=== PATIENT | female | born 1965 | race Caucasian/White ===

== ENCOUNTER → 2019-10-21 12:14 | Outpatient (BNVA) | payer OTHER, SELFPAY | PROVIDERS: Family Provider Family Medicine; PCP Nurse Practitioner Family; Visit Provider Nurse Practitioner Family | DX: Z11.59 Encounter for screening for other viral diseases (principal) | CPT/HCPCS: 87400; 87635 ==

== ENCOUNTER 2020-07-12 09:10 | Outpatient (CLI) | payer SELFPAY ==
--- NOTE | 2020-07-12 09:15 | CT_ITS ---
WS: [id number] CT ABDOMEN PELVIS TECHNIQUE: Noncontrast CT of the abdomen and pelvis with coronal and sagittal reformatted images. CLINICAL INFORMATION: LEFT LOWER QUADRANT ABDOMINAL SWELLING, MASS AND LUMP COMPARISON: CT abdomen pelvis , prior ultrasound June 25, 2020 DLP: 825.[address] scans at [facility] use at least one of these dose optimization techniques: automat ed exposure control; mA and/or kV adjustment per patient size (includes targeted exams where dose is matched to clinical indication); or iterative reconstruction. FINDINGS: Normal noncontrast liver. Noncontrast gallbladder is normal. Normal noncontrast spleen. Lung bases ar e well aerated. Normal GE junction. Adrenal glands are normal. No hydronephrosis in either kidney. No obstructing renal or ureteral calculi. Tiny fat-containing umbilical hernia. No abdominal or pelvic lymphadenopathy. No free fluid in the pelvis. Prior appendectomy. No pelvic or inguinal lymphadenopathy. No visualized left lower quadrant hernia. No herniated bowel. Fatty atrophy of the rectus abdominous. Rectus abdominis diastases. CT/CT abdomen pelvis wo con 19122 IMPRESSION: 1. Small fat-containing umbilical hernia. Rectus abdominis diastases. 2. Fatty atrophy of the left rectus abdominis. No ventral abdominal wall herni a or herniated bowel. 3. No inguinal lymphadenopathy. 4. No other significant changes from previous.
== END 2020-07-12 09:11 | disposition home or self-care (01) ==
PROVIDERS: Family Provider Family Medicine; PCP Nurse Practitioner Family; Visit Provider Family Medicine
DX: R19.04 Left lower quadrant abdominal swelling, mass and lump (principal); Q79.59 Other congenital malformations of abdominal wall
CPT/HCPCS: 74176

== ENCOUNTER 2021-08-14 08:09 | Day surgery (SDC) | payer OTHER, SELFPAY ==
[2021-08-12 14:17] VITALS: BMI 24.2
--- NOTE | 2021-08-13 17:44 | SUR.PREOP ---
patients called 08/13 to ask about patients insulin. he states patient tested blood sugar at home and it read high . I asked pt what was the highest number their meter would read and he stated 600 then it reads high . patient took 50units long acting lantus already as stated per . pt and pt want to know if she can take short acting insulin and states she always has to eat with this because her sugar will drop fast after it is given. They also state the patient has been in the icu several times recently in [facility] due to high blood sugar levels. I called Dr. Zhou and reported patients BS level to him and asked if she could take her short acting insulin. He stated yes they could and to take orange juice if it dropped too low after this. He stated he would still do scheduled procedure tomorrow. I called patients back to tell him this. patients asks if Dr. Zhou would consider admitting her to the hospital overnight to watch her BS level before planned procedure tomorrow and that he doesnt feel like she is safe without it being watched more closely. I advised him to have her seen in the ER if he felt that her BS level was unsafe with her history of recent admissions due to blood sugar. I transferred him to the lead data entry operator and told him to be connected to Dr. Zhou for his further questions of possible admission.
--- NOTE | 2021-08-14 08:41 | W.PM.OPSUD ---
Surgery/Procedure H&P Update DATE OF PROCEDURE: August 14, 2021 DATE H&P PERFORMED: 07/17/21 CHANGES TO PREVIOUS DOCUMENTATION: none PREOP DIAGNOSIS: Constipation and nausea PLANNED PROCEDURE: Operation Date: 08/14/21 09:45 Proposed Procedures p 22070 EGD 32632 COLON K59.00,R11.0(Not Applicable) - DO wilbur Yusuf Colonoscopy(Not Applicable) - Raf Zhou DO
[2021-08-14 08:43] VITALS: BP 133/76; PULSE 54; RESP 18; TEMP 36.2; O2SAT 100
[2021-08-14] MEDS: sodium chloride 0.9% 1,000 ML 30 ML IV (08:43)
--- NOTE | 2021-08-14 08:53 | ANES.PREANE2 ---
Pre-Anesthetic Assessment Height/Weight: Height 1.63 m Weight 63.957 kg Temp Pulse Resp BP Pulse Ox 97.2 F L 54 L 18 133/76 100 08/14/21 08:43 08/14/21 08:43 08/14/21 08:43 08/14/21 08:43 08/14/21 08:43 Preop Diagnosis: Constipation and nausea Operation Date: 08/14/21 09:45 Proposed Procedures p 05860 EGD 20933 COLON K59.00,R11.0(Not Applicable) - DO wilbur Yusuf Colonoscopy(Not Applicable) - Raf Zhou DO Familial anesthetic complications: None Was Beta Beth taken within 24 hours: N/A Was Clonidine taken within 24 hours: N/A Last intake: Intake Last Liquid Date 08/14/21 Last Liquid Time 03:30 Last Solid Date 08/12/21 Last Solid Time 09:00 Social Tobacco and No alcohol Exam alert, oriented x 3, clear to auscultation bilaterally and regular rate & rhythm Airway Mallampati: Class I Dentition: chipped and loose Pulmonary Asthma GI gastroparesis Metabolic Diabetes Mellitus (very poorly controlled - multiple episodes DKA) and Hyperlipidemia Anesthetic Plan ASA status: 4 Anesthesia: MAC Risk of > 500 ml blood loss (7ml/kg in children): No Medications/Allergies Home Medications Medication Instructions Recorded Confirmed Last Taken Type insulin aspart U-100 100 unit/mL 20 unit SUBCUT TID 10/21/19 08/14/21 08/12/21 History (3 mL) subcutaneous pen (Novolog Flexpen U-100 Insulin aspart) aspirin 81 mg tablet,delayed 81 mg PO DAILY 07/17/21 08/14/21 08/12/21 History release (Adult Aspirin Regimen) atorvastatin 20 mg tablet 20 mg PO DAILY 07/17/21 08/14/21 08/13/21 History lisinopril 2.5 mg tablet 2.5 mg PO DAILY 07/17/21 08/14/21 08/12/21 History ondansetron 4 mg disintegrating 4 mg PO Q6H 07/17/21 08/14/21 08/12/21 History tablet insulin glargine 100 unit/mL 50 unit SUBCUT DAILY 08/12/21 08/14/21 08/13/21 History subcutaneous solution (Lantus U-100 Insulin) Allergies Allergy/AdvReac Type Severity Reaction Status Date / Time adhesive tape Allergy blisters Verified 08/14/21 08:39 codeine Allergy hives Verified 08/14/21 08:39 Current Medications Generic Name Dose Route Start Last Admin Trade Name Giovany PRN Reason Stop Dose Admin Sodium Chloride 1,000 mls @ 30 mls/hr 08/14/21 08:30 08/14/21 08:43 Sodium Chloride 0.9% IV 08/15/21 08:29 30 mls/hr .Q24H BRUCE Administration PFSH Anesthesia Medical History Constipation Diabetes DKA (diabetic ketoacidosis) Gastroparesis [place] spotted fever 2015 Surgical History History of 3 sections History of laparoscopic appendectomy History of tonsillectomy Family History Other Cancer Diabetes Hypertension Social History Smoking and tobacco status: current every day smoker Data Anesthesia Cardiac Studies: No Data to Display
[2021-08-14] MEDS: dextrose 50% syringe 50 mL 25 ML IVP (08:58)
[2021-08-14 10:16] VITALS: BP 132/76; PULSE 55; RESP 16; TEMP 36.2; O2SAT 100
[2021-08-14 10:36] VITALS: BP 143/82; PULSE 59; RESP 18; O2SAT 100
--- NOTE | 2021-08-14 13:48 | ANE.PACU2 ---
Inpatient post-anesthesia follow up: Airway intact: Yes Vital signs: Temperature 97.1 F Pulse Rate 59 Respiratory Rate 18 Blood Pressure 143/82 Pulse Oximetry 100 Oxygen Delivery Me thod Room Air Oxygen Flow Rate Fraction of Inspir ed Oxygen Hydration adequate: Yes Nausea and vomiting: No Pain level: 1 Mental status: Baseline
== END 2021-08-14 10:55 | disposition home or self-care (01) ==
PROVIDERS: PCP Nurse Practitioner Family; Visit Provider Surgery
PROC: 0DJ08ZZ Inspection of Upper Intestinal Tract, Via Natural or Artificial Opening Endoscopic (ICD-10-PCS; CPT 43235; principal; 2021-08-14 09:45)
PROC: 0DJD8ZZ Inspection of Lower Intestinal Tract, Via Natural or Artificial Opening Endoscopic (ICD-10-PCS; CPT 45378; 2021-08-14 09:45)
DX: K59.00 Constipation, unspecified (principal); R11.0 Nausea; K64.8 Other hemorrhoids; K29.70 Gastritis, unspecified, without bleeding; K29.80 Duodenitis without bleeding; E11.9 Type 2 diabetes mellitus without complications; E78.5 Hyperlipidemia, unspecified; Z79.4 Long term (current) use of insulin; Z79.82 Long term (current) use of aspirin; F17.210 Nicotine dependence, cigarettes, uncomplicated
CPT/HCPCS: 43239; 45378; 88305; 96374; J2704; J3490; J7030

== ENCOUNTER → 2021-08-29 15:40 | Outpatient (BNVA) | payer OTHER, SELFPAY | PROVIDERS: PCP Nurse Practitioner Family; Referring Provider Nurse Practitioner Family; Visit Provider Internal Medicine | DX: E13.9 Other specified diabetes mellitus without complications (principal); E78.2 Mixed hyperlipidemia; K31.84 Gastroparesis | CPT/HCPCS: 36415; 82947; 84681; 86337; 86341 ==

== ENCOUNTER → 2021-09-25 12:25 | Outpatient (BNVA) | payer MEDICAID, SELFPAY | PROVIDERS: PCP Nurse Practitioner Family; Visit Provider Internal Medicine | DX: E10.649 Type 1 diabetes mellitus with hypoglycemia without coma (principal); E87.6 Hypokalemia; E83.52 Hypercalcemia; E78.2 Mixed hyperlipidemia; K31.84 Gastroparesis; K90.0 Celiac disease; F17.200 Nicotine dependence, unspecified, uncomplicated; Z79.4 Long term (current) use of insulin | CPT/HCPCS: 36415; 80048; 81001; 82310; 83735; 83970; 99214 ==

== ENCOUNTER 2021-11-19 10:13 | Day surgery (SDC) | payer MEDICAID, SELFPAY ==
[2021-11-18 10:48] VITALS: BMI 24.9
[2021-11-19] VITALS (9 sets, daily range): BP systolic 113–137; BP diastolic 62–78; PULSE 52–66; RESP 16–20; TEMP 36.1–36.4; O2SAT 97–100
[2021-11-19] MEDS: sodium chloride 0.9% 1,000 ML 30 ML IV (10:47)
[2021-11-19 10:49] LABS: Glucose Point of Care 144 mg/dL (70-110)
[2021-11-19 10:51] LABS: OR HCG Qualitative Urine Negative (Negative)
--- NOTE | 2021-11-19 11:13 | P.ANESASSM_ITS ---
Pre-Anesthetic Assessment Height/Weight: Height 1.63 m Weight 65.771 kg Temp Pulse Resp BP Pulse Ox O2 Del Method 97.6 F 52 L 16 130/69 100 11/19/21 10:37 11/19/21 10:37 11/19/21 10:37 11/19/21 10:37 11/19/21 10:37 11/19/21 10:37 Preop Diagnosis: Excision of scalp masses Operation Date: 11/19/21 11:40 Proposed Procedures p excision of scalp mass 26659,R22.0(Not Applicable) - Filiberto Medina MD Was Beta Beth taken within 24 hours: N/A Was Clonidine taken within 24 hours: N/A Last intake: Intake Last Liquid Date 11/18/21 Last Liquid Time 22:30 Last Solid Date 11/18/21 Last Solid Time 22:30 Social Tobacco and No alcohol 1/2 ppd pack(s) per day Exam alert, oriented x 3, clear to auscultation bilaterally and regular rate & rhythm Airway Submandibular: within normal limits Cervical ROM: within normal limits Mallampati: Class II Dentition: full History/ROS No significant history except as noted and No significant complaints Pulmonary None reported CV/HEM None reported None reported Hepatic None reported GI None reported Metabolic Diabetes Mellitus Type 1. Insulin pump Musc/skel None reported Neuropsych None reported Anesthetic Plan ASA status: 2 Anesthesia: Anesthesia Evaluation and MAC Risk of > 500 ml blood loss (7ml/kg in children): No Medications/Allergies Home Medications Medication Instructions Recorded Confirmed Last Taken Type aspirin 81 mg tablet,delayed 81 mg PO DAILY 07/17/21 11/19/21 11/17/21 History release (Adult Aspirin Regimen) ondansetron 4 mg disintegrating 4 mg PO Q6H 07/17/21 11/19/21 11/18/21 History tablet glucagon HCl 1 mg solution for 1 mg SUBCUT Q20M PRN hypoglycemia 08/29/21 11/19/21 Unknown Rx injection (Glucagon (HCl) #1 ea Emergency Kit) fexofenadine 60 mg-pseudoephedrine 1 tab PO Q12H PRN sinus symptoms 09/29/21 11/19/21 11/18/21 Rx ER 120 mg tablet,ext.release,12 hr 14 days #30 tabs (Katharine-D 12 Hour) fluticasone propionate 50 1 spray intranasal BID PRN nasal 09/29/21 11/19/21 11/18/21 Rx mcg/actuation nasal congestion #9.9 mL spray,suspension (Flonase Allergy Relief) meclizine 50 mg tablet (Antivert) 50 mg PO BID PRN dizziness #20 tabs 09/30/21 11/19/21 11/18/21 Rx pseudoephedrine HCl 120 mg 120 mg PO BID PRN nasal congestion 09/30/21 11/19/21 11/18/21 Rx tablet,extended release (Sudafed #30 tabs 12 Hour) insulin aspart U-100 100 unit/mL 20 unit (0.2 mL) SUBCUT TID #20 mL 10/09/21 11/19/21 11/18/21 Rx (3 mL) subcutaneous pen (Novolog Flexpen U-100 Insulin aspart) albuterol sulfate 90 mcg/actuation 2 puff inhalation QID PRN 10/14/21 11/18/21 Unknown Rx aerosol inhaler (ProAir HFA) shortness of breath or wheezing 30 days #18 grams atorvastatin 20 mg tablet 20 mg PO DAILY 90 days #90 tabs 10/14/21 11/19/21 11/12/21 Rx blood-glucose meter,continuous #1 ea 10/14/21 11/11/21 Unknown Rx (Dexcom G6 [address] Clerk misc) blood-glucose sensor (Dexcom G6 #9 ea 10/14/21 11/11/21 Unknown Rx Sensor device) blood-glucose transmitter (Dexcom #3 ea 10/14/21 11/11/21 Unknown Rx G6 Transmitter device) hydroxyzine HCl 10 mg tablet 10 mg PO TID PRN anxiety #90 tabs 10/14/21 11/19/21 11/18/21 Rx insulin pump cart,automated,BT #30 ea 10/14/21 11/11/21 Unknown Rx (Omnipod 5 G6 Pods (Gen 5) subcutaneous cartridge) insulin pump cartridge,automated #1 ea 10/14/21 11/11/21 Unknown Rx dose,BT with controller subcutaneous (Omnipod 5 G6 Intro Kit (Gen 5) subcutaneous cartridge with controller) lisinopril 2.5 mg tablet 2.5 mg PO DAILY 90 days #90 tabs 10/14/21 11/19/21 11/18/21 Rx Allergies Allergy/AdvReac Type Severity Reaction Status Date / Time adhesive tape Allergy blisters Verified 11/18/21 10:45 codeine Allergy hives Verified 11/18/21 10:45 Current Medications Generic Name Dose Route Start Last Admin Trade Name Giovany PRN Reason Stop Dose Admin Sodium Chloride 1,000 mls @ 30 mls/hr 11/19/21 10:30 11/19/21 10:47 Sodium Chloride 0.9% IV 11/20/21 10:29 30 mls/hr .Q24H BRUCE Administration PFSH Anesthesia Medical History Celiac disease Constipation Diabetes DKA (diabetic ketoacidosis) Gastroparesis [place] spotted fever 2015 Surgical History History of 3 sections History of laparoscopic appendectomy History of tonsillectomy Family History Sister Clotting disorder Other Cancer Diabetes Hypertension Denies family history of Bleeding disorder Thyroid disease Stroke Social History Smoking and tobacco status: current every day smoker (a pack ) Data Anesthesia Cardiac Studies: No Data to Display
--- NOTE | 2021-11-19 11:44 | W.PM.OPSUD ---
Surgery/Procedure H&P Update DATE OF PROCEDURE: November 19, 2021 DATE H&P PERFORMED: 10/28/21 H&P UPDATE INFORMATION: I have reviewed H&P completed within last 30 days, I have examined patient prior to procedure and No changes to prior documentation PREOP DIAGNOSIS: Excision of scalp masses PRIMARY INDICATION FOR PROCEDURE: The same PLANNED PROCEDURE: Operation Date: 11/19/21 11:40 Proposed Procedures p excision of scalp mass 80857,R22.0(Not Applicable) - Filiberto Medina MD
[2021-11-19] MEDS: ceFAZolin 2,000 MG in sodium chloride 0.9% (plus) 50 ML 100 MG IV (11:56)
[2021-11-19] MEDS: neomycin-poly-bacitracin oint 28 gm 1 APPLIC TOPICAL (12:34)
--- NOTE | 2021-11-19 12:38 | P.OP_ITS ---
Operative Report Date of procedure: November 19, 2021 Pre-op diagnosis: Preop Diagnosis Excision of scalp masses Post-op diagnosis: Sebaceous cysts of the scalp Procedure done: Excision of scalp masses Specimens removed/disposition: Anterior scalp mass 1.5 x 1.5 cm with a skin ellipse Posterior scalp mass 1.5 x 1.5 cm Surgeon: Filiberto Medina MD Truck Terminal Manager: certified composites technician Cely Circulating nurse Martha Anesthesia: General (LMA ARIANA De La Torre) Estimated blood loss (mL): 10 Procedure: After identifying the patient holding area, the scalp mass was marked before the procedure by myself, patient was then taken to the operative suite, was placed in supine position LMA was placed by anesthesia, IV propofol was infused by the anesthesia, prophylactic IV antibiotics were given per protocol, patient was then positioned in the left lateral position were all pressure points were padded and left ax roll was placed. Prep and drape of the scalp lesions waere done under the usual sterile technique after appropriate removal of the hair around the scalp masses Time-out was done verifying the patient's name/date of /planned procedure and destination after the procedure, all were in agreement. After palpation of the anterior scalp mass, I did an elliptical incision on top of the mass including the punctum, dissection was carried after the skin incision all the way to the periosteum, after appropriate dissection, the specimen was then passed to the circulating nurse for permanent pathology. Thorough irrigation of the cavity was done and hemostasis, followed by single layer 2-0 nylon horizontal mattress sutures Lidocaine 1% was injected at the site of the incision that prior to the injection aspiration was done to make sure no injection is going into any vessel, followed by double antibiotic ointment and dry dresing. Same technique was used towards the posterior scalp mass and dissection was done. The specimen was then passed to the circulating nurse for permanent pathology, followed by irrigation and hemostasis, then Single layer 2 nylon horizontal mattress sutures were applied followed by triple antibiotic and dry dressing. Patient tolerated the procedure well, count of instruments, needles and sponges were completed at the end of the procedure. And then patient was taken to the recovery area in stable condition. I Was present for the whole entire procedure
[2021-11-19] MEDS: HYDROcodone-acetaminophen 5-325 mg Tablet 1 TAB PO (13:36)
--- NOTE | 2021-11-19 15:20 | ANE.PACU2 ---
Inpatient post-anesthesia follow up: Airway intact: Yes Vital signs: Temperature 97.4 F Pulse Rate 57 Respiratory Rate 16 Blood Pressure 126/78 Pulse Oximetry 100 Oxygen Delivery Me thod Room Air Oxygen Flow Rate Fraction of Inspir ed Oxygen Hydration adequate: Yes Nausea and vomiting: No Pain level: 2 Mental status: Baseline
== END 2021-11-19 13:55 | disposition home or self-care (01) ==
PROVIDERS: Anesthesiology; PCP Family Medicine; Visit Provider Surgery
PROC: (CPT 11422; principal; 2021-11-19 11:30)
DX: R22.0 Localized swelling, mass and lump, head (principal); E11.9 Type 2 diabetes mellitus without complications; F17.210 Nicotine dependence, cigarettes, uncomplicated
CPT/HCPCS: 11422 ×2; 36416; 81025; 82962; 84703; 88304; J1100; J2405; J2704; J3010; J3490; J7030

== ENCOUNTER → 2021-11-21 10:25 | Outpatient (BNVA) | payer MEDICAID, SELFPAY | PROVIDERS: PCP Family Medicine; Referring Provider Family Medicine; Visit Provider Podiatrist Foot & Ankle Surgery | DX: Q82.8 Other specified congenital malformations of skin (principal); M20.12 Hallux valgus (acquired), left foot; M20.11 Hallux valgus (acquired), right foot; M21.611 Bunion of right foot; M21.612 Bunion of left foot | CPT/HCPCS: 73630 ==

== ENCOUNTER → 2021-12-10 11:16 | Outpatient (BNVA) | payer MEDICAID, SELFPAY | PROVIDERS: PCP Family Medicine; Visit Provider Nurse Practitioner Family | DX: J11.1 Influenza due to unidentified influenza virus with other respiratory manifestations (principal); B34.9 Viral infection, unspecified; H65.191 Other acute nonsuppurative otitis media, right ear | CPT/HCPCS: 87400 ==

== ENCOUNTER → 2021-12-19 14:00 | Outpatient (BNVA) | payer MEDICAID, SELFPAY | PROVIDERS: PCP Family Medicine; Visit Provider Family Medicine | DX: H93.11 Tinnitus, right ear (principal); H91.91 Unspecified hearing loss, right ear; H26.9 Unspecified cataract; E13.9 Other specified diabetes mellitus without complications; E11.9 Type 2 diabetes mellitus without complications; E78.2 Mixed hyperlipidemia; H25.89 Other age-related cataract; E87.6 Hypokalemia | CPT/HCPCS: 36415; 80053; 80061; 83036 ==

== ENCOUNTER → 2022-01-22 15:05 | Outpatient (BNVA) | payer MEDICAID, SELFPAY | PROVIDERS: PCP Family Medicine; Visit Provider Nurse Practitioner Family | DX: R68.89 Other general symptoms and signs (principal); U07.1 COVID-19 | CPT/HCPCS: 87400; 87426 ==

== ENCOUNTER 2022-02-20 11:52 | Outpatient (CLI) | payer MEDICAID, SELFPAY ==
[2022-02-20 13:13] LABS: Creatinine Urine, Random 92 mg/dL (28-217); Microalbum Creatinine Ratio Ur 11 mg/dL (0-20); Microalbumin Random Urine 1 ug/dL (0-20)
[2022-02-20 13:16] LABS: Estmated Average Glucose 186; Hemoglobin A1C 8.1 % (4.0-6.0)
== END 2022-02-20 11:53 | disposition home or self-care (01) ==
LOC: LAB 11:55
PROVIDERS: PCP Family Medicine; Visit Provider Internal Medicine
DX: E78.2 Mixed hyperlipidemia (principal)
CPT/HCPCS: 36415; 82044; 83036

== ENCOUNTER 2022-03-25 14:41 | Emergency (ER) | payer MEDICAID, SELFPAY ==
[2022-03-25] VITALS (7 sets, daily range): BP systolic 115–141; BP diastolic 66–85; PULSE 64–74; RESP 16–18; TEMP 36.4; O2SAT 97–100; BMI 26.4
[2022-03-25 15:39] LABS: Glucose Point of Care > 600 mg/dL (70-110)
[2022-03-25 16:12] LABS: Basophils # 0.1 10^3/uL (0.0-0.1); Basophils % 1.3 %; Eosinophils # 0.5 10^3/uL (0.0-0.8); Eosinophils % 5.6 %; Hematocrit 44.9 % (37.0-47.0); Hemoglobin 14.9 g/dL (11.5-15.3); Lymphocytes # 1.8 10^3/uL (0.8-4.8); Mean Corpuscular HGB Conc 33.2 g/dL (30.0-36.0); Mean Corpuscular Hemoglobin 30.1 pg (28.0-34.0); Mean Corpuscular Volume 90.7 fl (81-99); Mean Platelet Volume 10.4 fL (7.4-10.4); Monocytes # 0.6 10^3/uL (0.2-0.9); Monocytes % 6.8 %; Neutrophils # 5.35 10^3/uL (1.8-7.7); Neutrophils % 63.9 %; Nucleated Red Blood Cells % 0 %; Platelet Count 202 10^3/cmm (130-400); Red Blood Count 4.95 10^6/uL (4.1-5.3); Red Cell Distribution Width 11.5 % (12.1-15.1); White Blood Count 8.4 10^3/uL (4.0-10.0)
--- NOTE | 2022-03-25 16:17 | ED_ITS ---
Documented by User: Antonio Foley DO 04/02/22 16:18 HPI - General Adult General: Chief complaint: General Medical Stated complaint: high bloodsugar Time Seen by Provider: 03/25/22 15:53 Source: patient Mode of arrival: ambulatory History of Present Illness: 56-year-old female presents to the emergency room with elevated blood sugars. She usually uses a Dexcom and insulin pump there was some kind of problem with her Dexcom on now her Dexcom is working but her insulin pump will not receive any input from her Dexcom so her pump has not been working properly and she has had to go back to using Lantus and sliding scale insulin. She been taking Lantus at night and using sliding scale throughout the day her blood sugars however are significantly elevated she denies any dysuria urgency or frequency. She denies any abdominal pain chest pain cough shortness of breath. Onset (ago): day(s) Relieving factors: none Exacerbating factors: none Associated symptoms: Reports malaise; Deny chest pain, confusion, cough, diaphoresis, decreased appetite, dyspnea, fevers/chills, headache(s), nausea, rash, palpitations, seizures, short of breath, syncope, vomiting or weakness Treatments prior to arrival: none Review of Systems Const: Reports: fatigue and malaise; Denies: fever(s), chills or diaphoresis ENMT: Denies: throat pain, ear or mastoid pain, nasal discharge or nasal congestion Card: Denies: chest pain, palpitations or syncope Resp: Denies: dyspnea, productive cough or non-productive cough GI: Denies: nausea or vomiting : Denies: flank pain, difficulty voiding, dysuria, urinary frequency or urinary urgency Skin/Breast: Denies: rash Neuro: Denies: headache(s) or confusion PFSH ED PFSH: Medical History Celiac disease Constipation Diabetes DKA (diabetic ketoacidosis) Gastroparesis [place] spotted fever 2016 Scalp mass Surgical History History of 3 sections History of laparoscopic appendectomy History of tonsillectomy Hx of colonoscopy Family History Sister Clotting disorder Other Cancer Diabetes Hypertension Denies family history of Bleeding disorder Thyroid disease Stroke Social History Smoking and tobacco status: current every day smoker (a pack ) Physical Exam Const: GENERAL APPEARANCE: cooperative and comfortable ORIENTATION/CONSCIOUSNESS: Yes awake, Yes oriented to person, Yes oriented to place and Yes oriented to time HENMT: COMMON NORMALS: normocephalic, atraumatic and hearing grossly normal bilaterally HEAD & SCALP: normocephalic and atraumatic Resp: COMMON NORMALS: normal respiratory effort, No retractions, No use of accessory muscles and clear to auscultation bilaterally AUSCULTATION: clear to auscultation bilaterally Cardio: COMMON NORMALS: regular rate, regular rhythm and No murmurs present (Cardio) RATE: regular rate RHYTHM: regular rhythm GI: COMMON NORMALS: Soft to palpation and No hepatosplenomegaly present AUSCULTATION: Yes normoactive bowel sounds PALPATION: Yes Soft to palpation, No Tenderness to palpation present (GI), No Guarding due to palpation present (GI) and Yes No hepatosplenomegaly present Extremity: COMMON NORMALS: normal to inspection, capillary refill normal, no clubbing, cyanosis or edema, no calf tenderness and no pedal edema Neuro: SENSORIUM/ORIENTATION: Yes oriented to person, Yes oriented to place and Yes oriented to time Skin: COMMON NORMALS: no rashes or lesions noted GENERAL SKIN EXAM: no rashes or lesions noted Course Vital Signs: Vital signs: Vital Signs Temperature 97.5 F L 03/25/22 15:29 Pulse Rate 72 03/25/22 20:30 Respiratory Rate 18 03/25/22 20:30 Blood Pressure 132/78 03/25/22 20:30 Pulse Oximetry 97 03/25/22 20:30 Oxygen Delivery Me thod 03/25/22 18:40 MDM - General Adult Medical Decision Making Care signed out to Dr. Morrison at change of shift. See final notes for diagnosis and disposition. Patient presents here with hyperglycemia as her insulin pump is 1 out she is not DKA her blood sugar here is improved had a long conversation with patient patient also spoke to Dr. Bermudez with me in the room and adjusted her insulin at this time until she is able to get her insulin pump working she is to follow-up with Dr. Bermudez tomorrow as well patient is to return if worsening she understands agrees to plan. Medical Records I reviewed the patient's medical records. Lab Data I reviewed the patient's lab results. 03/25/22 16:03 03/25/22 16:03 Laboratory Results WBC 8.4 10^3/uL (4.0-10.0) 03/25/22 16:03 RBC 4.95 10^6/uL (4.1-5.3) 03/25/22 16:03 Hgb 14.9 g/dL (11.5-15.3) 03/25/22 16:03 Hct 44.9 % (37.0-47.0) 03/25/22 16:03 MCV 90.7 fl (81-99) 03/25/22 16:03 MCH 30.1 pg (28.0-34.0) 03/25/22 16:03 MCHC 33.2 g/dL (30.0-36.0) 03/25/22 16:03 RDW 11.5 % (12.1-15.1) L 03/25/22 16:03 Plt Count 202 10^3/cmm (130-400) 03/25/22 16:03 MPV 10.4 fL (7.4-10.4) 03/25/22 16:03 Neut % (Auto) 63.9 % 03/25/22 16:03 Lymph % (Auto) 22.0 % 03/25/22 16:03 [place] % (Auto) 6.8 % 03/25/22 16:03 Eos % (Auto) 5.6 % 03/25/22 16:03 Baso % (Auto) 1.3 % 03/25/22 16:03 Neut # (Auto) 5.35 10^3/uL (1.8-7.7) 03/25/22 16:03 Lymph # (Auto) 1.8 10^3/uL (0.8-4.8) 03/25/22 16:03 [place] # (Auto) 0.6 10^3/uL (0.2-0.9) 03/25/22 16:03 Eos # (Auto) 0.5 10^3/uL (0.0-0.8) 03/25/22 16:03 Baso # (Auto) 0.1 10^3/uL (0.0-0.1) 03/25/22 16:03 Nucleated RBC % (auto) 0 % 03/25/22 16:03 Nucleated RBCs # 0.0 /100WBC 03/25/22 16:03 Specimen Type Arterial 03/25/22 16:33 Sample Site Radial, right 03/25/22 16:33 ABG pH 7.43 (7.35-7.45) 03/25/22 16:33 ABG pCO2 37.5 mmHg (35-45) 03/25/22 16:33 ABG pO2 103.0 mmHg (80.0-100.0) H 03/25/22 16:33 ABG HCO3 24.9 mmol/L (22-26) 03/25/22 16:33 ABG O2 Saturation 99.3 03/25/22 16:33 ABG Base Excess 0.8 mmol/L (-2.0-2.0) 03/25/22 16:33 Nate Test Pos 03/25/22 16:33 A-a O2 Gradient 0.1 mmHg (5-10) L 03/25/22 16:33 Hematocrit 43.7 % (37-47) 03/25/22 16:33 Hgb O2 Saturation 93.1 % (95-100) L 03/25/22 16:33 Carboxyhemoglobin 6.0 %THgb (0.4-20.1) 03/25/22 16:33 Methemoglobin 0.3 % (0.4-1.5) L 03/25/22 16:33 Total Hemoglobin 14.3 g/dL (12-16) 03/25/22 16:33 Sodium 129.0 mmol/L (131-143) L 03/25/22 16:33 Potassium 4.9 mmol/L (3.5-5.0) 03/25/22 16:33 Glucose 592.0 mg/dL (70-115) H 03/25/22 16:33 Ionized Calcium 1.2 mmol/L (1.1-1.4) 03/25/22 16:33 O2 Delivery Device Room air 03/25/22 16:33 FiO2 21.0 % 03/25/22 16:33 Dispensing Operator ID glc 03/25/22 16:33 Sodium 129 mmol/L (136-145) L 03/25/22 16:03 Potassium 5.1 mmol/L (3.5-5.1) 03/25/22 16:03 Chloride 92 mmol/L (98-107) L 03/25/22 16:03 Carbon Dioxide 24 mmol/L (22-29) 03/25/22 16:03 Anion Gap 18.1 (5-19) 03/25/22 16:03 BUN 18 mg/dL (6-20) 03/25/22 16:03 Creatinine 0.6 mg/dL (0.5-0.9) 03/25/22 16:03 GFR Calculation 104.2 mL/min (90-130) 03/25/22 16:03 Glucose 690 mg/dL (65-115) H* 03/25/22 16:03 POC Glucose 405 mg/dL (70-110) H 03/25/22 20:10 Calculated Osmolality 303 mOsm/kg (285-295) H 03/25/22 16:03 Calcium 9.0 mg/dL (8.5-10.5) 03/25/22 16:03 Total Bilirubin 0.7 mg/dL (0.15-1.2) 03/25/22 16:03 AST 31 U/L (0-32) 03/25/22 16:03 ALT 49 U/L (0-33) H 03/25/22 16:03 Alkaline Phosphatase 158 U/L (35-105) H 03/25/22 16:03 Total Protein 7.0 g/dL (6.6-8.7) 03/25/22 16:03 Albumin 3.9 g/dL (3.5-5.2) 03/25/22 16:03 Globulin 3.1 g/dL (1.3-4.6) 03/25/22 16:03 Urine Color Yellow (Yellow) 03/25/22 16:32 Urine Appearance Clear (CLEAR) 03/25/22 16:32 Urine pH 5 (5-7) 03/25/22 16:32 Ur Specific [place] 1.010 (1.005-1.030) 03/25/22 16:32 Urine Protein Neg (Negative) 03/25/22 16:32 Urine Glucose (UA) 4+ (Normal) H 03/25/22 16:32 Urine Ketones 1+ (Negative) H 03/25/22 16:32 Urine Blood Neg (Negative) 03/25/22 16:32 Urine Nitrate Negative (Negative) 03/25/22 16:32 Urine Bilirubin Neg (Negative) 03/25/22 16:32 Urine Urobilinogen Neg mg/dL (Negative) 03/25/22 16:32 Ur Leukocyte Esterase Negative (Negative) 03/25/22 16:32 Serum Ketones Negative (Negative) 03/25/22 16:03 Discharge Plan Discharge Patient Disposition: Home Clinical Impression: Hyperglycemia Condition: Stable Prescriptions: No Action atorvastatin 20 mg tablet 20 mg PO DAILY 90 Days Qty: 90 3RF lisinopril 2.5 mg tablet 2.5 mg PO DAILY 90 Days Qty: 90 1RF hydroxyzine HCl 10 mg tablet 10 mg PO TID PRN (Reason: anxiety) Qty: 90 1RF albuterol sulfate [ProAir HFA] 90 mcg/actuation HFA aerosol inhaler 2 puff inhalation QID PRN (Reason: shortness of breath or wheezing) 30 Days Qty: 18 5RF aspirin [Adult Aspirin Regimen] 81 mg tablet,delayed release (DR/EC) 81 mg PO DAILY Hold Instructions: Resume on 11/23/21. ondansetron 4 mg tablet,disintegrating 4 mg PO Q6H Glucagon (HCl) Emergency Kit 1 mg recon soln 1 mg SUBCUT Q20M PRN (Reason: hypoglycemia) Qty: 1 3RF Rx Instructions: until target blood sugar attained Antivert 50 mg tablet 50 mg PO BID PRN (Reason: dizziness) Qty: 20 0RF insulin aspart U-100 [Novolog FlexPen U-100 Insulin] 100 unit/mL (3 mL) insulin pen 20 unit SUBCUT TID Qty: 20 3RF Rx Instructions: via pump (DME) Dexcom G6 Transmitter Device See Rx Instructions .Route Qty: 3 3RF Rx Instructions: Change every 90 days. (DME) Dexcom G6 Photography Sales Associate Misc See Rx Instructions .Route Qty: 1 0RF Rx Instructions: Check BS 4 - 6 times a day. (DME) Dexcom G6 Sensor Device See Rx Instructions .Route Qty: 9 3RF Rx Instructions: Change every 10 days. (DME) Omnipod 5 G6 Intro Kit (Gen 5) Cartridge See Rx Instructions .Route Qty: 1 0RF Rx Instructions: As directed (DME) Omnipod 5 G6 Pods (Gen 5) Cartridge See Rx Instructions .Route Qty: 30 3RF Rx Instructions: Change every 3 days. Discharge Orders: Discharge ED (Routine); Ordered 03/25/22 Ordered By: Yakov Morrison Referrals: Brenna Bermudez MD [Physician] - 1-3 days Carla Blevins MD [Primary Care Provider] - Discharge Diet: Advance as tolerated Discharge Activity: Resume usual activity Patient Instructions: Diabetic Hyperglycemia (ED) Stand Alone Forms: Work/School Release Coding Level of Care Code ED Granulizing Machine Operator for Chg Fwd Documented by User: Yakov Morrison MD 03/25/22 20:18 HPI - General Adult General: Chief complaint: General Medical Stated complaint: high bloodsugar Time Seen by Provider: 03/25/22 15:53 PFSH ED PFSH: Medical History Celiac disease Constipation Diabetes DKA (diabetic ketoacidosis) Gastroparesis [place] spotted fever 2016 Scalp mass Surgical History History of 3 sections History of laparoscopic appendectomy History of tonsillectomy Hx of colonoscopy Family History Sister Clotting disorder Other Cancer Diabetes Hypertension Denies family history of Bleeding disorder Thyroid disease Stroke Social History Smoking and tobacco status: current every day smoker (a pack ) Course Vital Signs: Vital signs: Vital Signs Temperature 97.5 F L 03/25/22 15:29 Pulse Rate 72 03/25/22 20:30 Respiratory Rate 18 03/25/22 20:30 Blood Pressure 132/78 03/25/22 20:30 Pulse Oximetry 97 03/25/22 20:30 Oxygen Delivery Me thod 03/25/22 18:40 MDM - General Adult Medical Decision Making Patient presents here with hyperglycemia as her insulin pump is 1 out she is not DKA her blood sugar here is improved had a long conversation with patient patient also spoke to Dr. Bermudez with me in the room and adjusted her insulin at t his time until she is able to get her insulin pump working she is to follow-up with Dr. Bermudez tomorrow as well patient is to return if worsening she understands agrees to plan. Lab Data 03/25/22 16:03 03/25/22 16:03 Laboratory Results WBC 8.4 10^3/uL (4.0-10.0) 03/25/22 16:03 RBC 4.95 10^6/uL (4.1-5.3) 03/25/22 16:03 Hgb 14.9 g/dL (11.5-15.3) 03/25/22 16:03 Hct 44.9 % (37.0-47.0) 03/25/22 16:03 MCV 90.7 fl (81-99) 03/25/22 16:03 MCH 30.1 pg (28.0-34.0) 03/25/22 16:03 MCHC 33.2 g/dL (30.0-36.0) 03/25/22 16:03 RDW 11.5 % (12.1-15.1) L 03/25/22 16:03 Plt Count 202 10^3/cmm (130-400) 03/25/22 16:03 MPV 10.4 fL (7.4-10.4) 03/25/22 16:03 Neut % (Auto) 63.9 % 03/25/22 16:03 Lymph % (Auto) 22.0 % 03/25/22 16:03 [place] % (Auto) 6.8 % 03/25/22 16:03 Eos % (Auto) 5.6 % 03/25/22 16:03 Baso % (Auto) 1.3 % 03/25/22 16:03 Neut # (Auto) 5.35 10^3/uL (1.8-7.7) 03/25/22 16:03 Lymph # (Auto) 1.8 10^3/uL (0.8-4.8) 03/25/22 16:03 [place] # (Auto) 0.6 10^3/uL (0.2-0.9) 03/25/22 16:03 Eos # (Auto) 0.5 10^3/uL (0.0-0.8) 03/25/22 16:03 Baso # (Auto) 0.1 10^3/uL (0.0-0.1) 03/25/22 16:03 Nucleated RBC % (auto) 0 % 03/25/22 16:03 Nucleated RBCs # 0.0 /100WBC 03/25/22 16:03 Specimen Type Arterial 03/25/22 16:33 Sample Site Radial, right 03/25/22 16:33 ABG pH 7.43 (7.35-7.45) 03/25/22 16:33 ABG pCO2 37.5 mmHg (35-45) 03/25/22 16:33 ABG pO2 103.0 mmHg (80.0-100.0) H 03/25/22 16:33 ABG HCO3 24.9 mmol/L (22-26) 03/25/22 16:33 ABG O2 Saturation 99.3 03/25/22 16:33 ABG Base Excess 0.8 mmol/L (-2.0-2.0) 03/25/22 16:33 Nate Test Pos 03/25/22 16:33 A-a O2 Gradient 0.1 mmHg (5-10) L 03/25/22 16:33 Hematocrit 43.7 % (37-47) 03/25/22 16:33 Hgb O2 Saturation 93.1 % (95-100) L 03/25/22 16:33 Carboxyhemoglobin 6.0 %THgb (0.4-20.1) 03/25/22 16:33 Methemoglobin 0.3 % (0.4-1.5) L 03/25/22 16:33 Total Hemoglobin 14.3 g/dL (12-16) 03/25/22 16:33 Sodium 129.0 mmol/L (131-143) L 03/25/22 16:33 Potassium 4.9 mmol/L (3.5-5.0) 03/25/22 16:33 Glucose 592.0 mg/dL (70-115) H 03/25/22 16:33 Ionized Calcium 1.2 mmol/L (1.1-1.4) 03/25/22 16:33 O2 Delivery Device Room air 03/25/22 16:33 FiO2 21.0 % 03/25/22 16:33 Dispensing Operator ID glc 03/25/22 16:33 Sodium 129 mmol/L (136-145) L 03/25/22 16:03 Potassium 5.1 mmol/L (3.5-5.1) 03/25/22 16:03 Chloride 92 mmol/L (98-107) L 03/25/22 16:03 Carbon Dioxide 24 mmol/L (22-29) 03/25/22 16:03 Anion Gap 18.1 (5-19) 03/25/22 16:03 BUN 18 mg/dL (6-20) 03/25/22 16:03 Creatinine 0.6 mg/dL (0.5-0.9) 03/25/22 16:03 GFR Calculation 104.2 mL/min (90-130) 03/25/22 16:03 Glucose 690 mg/dL (65-115) H* 03/25/22 16:03 POC Glucose 405 mg/dL (70-110) H 03/25/22 20:10 Calculated Osmolality 303 mOsm/kg (285-295) H 03/25/22 16:03 Calcium 9.0 mg/dL (8.5-10.5) 03/25/22 16:03 Total Bilirubin 0.7 mg/dL (0.15-1.2) 03/25/22 16:03 AST 31 U/L (0-32) 03/25/22 16:03 ALT 49 U/L (0-33) H 03/25/22 16:03 Alkaline Phosphatase 158 U/L (35-105) H 03/25/22 16:03 Total Protein 7.0 g/dL (6.6-8.7) 03/25/22 16:03 Albumin 3.9 g/dL (3.5-5.2) 03/25/22 16:03 Globulin 3.1 g/dL (1.3-4.6) 03/25/22 16:03 Urine Color Yellow (Yellow) 03/25/22 16:32 Urine Appearance Clear (CLEAR) 03/25/22 16:32 Urine pH 5 (5-7) 03/25/22 16:32 Ur Specific [place] 1.010 (1.005-1.030) 03/25/22 16:32 Urine Protein Neg (Negative) 03/25/22 16:32 Urine Glucose (UA) 4+ (Normal) H 03/25/22 16:32 Urine Ketones 1+ (Negative) H 03/25/22 16:32 Urine Blood Neg (Negative) 03/25/22 16:32 Urine Nitrate Negative (Negative) 03/25/22 16:32 Urine Bilirubin Neg (Negative) 03/25/22 16:32 Urine Urobilinogen Neg mg/dL (Negative) 03/25/22 16:32 Ur Leukocyte Esterase Negative (Negative) 03/25/22 16:32 Serum Ketones Negative (Negative) 03/25/22 16:03 Discharge Plan Discharge Patient Disposition: Home Clinical Impression: Hyperglycemia Condition: Stable Prescriptions: No Action atorvastatin 20 mg tablet 20 mg PO DAILY 90 Days Qty: 90 3RF lisinopril 2.5 mg tablet 2.5 mg PO DAILY 90 Days Qty: 90 1RF hydroxyzine HCl 10 mg tablet 10 mg PO TID PRN (Reason: anxiety) Qty: 90 1RF albuterol sulfate [ProAir HFA] 90 mcg/actuation HFA aerosol inhaler 2 puff inhalation QID PRN (Reason: shortness of breath or wheezing) 30 Days Qty: 18 5RF aspirin [Adult Aspirin Regimen] 81 mg tablet,delayed release (DR/EC) 81 mg PO DAILY Hold Instructions: Resume on 11/23/21. ondansetron 4 mg tablet,disintegrating 4 mg PO Q6H Glucagon (HCl) Emergency Kit 1 mg recon soln 1 mg SUBCUT Q20M PRN (Reason: hypoglycemia) Qty: 1 3RF Rx Instructions: until target blood sugar attained Antivert 50 mg tablet 50 mg PO BID PRN (Reason: dizziness) Qty: 20 0RF insulin aspart U-100 [Novolog FlexPen U-100 Insulin] 100 unit/mL (3 mL) insulin pen 20 unit SUBCUT TID Qty: 20 3RF Rx Instructions: via pump (DME) Dexcom G6 Transmitter Device See Rx Instructions .Route Qty: 3 3RF Rx Instructions: Change every 90 days. (DME) Dexcom G6 Photography Sales Associate Misc See Rx Instructions .Route Qty: 1 0RF Rx Instructions: Check BS 4 - 6 times a day. (DME) Dexcom G6 Sensor Device See Rx Instructions .Route Qty: 9 3RF Rx Instructions: Change every 10 days. (DME) Omnipod 5 G6 Intro Kit (Gen 5) Cartridge See Rx Instructions .Route Qty: 1 0RF Rx Instructions: As directed (DME) Omnipod 5 G6 Pods (Gen 5) Cartridge See Rx Instructions .Route Qty: 30 3RF Rx Instructions: Change every 3 days. Discharge Orders: Discharge ED (Routine); Ordered 03/25/22 Ordered By: Yakov Morrison Referrals: Brenna Bermudez MD [Physician] - 1-3 days Carla Blevins MD [Primary Care Provider] - Discharge Diet: Advance as tolerated Discharge Activity: Resume usual activity Patient Instructions: Diabetic Hyperglycemia (ED) Stand Alone Forms: Work/School Release Coding Level of Care Code ED Granulizing Machine Operator for Mari Sandoval
--- NOTE | 2022-03-25 16:18 | ECG_ITS ---
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 Measurements Intervals [place] Rate: 60 P: 70 AL: 159 QRS: 22 QRSD: 98 T: 61 QT: 419 QTc: 420 Interpretive Statements SINUS RHYTHM LOW QRS VOLTAGE IN PRECORDIAL LEADS [QRS DEFLECTION < 1.0 mV IN CHEST LEADS] No previous ECG available for comparison Electronically Signed On 03-25-2022 18:08:40 PSYCHOLOGY ASSOCIATE by David Rosa M.D. [id number]
[2022-03-25 16:27] LABS: Ketone (Acetest) Serum Negative (Negative)
[2022-03-25] MEDS: sodium chloride 0.9% 1,000 ML 999 ML IV ×3 (16:33→19:46)
[2022-03-25 16:36] LABS: Alanine Aminotransferase 49 U/L (0-33); Albumin Level 3.9 g/dL (3.5-5.2); Alkaline Phosphatase 158 U/L (35-105); Anion Gap 18.1 (5-19); Aspartate Amino Transferase 31 U/L (0-32); Blood Urea Nitrogen 18 mg/dL (6-20); Carbon Dioxide 24 mmol/L (22-29); Chloride 92 mmol/L (98-107); Globulin 3.1 g/dL (1.3-4.6); Glomerular Filtration Rate 104.2 mL/min (90-130); Osmolality Calculated 303 mOsm/kg (285-295); Potassium 5.1 mmol/L (3.5-5.1); Sodium 129 mmol/L (136-145); Total Bilirubin 0.7 mg/dL (0.15-1.2)
[2022-03-25 16:42] LABS: Glucose 690 mg/dL (65-115)
[2022-03-25 16:45] LABS: ABG PCO2 37.5 mmHg (35-45); ABG PH Result 7.43 (7.35-7.45); Alveolar-Arterial Oxygen Gradi 0.1 mmHg (5-10); Arterial Blood Gas Hematocrit 43.7 % (37-47); Base Excess ABG 0.8 mmol/L (-2.0-2.0); Blood Gas Allen Test Pos; Blood Gas Operator Identificat glc; Blood Gas Sample Site Radial, right; Blood Gas Sample Type Arterial; HCO3 ABG 24.9 mmol/L (22-26); HGB O2 Sat 93.1 % (95-100); Ionized Calcium Level - ABG 1.2 mmol/L (1.1-1.4); Methemoglobin 0.3 % (0.4-1.5); Oxygen Device ROOM AIR; Oxygen Saturation ABG 99.3; Potassium Level - ABG 4.9 mmol/L (3.5-5.0); Total Hemoglobin 14.3 g/dL (12-16)
[2022-03-25] MEDS: insulin regular-human 100 units/1 mL 10 UNIT IVP ×2 (16:59→18:05)
[2022-03-25 17:10] LABS: Add Urine Microscopic? NO; Charge for UA Resulting for Rev
[2022-03-25 17:32] LABS: Bilirubin Urine Neg (Negative); Blood Urine Neg (Negative); Glucose Urine UA 4+ (Normal); Ketones Urine 1+ (Negative); Leukocyte Esterase Urine Negative (Negative); Nitrate Urine Negative (Negative); Protein Urine Neg (Negative); Urine Appearance Clear (CLEAR); Urine Color Yellow (Yellow); Urobilinogen Urine Neg (Negative); pH Urine 5 (5-7)
[2022-03-25 17:51] LABS: Glucose Point of Care 557 mg/dL (70-110)
[2022-03-25 18:48] LABS: Glucose Point of Care 434 mg/dL (70-110)
[2022-03-25 19:41] LABS: Glucose Point of Care 427 mg/dL (70-110)
[2022-03-25] MEDS: insulin regular-human 100 units/1 mL 5 UNIT IVP (19:46)
--- NOTE | 2022-03-25 20:11 | PC.NURSE ---
Gloria Khalil MD notified.
[2022-03-25 20:13] LABS: Glucose Point of Care 405 mg/dL (70-110)
== END 2022-03-25 20:31 | disposition home or self-care (01) ==
PROVIDERS: Family Medicine; Emergency Provider Emergency Medicine; PCP Family Medicine
DX: E11.65 Type 2 diabetes mellitus with hyperglycemia (principal); Z79.4 Long term (current) use of insulin; Z79.82 Long term (current) use of aspirin; F17.210 Nicotine dependence, cigarettes, uncomplicated
CPT/HCPCS: 36416; 36600; 80051; 80053; 81003; 82009; 82330; 82805; 82962; 85025; 93005; 96361; 96374; 96376; 99285; J1815; J7030

== ENCOUNTER 2022-03-27 08:28 | Outpatient (CLI) | payer MEDICAID, SELFPAY ==
--- NOTE | 2022-03-27 08:45 | MR_ITS ---
WS: [id number] MRI BRAIN WITH HIGH-RESOLUTION IMAGING THROUGH THE INTERNAL AUDITORY CANALS WITHOUT AND WITH CONTRAST HISTORY: dizziness and unilateral hearing loss COMPARISON: None available. TECHNIQUE: Multiplanar, multisequence imaging is performed through the brain. Additional 3 mm imaging performed in multiple planes through the internal auditory canal. Postcontrast imaging with 14 ml's of MultiHance. No acute intracranial hemorrhage, midline shift, edema or mass effect. Mild T2 and FLAIR signal hyperintensities within the white matter. Typical for patient's age. No prio r infarct or significant volume loss. Ventricles and extra-axial spaces are normal. No inferior displacement of cerebellar tonsils. Clivus and pituitary gland are normal. Internal and external auditory canals: Unremarkable. Cranial nerves VII and VIII complexes: There is some very mild fullness along the RIGHT 7th and 8th c ranial nerve complex but there is no enhancement. No discrete solid mass is identified. No signal abn ormality along the trigeminal nerve or Meckel's cave. Cerebellopontine angles: Normal. Paranasal sinuses: Normal. Mastoid air cells: Normal. Calvarium and scalp: Normal. Visualized [place] and dural venous sinuses demonstrate no abnormality. MR/MR iac's wo/w con* [id number] IMPRESSION: 1. No mass or abnormal enhancement along the internal or external auditory can als. 2. Negative trigeminal nerve. 3. Mild small vessel ischemic disease. 4. No intracranial mass.
[2022-03-27] MEDS: gadobenate dimeglumine 20 mL vial IV (09:40)
== END 2022-03-27 08:29 | disposition home or self-care (01) ==
LOC: RAD 08:28
PROVIDERS: PCP Family Medicine; Visit Provider Otolaryngology
DX: H91.90 Unspecified hearing loss, unspecified ear (principal); R42 Dizziness and giddiness
CPT/HCPCS: 70553; A9577

== ENCOUNTER 2022-04-25 12:12 | Outpatient (CLI) | payer MEDICAID, SELFPAY | END 2022-04-25 12:13 | disposition home or self-care (01) | LOC: LAB 12:18 | PROVIDERS: PCP Family Medicine; Visit Provider Family Medicine | DX: A09 Infectious gastroenteritis and colitis, unspecified (principal); R39.9 Unspecified symptoms and signs involving the genitourinary system; R53.83 Other fatigue; R69 Illness, unspecified | CPT/HCPCS: 36415; 80053; 81000; 83690; 85025; 87086; 87400; 87426 ==

== ENCOUNTER 2022-04-28 10:40 | Outpatient (CLI) | payer MEDICAID, SELFPAY ==
[2022-04-28 11:07] LABS: Basophils # 0.1 10^3/uL (0.0-0.1); Basophils % 1.5 %; Eosinophils # 0.5 10^3/uL (0.0-0.8); Eosinophils % 6.6 %; Hematocrit 42.8 % (37.0-47.0); Hemoglobin 14.4 g/dL (11.5-15.3); Lymphocytes # 1.6 10^3/uL (0.8-4.8); Lymphocytes % 20.2 %; Mean Corpuscular HGB Conc 33.6 g/dL (30.0-36.0); Mean Corpuscular Hemoglobin 30.4 pg (28.0-34.0); Mean Corpuscular Volume 90.3 fl (81-99); Monocytes # 0.7 10^3/uL (0.2-0.9); Monocytes % 8.5 %; Neutrophils # 4.99 10^3/uL (1.8-7.7); Neutrophils % 62.9 %; Nucleated Red Blood Cells % 0 %; Platelet Count 197 10^3/cmm (130-400); Red Blood Count 4.74 10^6/uL (4.1-5.3); Red Cell Distribution Width 11.5 % (12.1-15.1); White Blood Count 7.9 10^3/uL (4.0-10.0)
== END 2022-04-28 10:41 | disposition home or self-care (01) ==
PROVIDERS: PCP Family Medicine; Visit Provider Family Medicine
DX: A09 Infectious gastroenteritis and colitis, unspecified (principal)
CPT/HCPCS: 36415; 85025

== ENCOUNTER 2022-05-26 12:10 | Outpatient (CLI) | payer MEDICAID, SELFPAY ==
[2022-05-26 13:17] LABS: Creatinine Urine, Random 89 mg/dL (28-217); Microalbum Creatinine Ratio Ur 11 mg/dL (0-20); Microalbumin Random Urine 1 ug/dL (0-20)
[2022-05-26 13:18] LABS: Alanine Aminotransferase 19 U/L (0-33); Albumin Level 4.2 g/dL (3.5-5.2); Alkaline Phosphatase 121 U/L (35-105); Anion Gap 11.1 (5-19); Aspartate Amino Transferase 18 U/L (0-32); Blood Urea Nitrogen 15 mg/dL (6-20); Calcium 9.5 mg/dL (8.5-10.5); Carbon Dioxide 29 mmol/L (22-29); Chloride 95 mmol/L (98-107); Chol HDL Ratio 3.06 mg/dL (0.0-4.40); Cholesterol 165 mg/dL (0-200); Globulin 3.2 g/dL (1.3-4.6); Glomerular Filtration Rate 103.8 mL/min (90-130); Glucose 277 mg/dL (65-115); HDL Cholesterol 54 mg/dL (60-100); LDL Cholesterol Calculated 91 mg/dL (50-129); LDL HDL Ratio 1.69 RATIO (0.00-3.22); Osmolality Calculated 283 mOsm/kg (285-295); Potassium 4.1 mmol/L (3.5-5.1); Sodium 131 mmol/L (136-145); Total Bilirubin 0.6 mg/dL (0.15-1.2); Total Protein 7.4 g/dL (6.6-8.7); Triglycerides 100 mg/dL (0-150)
[2022-05-26 13:31] LABS: Estmated Average Glucose 186; Hemoglobin A1C 8.1 % (4.0-6.0)
== END 2022-05-26 12:11 | disposition home or self-care (01) ==
LOC: LAB 12:14
PROVIDERS: PCP Family Medicine; Visit Provider Internal Medicine
DX: E78.2 Mixed hyperlipidemia (principal)
CPT/HCPCS: 36415; 80053; 80061; 82044; 83036

== ENCOUNTER 2022-09-01 15:12 | Outpatient (CLI) | payer MEDICAID, SELFPAY ==
[2022-09-01 17:29] LABS: Estmated Average Glucose 186; Hemoglobin A1C 8.1 % (4.0-6.0)
[2022-09-01 17:57] LABS: Alanine Aminotransferase 20 U/L (0-33); Albumin Level 3.7 g/dL (3.5-5.2); Alkaline Phosphatase 104 U/L (35-105); Anion Gap 11.2 (5-19); Aspartate Amino Transferase 14 U/L (0-32); Blood Urea Nitrogen 13 mg/dL (6-20); Calcium 9.1 mg/dL (8.5-10.5); Carbon Dioxide 30 mmol/L (22-29); Chloride 101 mmol/L (98-107); Chol HDL Ratio 3.04 mg/dL (0.0-4.40); Cholesterol 152 mg/dL (0-200); Globulin 2.9 g/dL (1.3-4.6); Glomerular Filtration Rate 103.8 mL/min (90-130); Glucose 364 mg/dL (65-115); HDL Cholesterol 50 mg/dL (60-100); LDL Cholesterol Calculated 74 mg/dL (50-129); LDL HDL Ratio 1.48 RATIO (0.00-3.22); Osmolality Calculated 301 mOsm/kg (285-295); Potassium 4.2 mmol/L (3.5-5.1); Sodium 138 mmol/L (136-145); Total Bilirubin 0.3 mg/dL (0.15-1.2); Total Protein 6.6 g/dL (6.6-8.7); Triglycerides 138 mg/dL (0-150)
[2022-09-01 18:00] LABS: Creatinine Urine, Random 70 mg/dL (28-217); Microalbum Creatinine Ratio Ur 14 mg/dL (0-20); Microalbumin Random Urine 1 ug/dL (0-20)
== END 2022-09-01 15:13 | disposition home or self-care (01) ==
LOC: LAB 15:14
PROVIDERS: PCP Family Medicine; Visit Provider Internal Medicine
DX: E78.2 Mixed hyperlipidemia (principal); E83.52 Hypercalcemia; E87.6 Hypokalemia; K31.84 Gastroparesis; K90.0 Celiac disease
CPT/HCPCS: 36415; 80053; 80061; 82044; 83036

== ENCOUNTER 2022-11-05 09:57 | Outpatient (CLI) | payer MEDICAID, SELFPAY ==
--- NOTE | 2022-11-05 10:01 | MM_ITS ---
WS: [id number] BILATERAL SCREENING DIGITAL TOMOSYNTHESIS MAMMOGRAM WITH CAD HISTORY: Z00.00 - Encounter for general adult medical examination ... COMPARISON: 10/11/2021 and 09/10/2017 Bilateral CC and MLO views with tomosynthesis and synthetic mammography submitted. Computer aided det ection analyzed. Breast composition: There are scattered areas of fibroglandular density. No suspicious masses, microc alcifications or architectural distortion. Numerous small calcifications within each breast. Addition al stable calcifications in the RIGHT axillary tail. IMPRESSION: MM/[place] [id number] BI-RADS: 2-Benign FOLLOW UP: 1 Year Follow-up
== END 2022-11-05 09:58 | disposition home or self-care (01) ==
LOC: MOBLMAM 09:59
PROVIDERS: PCP Family Medicine; Visit Provider Family Medicine
DX: Z12.31 Encounter for screening mammogram for malignant neoplasm of breast (principal); Z00.00 Encounter for general adult medical examination without abnormal findings
CPT/HCPCS: 77063; 77067

== ENCOUNTER → 2022-11-07 09:18 | Outpatient (BNVA) | payer MEDICAID, SELFPAY | PROVIDERS: PCP Family Medicine; Referring Provider Nurse Practitioner Family; Visit Provider Nurse Practitioner Family | DX: M19.012 Primary osteoarthritis, left shoulder (principal) | CPT/HCPCS: 73030 ==

== ENCOUNTER 2022-11-25 09:35 | Outpatient (CLI) | payer MEDICAID, SELFPAY ==
[2022-11-25 11:01] LABS: Creatinine Urine, Random 145 mg/dL (28-217); Microalbum Creatinine Ratio Ur 14 mg/dL (0-20); Microalbumin Random Urine 2 ug/dL (0-20)
[2022-11-25 11:03] LABS: Alanine Aminotransferase 30 U/L (0-33); Albumin Level 3.8 g/dL (3.5-5.2); Alkaline Phosphatase 125 U/L (35-105); Anion Gap 12.6 (5-19); Aspartate Amino Transferase 28 U/L (0-32); Blood Urea Nitrogen 15 mg/dL (6-20); Calcium 9.1 mg/dL (8.5-10.5); Carbon Dioxide 26 mmol/L (22-29); Chloride 103 mmol/L (98-107); Chol HDL Ratio 2.51 mg/dL (0.0-4.40); Cholesterol 123 mg/dL (0-200); Globulin 3.3 g/dL (1.3-4.6); Glomerular Filtration Rate 103.8 mL/min (90-130); Glucose 167 mg/dL (65-115); HDL Cholesterol 49 mg/dL (60-100); LDL Cholesterol Calculated 61 mg/dL (50-129); LDL HDL Ratio 1.24 RATIO (0.00-3.22); Osmolality Calculated 289 mOsm/kg (285-295); Potassium 4.6 mmol/L (3.5-5.1); Sodium 137 mmol/L (136-145); Total Bilirubin 0.6 mg/dL (0.15-1.2); Total Protein 7.1 g/dL (6.6-8.7); Triglycerides 63 mg/dL (0-150)
[2022-11-25 11:13] LABS: Estmated Average Glucose 163; Hemoglobin A1C 7.3 % (4.0-6.0)
== END 2022-11-25 09:36 | disposition home or self-care (01) ==
PROVIDERS: PCP Family Medicine; Visit Provider Internal Medicine
DX: E78.2 Mixed hyperlipidemia (principal); E10.69 Type 1 diabetes mellitus with other specified complication
CPT/HCPCS: 36415; 80053; 80061; 82044; 83036

== ENCOUNTER → 2023-01-05 09:48 | Outpatient (BNVA) | payer MEDICAID, SELFPAY | PROVIDERS: PCP Family Medicine; Visit Provider Specialist | DX: M75.01 Adhesive capsulitis of right shoulder; M19.011 Primary osteoarthritis, right shoulder; M19.012 Primary osteoarthritis, left shoulder | CPT/HCPCS: 73030 ==

== ENCOUNTER → 2023-02-17 16:15 | Outpatient (BNVA) | payer MEDICAID, SELFPAY | PROVIDERS: PCP Family Medicine; Visit Provider Nurse Practitioner Family | DX: Z20.2 Contact with and (suspected) exposure to infections with a predominantly sexual mode of transmission (principal); R21 Rash and other nonspecific skin eruption; R30.0 Dysuria | CPT/HCPCS: 87491; 87591; 87661 ==

== ENCOUNTER → 2023-02-25 09:33 | Outpatient (BNVA) | payer MEDICAID, SELFPAY | PROVIDERS: PCP Family Medicine; Visit Provider Specialist | DX: M25.511 Pain in right shoulder (principal); M12.811 Other specific arthropathies, not elsewhere classified, right shoulder | CPT/HCPCS: 73030 ==

== ENCOUNTER 2023-02-25 10:36 | Outpatient (CLI) | payer MEDICAID, SELFPAY | END 2023-02-25 10:37 | disposition home or self-care (01) | LOC: LAB 10:39 | PROVIDERS: PCP Family Medicine; Visit Provider Internal Medicine | DX: E78.2 Mixed hyperlipidemia (principal) | CPT/HCPCS: 36415; 80053; 80061; 82044; 83036 ==

== ENCOUNTER → 2023-03-23 14:56 | Outpatient (BNVA) | payer MEDICAID, SELFPAY | PROVIDERS: PCP Family Medicine; Visit Provider Nurse Practitioner Family | DX: R53.83 Other fatigue (principal) | CPT/HCPCS: 85025 ==

== ENCOUNTER 2023-03-26 10:21 | Outpatient (CLI) | payer MEDICAID, SELFPAY ==
[2023-03-26 10:46] LABS: Basophils # 0.1 10^3/uL (0.0-0.1); Basophils % 1.2 %; Eosinophils # 0.6 10^3/uL (0.0-0.8); Eosinophils % 7.6 %; Hematocrit 43.1 % (36-47); Lymphocytes # 2.3 10^3/uL (0.8-4.8); Mean Corpuscular HGB Conc 34.1 g/dL (30-55); Mean Corpuscular Hemoglobin 30.4 pg (27-33); Mean Corpuscular Volume 89.2 fl (85-98); Mean Platelet Volume 9.9 fL (7.4-10.4); Monocytes # 0.6 10^3/uL (0.2-0.9); Monocytes % 7.6 %; Neutrophils # 3.72 10^3/uL (1.8-7.7); Neutrophils % 51.5 %; Nucleated Red Blood Cells % 0 %; Platelet Count 225 10^3/cmm (157-399); Red Blood Count 4.83 10^6/uL (3.85-5.65); Red Cell Distribution Width 11.8 % (12.1-15.1); White Blood Count 7.23 10^3/uL (3.29-11.43)
[2023-03-26 11:12] LABS: Alanine Aminotransferase 26 U/L (0-33); Alkaline Phosphatase 116 U/L (35-105); Anion Gap 14.7 (5-19); Aspartate Amino Transferase 29 U/L (0-32); Blood Urea Nitrogen 8 mg/dL (6-20); Calcium 9.3 mg/dL (8.5-10.5); Carbon Dioxide 29 mmol/L (22-29); Chloride 102 mmol/L (98-107); Globulin 3.4 g/dL (1.3-4.6); Glomerular Filtration Rate 103.8 mL/min (90-130); Glucose 153 mg/dL (65-115); Osmolality Calculated 293 mOsm/kg (285-295); Potassium 4.7 mmol/L (3.5-5.1); Sodium 141 mmol/L (136-145); Thyroid Stimulating Hormone 4.49 uIU/mL (0.27-4.20); Total Bilirubin 0.4 mg/dL (0.15-1.2); Total Protein 7.4 g/dL (6.6-8.7)
== END 2023-03-26 10:22 | disposition home or self-care (01) ==
LOC: LAB 10:24
PROVIDERS: PCP Family Medicine; Visit Provider Nurse Practitioner Family
DX: R53.83 Other fatigue (principal); E07.9 Disorder of thyroid, unspecified
CPT/HCPCS: 36415; 80053; 84443; 85025

== ENCOUNTER 2023-04-12 14:31 | Emergency (ER) | payer MEDICAID, SELFPAY ==
[2023-04-12 14:35] VITALS: BP 111/65; PULSE 71; RESP 16; TEMP 36.3; O2SAT 96
--- NOTE | 2023-04-12 14:40 | W.ED.DIZZY ---
HPI - Dizziness General: Chief Complaint: Dizziness Stated Complaint: low bp Time Seen by Provider: 04/12/23 14:39 History of Present Illness: HPI Narrative: 58-year-old female comes in today for complaints of dizziness. Patient reports her symptoms for about 1 week. Patient also reports feeling tired and cold all the time. Patient woke up this morning and had checked her blood pressure and noted it was 84/50. Patient denies any falls or injuries, no headache, no change in appetite, no blood in stool, no urinary difficulty, no chest pain, no shortness of breath. Patient has chronic history of diabetes mellitus, high cholesterol, GERD. Patient's blood glucose at this time was 150, and this morning was 193. Associated symptoms: Denies headache(s) Review of Systems General: Reports: 10 or more systems reviewed and unremarkable except in HPI and below Neuro: Reports: dizziness; Denies: headache(s) REPLACED BY [facility] PFS: Medical History (Updated 04/12/23 @ 16:07 by FIDEL Garces) Diabetic gastroparalysis Scalp mass Celiac disease Diabetes Gastroparesis Constipation [place] spotted fever 2016 DKA (diabetic ketoacidosis) Surgical History Hx of colonoscopy History of laparoscopic appendectomy History of tonsillectomy History of 3 sections Family History Sister Clotting disorder Other Cancer Diabetes Hypertension Denies family history of Bleeding disorder Thyroid disease Stroke Social History Smoking and tobacco/nicotine status: current every day tobacco/nicotine user Physical Exam Const: COMMON NORMALS: alert HENMT: COMMON NORMALS: normocephalic HEAD & SCALP: normocephalic Neck/C-Spine: COMMON NORMALS: full ROM Resp: COMMON NORMALS: normal respiratory effort and clear to auscultation bilaterally AUSCULTATION: clear to auscultation bilaterally Cardio: COMMON NORMALS: regular rate and regular rhythm RATE: regular rate RHYTHM: regular rhythm GI: COMMON NORMALS: Soft to palpation and non-tender PALPATION: Yes Soft to palpation : COMMON NORMALS: Yes no CVA tenderness BLADDER/KIDNEY EXAM: Yes no CVA tenderness Back/Pelvis: COMMON NORMALS: no CVA tenderness and thoracic and lumbar spine normal to inspection Extremity: COMMON NORMALS: normal to inspection and no pedal edema Neuro: SENSORIUM/ORIENTATION: Yes alert Skin: COMMON NORMALS: turgor normal GENERAL SKIN EXAM: turgor normal Course Vital Signs: Vital signs: Vital Signs Temperature 97.3 F L 04/12/23 14:35 Pulse Rate 60 04/12/23 15:08 Respiratory Rate 16 04/12/23 14:35 Blood Pressure 97/57 04/12/23 15:08 Pulse Oximetry 96 04/12/23 14:35 Oxygen Delivery Me thod Room Air 04/12/23 14:35 MDM - Dizziness Medical Decision Making Patient comes in today for complaints of dizziness. Patient reports increased dizziness when she looks up which caused her to have to leave work today. Patient appears nontoxic. Patient has diabetes mellitus and her blood glucose was 190 at the time of this dizzy spell and a recorded blood pressure of 84/50. Blood pressures recovered at this time is now 111/65. Respirations are even lungs are clear to auscultation. Heart rates regular in the 70s. Abdomen soft nontender. Skin is warm and dry. Normal skin turgor. Differential diagnosis includes not limited to electrolyte imbalance, dehydration, ACS, adverse drug effect, stroke syndrome. CT of the head was normal. EKG showed a sinus bradycardia with rate 58 bpm. CBC was normal. CMP did have some mild hyponatremia at 132, blood glucose was 140, creatinine was 0.9. Orthostatic pressures were normal. Believe patient probably has some adverse drug effect probably secondary to her lisinopril use. Will go ahead and have her hold it for the next 1 to 2 weeks and follow-up with primary care for recheck. Patient will monitor blood pressure daily and restart blood pressure medicine if it starts going above 130s routinely. Patient stated understanding and agreed to plan. Lab Data 04/12/23 15:21 04/12/23 15:[address] 04/12/23 14:47 IMPRESSION: No intracranial bleed or large territorial infarct. Laboratory Results WBC 9.78 10^3/uL (3.29-11.43) 04/12/23 15:21 RBC 5.02 10^6/uL (3.85-5.65) 04/12/23 15:21 Hgb 15.40 g/dL (11.27-16.99) 04/12/23 15:21 Hct 45.0 % (36-47) 04/12/23 15:21 MCV 89.6 fl (85-98) 04/12/23 15:21 MCH 30.7 pg (27-33) 04/12/23 15:21 MCHC 34.2 g/dL (30-55) 04/12/23 15:21 RDW 11.9 % (12.1-15.1) L 04/12/23 15:21 Plt Count 239 10^3/cmm (157-399) 04/12/23 15:21 MPV 9.5 fL (7.4-10.4) 04/12/23 15:21 Neut % (Auto) 57.8 % 04/12/23 15:21 Lymph % (Auto) 29.7 % 04/12/23 15:21 Beadle % (Auto) 6.0 % 04/12/23 15:21 Eos % (Auto) 5.2 % 04/12/23 15:21 Baso % (Auto) 1.0 % 04/12/23 15:21 Neut # (Auto) 5.65 10^3/uL (1.8-7.7) 04/12/23 15:21 Lymph # (Auto) 2.9 10^3/uL (0.8-4.8) 04/12/23 15:21 Beadle # (Auto) 0.6 10^3/uL (0.2-0.9) 04/12/23 15:21 Eos # (Auto) 0.5 10^3/uL (0.0-0.8) 04/12/23 15:21 Baso # (Auto) 0.1 10^3/uL (0.0-0.1) 04/12/23 15:21 Nucleated RBC % (auto) 0 % 04/12/23 15:21 Nucleated RBCs # 0.0 /100WBC 04/12/23 15:21 Sodium 132 mmol/L (136-145) L 04/12/23 15:21 Potassium 4.1 mmol/L (3.5-5.1) 04/12/23 15:21 Chloride 95 mmol/L (98-107) L 04/12/23 15:21 Carbon Dioxide 24 mmol/L (22-29) 04/12/23 15:21 Anion Gap 17.1 (5-19) 04/12/23 15:21 BUN 15 mg/dL (6-20) 04/12/23 15:21 Creatinine 0.9 mg/dL (0.5-0.9) 04/12/23 15:21 GFR Calculation 64.8 mL/min (90-130) L 04/12/23 15:21 Glucose 140 mg/dL (65-115) H 04/12/23 15:21 Calculated Osmolality 277 mOsm/kg (285-295) L 04/12/23 15:21 Calcium 9.9 mg/dL (8.5-10.5) 04/12/23 15:21 Total Bilirubin 0.6 mg/dL (0.15-1.2) 04/12/23 15:21 AST 24 U/L (0-32) 04/12/23 15:21 ALT 29 U/L (0-33) 04/12/23 15:21 Alkaline Phosphatase 134 U/L (35-105) H 04/12/23 15:21 Total Protein 8.8 g/dL (6.6-8.7) H 04/12/23 15:21 Albumin 4.4 g/dL (3.5-5.2) 04/12/23 15:21 Globulin 4.4 g/dL (1.3-4.6) 04/12/23 15:21 Urine Color Yellow (Yellow) 04/12/23 15:30 Urine Appearance Hazy (CLEAR) A 04/12/23 15:30 Urine pH 7 (5-7) 04/12/23 15:30 Ur Specific [place] 1.010 (1.005-1.030) 04/12/23 15:30 Urine Protein Neg (Negative) 04/12/23 15:30 Urine Glucose (UA) 2+ (Normal) H 04/12/23 15:30 Urine Ketones Negative (Negative) 04/12/23 15:30 Urine Blood Neg (Negative) 04/12/23 15:30 Urine Nitrate Negative (Negative) 04/12/23 15:30 Urine Bilirubin Neg (Negative) 04/12/23 15:30 Urine Urobilinogen Norm mg/dL (Negative) 04/12/23 15:30 Ur Leukocyte Esterase 1+ (Negative) H 04/12/23 15:30 Urine RBC None /hpf (0-2) 04/12/23 15:30 Urine WBC 10-15 /hpf (0-5) H 04/12/23 15:30 Ur Squamous Epith Cells 15-25 /hpf (0-5) H 04/12/23 15:30 Amorphous Sediment Not Reportable 04/12/23 15:30 Urine Bacteria 2+ /hpf (NONE) H 04/12/23 15:30 All radiology interpretation(s) finalized by discharge Discharge Plan Discharge Patient Disposition: Home Clinical Impression: Diabetes mellitus type 1.5 Hypotension Qualifiers: Hypotension type: unspecified hypotension type Qualified Code(s): I95.9 - Hypotension, unspecified Condition: Stable Prescriptions: Held lisinopril 2.5 mg tablet 2.5 mg PO DAILY 90 Days Qty: 90 3RF Hold Instructions: Resume on 04/20/23. Follow-up with primary care in one to two weeks for recheck of blood pressure No Action atorvastatin 20 mg tablet 20 mg PO DAILY 90 Days Qty: 90 3RF albuterol sulfate [ProAir HFA] 90 mcg/actuation HFA aerosol inhaler 2 puff inhalation QID PRN (Reason: shortness of breath or wheezing) 30 Days Qty: 18 5RF pantoprazole 40 mg tablet,delayed release (DR/EC) 40 mg PO DAILY 30 Days Qty: 30 5RF ondansetron 4 mg tablet,disintegrating 4 mg PO TID 30 Days Qty: 90 5RF promethazine 25 mg tablet 25 mg PO BID PRN (Reason: nausea and vomiting) Qty: 30 1RF (DME) Dexcom G6 Sensor Device See Rx Instructions .ROUTE .COMPLEX Qty: 9 1RF Dose Instruction: CHANGE EVERY 10 DAYS Rx Instructions: CHANGE EVERY 10 DAYS (DME) Omnipod 5 G6 Pods (Gen 5) Cartridge See Rx Instructions .ROUTE .COMPLEX Qty: 36 0RF Dose Instruction: USE DIRECTED CHANGE EVERY 3 DAYS Rx Instructions: USE DIRECTED CHANGE EVERY 3 DAYS insulin aspart U-100 [Novolog FlexPen U-100 Insulin] 100 unit/mL (3 mL) insulin pen See Rx Instructions .ROUTE .COMPLEX Qty: 30 1RF Dose Instruction: INJECT 20 UNITS SUBCUTANEOUSLY AFTER BREAKFAST, 20 UNITS AFTER LUNCH, AND 40 UNITS AFTER SUPPER Rx Instructions: INJECT 20 UNITS SUBCUTANEOUSLY AFTER BREAKFAST, 20 UNITS AFTER LUNCH, AND 40 UNITS AFTER SUPPER aspirin [Adult Aspirin Regimen] 81 mg tablet,delayed release (DR/EC) 81 mg PO DAILY Hold Instructions: Resume on 11/23/21. Glucagon (HCl) Emergency Kit 1 mg recon soln 1 mg SUBCUT Q20M PRN (Reason: hypoglycemia) Qty: 1 3RF Rx Instructions: until target blood sugar attained triamcinolone acetonide 0.1 % cream 1 applic topical BID Qty: 30 0RF Rx Instructions: apply to arm (DME) Dexcom G6 Farm Equipment Engineer Misc See Rx Instructions .Route Qty: 1 0RF Rx Instructions: Check BS 4 - 6 times a day. (DME) Omnipod 5 G6 Intro Kit (Gen 5) Cartridge See Rx Instructions .Route Qty: 1 0RF Rx Instructions: As directed (DME) diabetic shoes with 3 inserts See Rx Instructions .Route .MEDSUPPLY Qty: 1 0RF Rx Instructions: As directed to [facility] (DME) Dexcom G6 Transmitter Device See Rx Instructions .Route Qty: 3 3RF Rx Instructions: Change every 90 days. magnesium 250 mg Tablet 250 mg PO QPM Discharge Orders: Discharge ED (Routine); Ordered 04/12/23 Ordered By: Osito Reyes Referrals: Carla Blevins MD [Primary Care Provider] - Discharge Diet: Usual diet Discharge Activity: Increase activity as tolerated Patient Instructions: Hypotension (ED) Activity Restrictions/Additional Instructions: Drink fluids to satiate thirst. Hold lisinopril for the next 1 to 2 weeks. Follow-up with primary care at that time for recheck of blood pressure. Return to ER for worsening symptoms such as severe headache, nausea vomiting, blood in vomit or stool, fever greater than 100.4, or severe shortness of breath or chest pain. Stand Alone Forms: Work/School Release Coding Level of Care Code ED Farm Equipment Engineer for Mari Sandoval
--- NOTE | 2023-04-12 14:47 | CTR_ITS ---
PROCEDURE INFORMATION: Exam: CT Head Without Contrast Exam date and time: 04/12/2023 3:12 PM Age: 58 years old Clinical indication: Dizziness TECHNIQUE: Imaging protocol: Computed tomography of the head without contrast. Radiation optimization: All CT scans at this facility use at least one of these dose optimization techniques: automated exposure control; mA and/or kV adjustment per patient size (includes targeted exams where dose is matched to clinical indication); or iterative reconstruction. COMPARISON: MR olu's wo/w con* [id number] 03/27/2022 8:57 AM RADIATION DOSE METRICS: Total DLP (mGy-cm): 985.88 FINDINGS: Brain: Normal. No hemorrhage. Unremarkable white matter. No mass effect. Cerebral ventricles: No ventriculomegaly. Paranasal sinuses: There are frothy secretions in the left sphenoid sinus. Mastoid air cells: Visualized mastoid air cells are well aerated. Orbital cavities: Post bilateral cataract surgery. Bones/joints: Unremarkable. No acute fracture. Soft tissues: Unremarkable. CT/CT head wo con* [id number] IMPRESSION: No intracranial bleed or large territorial infarct.
--- NOTE | 2023-04-12 14:47 | ECG_ITS ---
[facility] Test Date: 2023-04-12 Pat Name: Katy Hagen Department: Room: Gender: Female Tow Operator: : 1965 Requested By: Osito Mendoza Order Number: [id number] Keri MD: Pat Gee M.D. Measurements Intervals [place] Rate: 58 P: 54 AR: 133 QRS: 21 QRSD: 83 T: 61 QT: 418 QTc: 413 Interpretive Statements SINUS BRADYCARDIA LOW QRS VOLTAGE IN PRECORDIAL LEADS [QRS DEFLECTION < 1.0 mV IN CHEST LEADS] Compared to ECG 03/25/2022 16:18:18 Sinus rhythm no longer present Electronically Signed On 04-12-2023 21:00:04 YOUTH CAREER SPECIALIST by Pat Gee M.D. [email or web address], [id number]
[2023-04-12 15:08] VITALS: BP 101/54; BP 93/60; BP 97/57; PULSE 60; PULSE 67; PULSE 69
[2023-04-12 15:27] LABS: Basophils # 0.1 10^3/uL (0.0-0.1); Eosinophils # 0.5 10^3/uL (0.0-0.8); Eosinophils % 5.2 %; Lymphocytes # 2.9 10^3/uL (0.8-4.8); Lymphocytes % 29.7 %; Mean Corpuscular HGB Conc 34.2 g/dL (30-55); Mean Corpuscular Hemoglobin 30.7 pg (27-33); Mean Corpuscular Volume 89.6 fl (85-98); Mean Platelet Volume 9.5 fL (7.4-10.4); Monocytes # 0.6 10^3/uL (0.2-0.9); Neutrophils # 5.65 10^3/uL (1.8-7.7); Neutrophils % 57.8 %; Nucleated Red Blood Cells % 0 %; Platelet Count 239 10^3/cmm (157-399); Red Blood Count 5.02 10^6/uL (3.85-5.65); Red Cell Distribution Width 11.9 % (12.1-15.1); White Blood Count 9.78 10^3/uL (3.29-11.43)
[2023-04-12 15:49] LABS: Alanine Aminotransferase 29 U/L (0-33); Albumin Level 4.4 g/dL (3.5-5.2); Alkaline Phosphatase 134 U/L (35-105); Anion Gap 17.1 (5-19); Aspartate Amino Transferase 24 U/L (0-32); Blood Urea Nitrogen 15 mg/dL (6-20); Calcium 9.9 mg/dL (8.5-10.5); Carbon Dioxide 24 mmol/L (22-29); Chloride 95 mmol/L (98-107); Globulin 4.4 g/dL (1.3-4.6); Glomerular Filtration Rate 64.8 mL/min (90-130); Glucose 140 mg/dL (65-115); Osmolality Calculated 277 mOsm/kg (285-295); Potassium 4.1 mmol/L (3.5-5.1); Sodium 132 mmol/L (136-145); Total Bilirubin 0.6 mg/dL (0.15-1.2); Total Protein 8.8 g/dL (6.6-8.7)
[2023-04-12 15:51] LABS: Add Urine Microscopic? YES; Bilirubin Urine Neg (Negative); Blood Urine Neg (Negative); Glucose Urine UA 2+ (Normal); Ketones Urine Negative (Negative); Leukocyte Esterase Urine 1+ (Negative); Nitrate Urine Negative (Negative); Protein Urine Neg (Negative); Urine Appearance Hazy (CLEAR); Urine Color Yellow (Yellow); Urobilinogen Urine Norm (Negative); pH Urine 7 (5-7)
[2023-04-12 15:54] LABS: Add Urine Culture? No; Bacteria Urine 2+ /hpf; Squamous Epithelial Cell Urine 15-25 /hpf (0-5)
== END 2023-04-12 16:19 | disposition home or self-care (01) ==
PROVIDERS: Emergency Provider Nurse Practitioner Family; PCP Family Medicine
DX: I95.9 Hypotension, unspecified (principal); E13.9 Other specified diabetes mellitus without complications; Z79.82 Long term (current) use of aspirin; Z79.4 Long term (current) use of insulin; Z72.0 Tobacco use
CPT/HCPCS: 70450; 80053; 81001; 85025; 93005; 99284

== ENCOUNTER 2023-04-13 15:12 | Emergency (ER) | payer MEDICAID, SELFPAY ==
[2023-04-13 15:17] VITALS: BP 107/62; PULSE 68; RESP 19; TEMP 36.7; O2SAT 97; BMI 25.7
--- NOTE | 2023-04-13 15:26 | CTR_ITS ---
PROCEDURE INFORMATION: Exam: CT Head Without Contrast Exam date and time: 04/13/2023 3:40 PM Age: 58 years old Clinical indication: Dizziness and syncope and collapse TECHNIQUE: Imaging protocol: Computed tomography of the head without contrast. Radiation optimization: All CT scans at this facility use at least one of these dose optimization techniques: automated exposure control; mA and/or kV adjustment per patient size (includes targeted exams where dose is matched to clinical indication); or iterative reconstruction. COMPARISON: CT head wo con* [id number] 04/12/2023 3:12 PM RADIATION DOSE METRICS: Total DLP (mGy-cm): 1055 FINDINGS: Brain: No midline shift. Ventricles, cisterns, and sulci are normal. No mass, acute infarct, hemorrhage, or extraaxial fluid collection. Cerebral ventricles: No ventriculomegaly. Paranasal sinuses: Visualized sinuses are unremarkable. No fluid levels. Mastoid air cells: Visualized mastoid air cells are well aerated. Bones/joints: Unremarkable. No acute fracture. Soft tissues: Unremarkable. CT/CT head wo con* [id number] IMPRESSION: No acute intracranial abnormality.
--- NOTE | 2023-04-13 15:26 | XR_ITS ---
WS: [id number] Exam: XR chest 1V portable [id number] Date/Time of Exam: 04/13/2023 4:04 PM Reason For Exam: syncope Comparison 09/19/2015. Findings: The lungs are clear and fully expanded. Costophrenic angles are sharp. No infiltrates. Bronchovascula r relief appears normal. Cardiac silhouette is unremarkable. Bony elements are intact. IMPRESSION: Unremarkable chest radiograph.
--- NOTE | 2023-04-13 15:27 | ECG_ITS ---
[facility] Test Date: 2023-04-13 Pat Name: Katy Hagen Department: Room: Gender: Female Quitline Counselor: : 1965 Requested By: Yakov Morrison Order Number: [id number] Keri MD: Pat Gee M.D. Measurements Intervals [place] Rate: 63 P: 65 OR: 175 QRS: 51 QRSD: 99 T: 76 QT: 406 QTc: 418 Interpretive Statements SINUS RHYTHM LOW QRS VOLTAGE IN PRECORDIAL LEADS [QRS DEFLECTION < 1.0 mV IN CHEST LEADS] Compared to ECG 04/12/2023 16:01:31 Sinus bradycardia no longer present Electronically Signed On 04-14-2023 0:38:52 EXTRACTOR TENDER RAW STOCK by Pat Gee M.D. [id number]
--- NOTE | 2023-04-13 15:36 | ED_ITS ---
HPI - Syncope 2 General: Chief Complaint: Syncope Stated Complaint: dizzy Time Seen by Provider: 04/13/23 15:23 Source: patient Mode of arrival: ambulatory Limitations: no limitations History of Present Illness: 58-year-old female states that she was a t work when outside felt lightheaded and had a syncopal event. She states that she believes she hit her head she has some pain to posterior scalp she denies any headache or chest pain before the event she denies any chest pain currently she states she has had felt some lightheadedness over the last few days she was seen here for same 2 days ago. Associated symptoms: Reports lightheadedness; Deny abdominal pain, chest pain, fever(s), headache(s) or nausea Review of Systems 2 Const: Denies: fever(s) or chills ENMT: Denies: throat pain or dental pain Card: Reports: lightheadedness and syncope; Denies: chest pain Resp: Denies: dyspnea GI: Denies: abdominal pain, nausea, vomiting or diarrhea Musc: Denies: neck pain or back pain Skin/Breast: Denies: rash Neuro: Denies: headache(s) PFSH ED 2 PFSH: Medical History Diabetic gastroparalysis Scalp mass Celiac disease Diabetes Gastroparesis Constipation [place] spotted fever 2016 DKA (diabetic ketoacidosis) Surgical History Hx of colonoscopy History of laparoscopic appendectomy History of tonsillectomy History of 3 sections Family History Sister Clotting disorder Other Cancer Diabetes Hypertension Denies family history of Bleeding disorder Thyroid disease Stroke Social History Smoking and tobacco/nicotine status: current every day tobacco/nicotine user Physical Exam 2 Const: COMMON NORMALS: patient oriented x3 HENMT: COMMON NORMALS: normocephalic and atraumatic HEAD & SCALP: n ormocephalic and atraumatic Eye: COMMON NORMALS: Equal, round and reactive pupils present and EOMs intact bilaterally PUPIL: Yes Equal, round and reactive pupils present Neck/C-Spine: COMMON NORMALS: full ROM and supple Chest: COMMONS NORMALS: normal inspection of the chest Resp: COMMON NORMALS: normal respiratory effort Cardio: COMMON NORMALS: regular rate, regular rhythm and No murmurs present (Cardio) RATE: regular rate RHYTHM: regular rhythm GI: COMMON NORMALS: Soft to palpation, non-tender and no masses PALPATION: Yes Soft to palpation Extremity: COMMON NORMALS: normal to inspection and full ROM Neuro: COMMON NORMALS: patient oriented x3, moves all extremities and no focal motor deficits Psych: COMMON NORMALS: mental status grossly normal, Normal thought process present and cooperative THOUGHT PROCESS: Normal thought process present Skin: COMMON NORMALS: no rashes or lesions noted and no wounds GENERAL SKIN EXAM: no rashes or lesions noted Course 2 Vital Signs: Vital signs: Vital Signs Temperature 98.1 F 04/13/23 15:17 Pulse Rate 58 L 04/13/23 16:09 Respiratory Rate 19 H 04/13/23 15:17 Blood Pressure 111/64 04/13/23 16:09 Pulse Oximetry 97 04/13/23 15:17 Oxygen Delivery Me thod Room Air 04/13/23 15:17 MDM - Syncope Medical Decision Making Patient presents here with syncopal event is likely orthostatic in nature did give her IV fluids here blood work head CT are all normal she can be having some postural hypotension she is follow-up with her PCP she is return if worsening she understands agrees to plan. Medical Records I reviewed the patient's medical records. Lab Data I reviewed the patient's lab results. 04/13/23 15:36 04/13/23 15:[address] 04/13/23 15:26 IMPRESSION: No acute intracranial abnormality. Laboratory Results WBC 7.49 10^3/uL (3.29-11.43) 04/13/23 15:36 RBC 4.33 10^6/uL (3.85-5.65) 04/13/23 15:36 Hgb 13.20 g/dL (11.27-16.99) 04/13/23 15:36 Hct 38.9 % (36-47) 04/13/23 15:36 MCV 89.8 fl (85-98) 04/13/23 15:36 MCH 30.5 pg (27-33) 04/13/23 15:36 MCHC 33.9 g/dL (30-55) 04/13/23 15:36 RDW 11.9 % (12.1-15.1) L 04/13/23 15:36 Plt Count 210 10^3/cmm (157-399) 04/13/23 15:36 MPV 9.7 fL (7.4-10.4) 04/13/23 15:36 Neut % (Auto) 62.5 % 04/13/23 15:36 Lymph % (Auto) 22.8 % 04/13/23 15:36 [place] % (Auto) 8.7 % 04/13/23 15:36 Eos % (Auto) 4.4 % 04/13/23 15:36 Baso % (Auto) 1.3 % 04/13/23 15:36 Neut # (Auto) 4.68 10^3/uL (1.8-7.7) 04/13/23 15:36 Lymph # (Auto) 1.7 10^3/uL (0.8-4.8) 04/13/23 15:36 [place] # (Auto) 0.7 10^3/uL (0.2-0.9) 04/13/23 15:36 Eos # (Auto) 0.3 10^3/uL (0.0-0.8) 04/13/23 15:36 Baso # (Auto) 0.1 10^3/uL (0.0-0.1) 04/13/23 15:36 Nucleated RBC % (auto) 0 % 04/13/23 15:36 Nucleated RBCs # 0.0 /100WBC 04/13/23 15:36 Sodium 134 mmol/L (136-145) L 04/13/23 15:36 Potassium 4.3 mmol/L (3.5-5.1) 04/13/23 15:36 Chloride 97 mmol/L (98-107) L 04/13/23 15:36 Carbon Dioxide 28 mmol/L (22-29) 04/13/23 15:36 Anion Gap 13.3 (5-19) 04/13/23 15:36 BUN 19 mg/dL (6-20) 04/13/23 15:36 Creatinine 1.0 mg/dL (0.5-0.9) H 04/13/23 15:36 GFR Calculation 57.4 mL/min (90-130) L 04/13/23 15:36 Glucose 127 mg/dL (65-115) H 04/13/23 15:36 Calculated Osmolality 282 mOsm/kg (285-295) L 04/13/23 15:36 Calcium 9.3 mg/dL (8.5-10.5) 04/13/23 15:36 Total Bilirubin 0.5 mg/dL (0.15-1.2) 04/13/23 15:36 AST 24 U/L (0-32) 04/13/23 15:36 ALT 26 U/L (0-33) 04/13/23 15:36 Alkaline Phosphatase 110 U/L (35-105) H 04/13/23 15:36 Total Protein 7.0 g/dL (6.6-8.7) 04/13/23 15:36 Albumin 3.7 g/dL (3.5-5.2) 04/13/23 15:36 Globulin 3.3 g/dL (1.3-4.6) 04/13/23 15:36 All radiology interpretation(s) finalized by discharge EKG Data EKG 1: I personally reviewed and interpreted this EKG as follows: EKG interpretation date: 04/13/23 EKG interpretation time: 15:36 Interpretation: nsr hr [address] or t wave abnormalities qrs 99 qtc 414 Discharge Plan Discharge Patient Disposition: Home Clinical Impression: Syncope, Orthostatic hypotension Condition: Stable Prescriptions: No Action atorvastatin 20 mg tablet 20 mg PO DAILY 90 Days Qty: 90 3RF albuterol sulfate [ProAir HFA] 90 mcg/actuation HFA aerosol inhaler 2 puff inhalation QID PRN (Reason: shortness of breath or wheezing) 30 Days Qty: 18 5RF pantoprazole 40 mg tablet,delayed release (DR/EC) 40 mg PO DAILY 30 Days Qty: 30 5RF lisinopril 2.5 mg tablet 2.5 mg PO DAILY 90 Days Qty: 90 3RF Hold Instructions: Resume on 04/20/23. Follow-up with primary care in one to two weeks for recheck of blood pressure ondansetron 4 mg tablet,disintegrating 4 mg PO TID 30 Days Qty: 90 5RF promethazine 25 mg tablet 25 mg PO BID PRN (Reason: nausea and vomiting) Qty: 30 1RF (DME) Dexcom G6 Sensor Device See Rx Instructions .ROUTE .COMPLEX Qty: 9 1RF Dose Instruction: CHANGE EVERY 10 DAYS Rx Instructions: CHANGE EVERY 10 DAYS (DME) Omnipod 5 G6 Pods (Gen 5) Cartridge See Rx Instructions .ROUTE .COMPLEX Qty: 36 0RF Dose Instruction: USE DIRECTED CHANGE EVERY 3 DAYS Rx Instructions: USE DIRECTED CHANGE EVERY 3 DAYS insulin aspart U-100 [Novolog FlexPen U-100 Insulin] 100 unit/mL (3 mL) insulin pen See Rx Instructions .ROUTE .COMPLEX Qty: 30 1RF Dose Instruction: INJECT 20 UNITS SUBCUTANEOUSLY AFTER BREAKFAST, 20 UNITS AFTER LUNCH, AND 40 UNITS AFTER SUPPER Rx Instructions: INJECT 20 UNITS SUBCUTANEOUSLY AFTER BREAKFAST, 20 UNITS AFTER LUNCH, AND 40 UNITS AFTER SUPPER aspirin [Adult Aspirin Regimen] 81 mg tablet,delayed release (DR/EC) 81 mg PO DAILY Hold Instructions: Resume on 11/23/21. Glucagon (HCl) Emergency Kit 1 mg recon soln 1 mg SUBCUT Q20M PRN (Reason: hypoglycemia) Qty: 1 3RF Rx Instructions: until target blood sugar attained triamcinolone acetonide 0.1 % cream 1 applic topical BID Qty: 30 0RF Rx Instructions: apply to arm (DME) Dexcom G6 Finance And Administration Manager Misc See Rx Instructions .Route Qty: 1 0RF Rx Instructions: Check BS 4 - 6 times a day. (DME) Omnipod 5 G6 Intro Kit (Gen 5) Cartridge See Rx Instructions .Route Qty: 1 0RF Rx Instructions: As directed ([facility]) diabetic shoes with 3 inserts See Rx Instructions .Route .MEDSUPPLY Qty: 1 0RF Rx Instructions: As directed to [facility] ([facility]) Dexcom G6 Transmitter Device See Rx Instructions .Route Qty: 3 3RF Rx Instructions: Change every 90 days. magnesium 250 mg Tablet 250 mg PO QPM Colace 100 mg Capsule 200 mg PO QAM Dulcolax (bisacodyl) 5 mg Tablet,Delayed Release (Dr/Ec) 5 mg PO QPM Discharge Orders: Discharge ED (Routine); Ordered 04/13/23 Ordered By: Yakov Morrison Referrals: Carla Blevins MD [Primary Care Provider] - 4-7 days Discharge Diet: Advance as tolerated Discharge Activity: Resume usual activity Patient Instructions: Syncope (ED) Coding Level of Care Code ED Slunk Skinner for Mari Sandoval
[2023-04-13 15:43] LABS: Basophils # 0.1 10^3/uL (0.0-0.1); Basophils % 1.3 %; Eosinophils # 0.3 10^3/uL (0.0-0.8); Eosinophils % 4.4 %; Hematocrit 38.9 % (36-47); Lymphocytes # 1.7 10^3/uL (0.8-4.8); Lymphocytes % 22.8 %; Mean Corpuscular HGB Conc 33.9 g/dL (30-55); Mean Corpuscular Hemoglobin 30.5 pg (27-33); Mean Corpuscular Volume 89.8 fl (85-98); Mean Platelet Volume 9.7 fL (7.4-10.4); Monocytes # 0.7 10^3/uL (0.2-0.9); Monocytes % 8.7 %; Neutrophils # 4.68 10^3/uL (1.8-7.7); Neutrophils % 62.5 %; Nucleated Red Blood Cells % 0 %; Platelet Count 210 10^3/cmm (157-399); Red Blood Count 4.33 10^6/uL (3.85-5.65); Red Cell Distribution Width 11.9 % (12.1-15.1); White Blood Count 7.49 10^3/uL (3.29-11.43)
[2023-04-13] MEDS: sodium chloride 0.9% 1,000 ML 999 ML IV (16:00)
[2023-04-13 16:06] LABS: Alanine Aminotransferase 26 U/L (0-33); Albumin Level 3.7 g/dL (3.5-5.2); Alkaline Phosphatase 110 U/L (35-105); Aspartate Amino Transferase 24 U/L (0-32); Blood Urea Nitrogen 19 mg/dL (6-20); Calcium 9.3 mg/dL (8.5-10.5); Carbon Dioxide 28 mmol/L (22-29); Chloride 97 mmol/L (98-107); Creatinine Clr Calc Pharmacy 59.5353; Globulin 3.3 g/dL (1.3-4.6); Glomerular Filtration Rate 57.4 mL/min (90-130); Glucose 127 mg/dL (65-115); Osmolality Calculated 282 mOsm/kg (285-295); Sodium 134 mmol/L (136-145); Total Bilirubin 0.5 mg/dL (0.15-1.2)
[2023-04-13 16:09] VITALS: BP 109/66; BP 111/64; BP 86/47; PULSE 58; PULSE 66; PULSE 67
[2023-04-13 16:17] LABS: Anion Gap 13.3 (5-19); Potassium 4.3 mmol/L (3.5-5.1)
== END 2023-04-13 17:32 | disposition home or self-care (01) ==
PROVIDERS: Emergency Provider Emergency Medicine; PCP Family Medicine
DX: I95.1 Orthostatic hypotension (principal); Z79.82 Long term (current) use of aspirin; Z79.4 Long term (current) use of insulin; Z72.0 Tobacco use; E11.9 Type 2 diabetes mellitus without complications
CPT/HCPCS: 36415; 70450; 71045; 80053; 85025; 93005; 96360; 96361; 99285; J7030

== ENCOUNTER 2023-06-11 11:49 | Outpatient (CLI) | payer MEDICAID, SELFPAY ==
[2023-06-11 13:13] LABS: Creatinine Urine, Random 57 mg/dL (28-217); Microalbum Creatinine Ratio Ur 18 mg/dL (0-20); Microalbumin Random Urine 1 ug/dL (0-20)
[2023-06-11 13:23] LABS: Estmated Average Glucose 177; Hemoglobin A1C 7.8 % (4.0-6.0)
[2023-06-11 13:32] LABS: Alanine Aminotransferase 45 U/L (0-33); Albumin Level 3.8 g/dL (3.5-5.2); Alkaline Phosphatase 145 U/L (35-105); Anion Gap 11.1 (5-19); Aspartate Amino Transferase 38 U/L (0-32); Blood Urea Nitrogen 13 mg/dL (6-20); Carbon Dioxide 31 mmol/L (22-29); Chloride 101 mmol/L (98-107); Chol HDL Ratio 2.83 mg/dL (0.0-4.40); Cholesterol 147 mg/dL (0-200); Globulin 3.2 g/dL (1.3-4.6); Glomerular Filtration Rate 64.8 mL/min (90-130); Glucose 226 mg/dL (65-115); HDL Cholesterol 52 mg/dL (60-100); LDL Cholesterol Calculated 78 mg/dL (50-129); Osmolality Calculated 295 mOsm/kg (285-295); Potassium 4.1 mmol/L (3.5-5.1); Sodium 139 mmol/L (136-145); Thyroid Stimulating Hormone 2.51 uIU/mL (0.27-4.20); Total Bilirubin 0.3 mg/dL (0.15-1.2); Triglycerides 84 mg/dL (0-150)
[2023-06-11 14:01] LABS: Free T4 Free Thyroxine 1.45 ng/dL (0.82-1.77)
== END 2023-06-11 11:50 | disposition home or self-care (01) ==
LOC: LAB 11:52
PROVIDERS: Visit Provider Internal Medicine
DX: E78.2 Mixed hyperlipidemia (principal); E03.9 Hypothyroidism, unspecified
CPT/HCPCS: 36415; 80053; 80061; 82044; 83036; 84439; 84443

== ENCOUNTER 2023-06-26 09:01 | Emergency (ER) | payer BC, MEDICAID, SELFPAY ==
[2023-06-26] VITALS (35 sets, daily range): BP systolic 109–115; BP diastolic 64–74; PULSE 70; RESP 17; TEMP 36.8; O2SAT 97–100; BMI 25.7
[2023-06-26 09:22] LABS: Basophils # 0.1 10^3/uL (0.0-0.1); Basophils % 0.9 %; Eosinophils # 0.3 10^3/uL (0.0-0.8); Eosinophils % 2.7 %; Hematocrit 42.3 % (36-47); Lymphocytes # 1.6 10^3/uL (0.8-4.8); Lymphocytes % 17.2 %; Mean Corpuscular HGB Conc 33.8 g/dL (30-55); Mean Corpuscular Hemoglobin 31.2 pg (27-33); Mean Corpuscular Volume 92.4 fl (85-98); Mean Platelet Volume 9.7 fL (7.4-10.4); Monocytes # 0.6 10^3/uL (0.2-0.9); Monocytes % 6.3 %; Neutrophils # 6.79 10^3/uL (1.8-7.7); Neutrophils % 72.6 %; Nucleated Red Blood Cells % 0 %; Platelet Count 247 10^3/cmm (157-399); Red Blood Count 4.58 10^6/uL (3.85-5.65); Red Cell Distribution Width 12.4 % (12.1-15.1); White Blood Count 9.35 10^3/uL (3.29-11.43)
[2023-06-26 09:24] LABS: Glucose Point of Care 539 mg/dL (70-110)
--- NOTE | 2023-06-26 09:24 | ED_ITS ---
HPI - General Adult 2 General: Chief complaint: General Medical Stated complaint: high blood sugar Time Seen by Provider: 06/26/23 09:06 Source: patient Mode of arrival: ambulatory Limitations: no limitations History of Present Illness: 58-year-old female has a history of diab etes she states her Dexcom has not been working she felt sick overnight had 1 episode of vomiting her blood sugar did read over 600 so she came manage she denies any pain denies any fever states she did give herself a dose of IM insulin before coming in today. Associated symptoms: Reports nausea and vomiting; Deny chest pain, dyspnea, headache(s) or rash Review of Systems 2 Const: Denies: fever(s), chills, body aches or change in appetite ENMT: Denies: throat pain or dental pain Card: Denies: chest pain Resp: Denies: dyspnea GI: Reports: nausea and vomiting; Denies: abdominal pain or diarrhea : Denies: dysuria Musc: Denies: neck pain or back pain Skin/Breast: Denies: rash Neuro: Denies: headache(s) PFSH ED 2 PFSH: Medical History Diabetic gastroparalysis Scalp mass Celiac disease Diabetes Gastroparesis Constipation [place] spotted fever 2016 DKA (diabetic ketoacidosis) Surgical History Hx of colonoscopy History of laparoscopic appendectomy History of tonsillectomy History of 3 sections Family History Sister Clotting disorder Other Cancer Diabetes Hypertension Denies family history of Bleeding disorder Thyroid disease Stroke Social History Smoking and tobacco/nicotine status: current every day tobacco/nicotine user (a pack ) Physical Exam 2 Const: COMMON NORMALS: no acute distress, patient oriented x3 and healthy appearing HENMT: COMMON NORMALS: normocephalic and atraumatic HEAD & SCALP: n ormocephalic and atraumatic Eye: COMMON NORMALS: Equal, round and reactive pupils present and EOMs intact bilaterally PUPIL: Yes Equal, round and reactive pupils present Neck/C-Spine: COMMON NORMALS: full ROM and supple Chest: COMMONS NORMALS: normal inspection of the chest and normal palpation of entire chest wall Resp: COMMON NORMALS: normal respiratory effort, No retractions, No use of accessory muscles and clear to auscultation bilaterally AUSCULTATION: clear to auscultation bilaterally Cardio: COMMON NORMALS: regular rate, regular rhythm and No murmurs present (Cardio) RATE: regular rate RHYTHM: regular rhythm GI: COMMON NORMALS: Normal to inspection, nondistended, normoactive bowel sounds present, Soft to palpation, non-tender and no masses PALPATION: Yes Soft to palpation Extremity: COMMON NORMALS: normal to inspection and full ROM Neuro: COMMON NORMALS: patient oriented x3, moves all extremities and no focal motor deficits Psych: COMMON NORMALS: mental status grossly normal, Normal thought process present and cooperative THOUGHT PROCESS: Normal thought process present Skin: COMMON NORMALS: no rashes or lesions noted and no wounds GENERAL SKIN EXAM: no rashes or lesions noted Course 2 Vital Signs: Vital signs: Vital Signs Temperature 98.3 F 06/26/23 09:17 Pulse Rate 70 06/26/23 09:17 Respiratory Rate 17 06/26/23 09:17 Blood Pressure 113/72 06/26/23 09:17 Pulse Oximetry 100 06/26/23 09:17 Oxygen Delivery Me thod Room Air 06/26/23 09:17 [facility] - General Adult Medical Decision Making Patient presents with hyperglycemia blood work is otherwise normal she is not DKA. Her glucose here is improving she is stable for discharge she is follow-up with PCP return if worsening she understands agrees to plan Medical Records I reviewed the patient's medical records. Lab Data I reviewed the patient's lab results. 06/26/23 09:18 06/26/23 09:18 Laboratory Results WBC 9.35 10^3/uL (3.29-11.43) 06/26/23 09:18 RBC 4.58 10^6/uL (3.85-5.65) 06/26/23 09:18 Hgb 14.30 g/dL (11.27-16.99) 06/26/23 09:18 Hct 42.3 % (36-47) 06/26/23 09:18 MCV 92.4 fl (85-98) 06/26/23 09:18 MCH 31.2 pg (27-33) 06/26/23 09:18 MCHC 33.8 g/dL (30-55) 06/26/23 09:18 RDW 12.4 % (12.1-15.1) 06/26/23 09:18 Plt Count 247 10^3/cmm (157-399) 06/26/23 09:18 MPV 9.7 fL (7.4-10.4) 06/26/23 09:18 Neut % (Auto) 72.6 % 06/26/23 09:18 Lymph % (Auto) 17.2 % 06/26/23 09:18 [place] % (Auto) 6.3 % 06/26/23 09:18 Eos % (Auto) 2.7 % 06/26/23 09:18 Baso % (Auto) 0.9 % 06/26/23 09:18 Neut # (Auto) 6.79 10^3/uL (1.8-7.7) 06/26/23 09:18 Lymph # (Auto) 1.6 10^3/uL (0.8-4.8) 06/26/23 09:18 [place] # (Auto) 0.6 10^3/uL (0.2-0.9) 06/26/23 09:18 Eos # (Auto) 0.3 10^3/uL (0.0-0.8) 06/26/23 09:18 Baso # (Auto) 0.1 10^3/uL (0.0-0.1) 06/26/23 09:18 Nucleated RBC % (auto) 0 % 06/26/23 09:18 Nucleated RBCs # 0.0 /100WBC 06/26/23 09:18 Specimen Type Arterial 06/26/23 09:30 Sample Site Brachial, left 06/26/23 09:30 ABG pH 7.40 (7.35-7.45) 06/26/23 09:30 ABG pCO2 45.7 mmHg (35-45) H 06/26/23 09:30 ABG pO2 63.8 mmHg (80.0-100.0) L 06/26/23 09:30 ABG PO2/FiO2 Ratio 0 06/26/23 09:30 ABG HCO3 28.0 mmol/L (22-26) H 06/26/23 09:30 ABG Base Excess 2.5 mmol/L (-2.0-2.0) H 06/26/23 09:30 Nate Test Pos 06/26/23 09:30 Hematocrit 37.6 % (37-47) 06/26/23 09:30 O2 Delivery Device Room air 06/26/23 09:30 FiO2 21.0 % 06/26/23 09:30 Saddle Stitcher ID Cak 06/26/23 09:30 Sodium 130 mmol/L (136-145) L 06/26/23 09:18 Potassium 4.2 mmol/L (3.5-5.1) 06/26/23 09:18 Chloride 90 mmol/L (98-107) L 06/26/23 09:18 Carbon Dioxide 26 mmol/L (22-29) 06/26/23 09:18 Anion Gap 18.2 (5-19) 06/26/23 09:18 BUN 22 mg/dL (6-20) H 06/26/23 09:18 Creatinine 1.1 mg/dL (0.5-0.9) H 06/26/23 09:18 GFR Calculation 51.4 mL/min (90-130) L 06/26/23 09:18 Glucose 551 mg/dL (65-115) H* 06/26/23 09:18 POC Glucose 397 mg/dL (70-110) H 06/26/23 12:05 Calculated Osmolality 298 mOsm/kg (285-295) H 06/26/23 09:18 Calcium 9.8 mg/dL (8.5-10.5) 06/26/23 09:18 Total Bilirubin 0.7 mg/dL (0.15-1.2) 06/26/23 09:18 AST 22 U/L (0-32) 06/26/23 09:18 ALT 39 U/L (0-33) H 06/26/23 09:18 Alkaline Phosphatase 178 U/L (35-105) H 06/26/23 09:18 Total Protein 8.1 g/dL (6.6-8.7) 06/26/23 09:18 Albumin 4.0 g/dL (3.5-5.2) 06/26/23 09:18 Globulin 4.1 g/dL (1.3-4.6) 06/26/23 09:18 No radiology studies performed this visit Discharge Plan Discharge Patient Disposition: Home Clinical Impression: Diabetes mellitus type 1.5, Hyperglycemia Condition: Stable Prescriptions: No Action atorvastatin 20 mg tablet 20 mg PO DAILY 90 Days Qty: 90 3RF albuterol sulfate [ProAir HFA] 90 mcg/actuation HFA aerosol inhaler 2 puff inhalation QID PRN (Reason: shortness of breath or wheezing) 30 Days Qty: 18 5RF pantoprazole 40 mg tablet,delayed release (DR/EC) 40 mg PO DAILY 30 Days Qty: 30 5RF promethazine 25 mg tablet 25 mg PO BID PRN (Reason: nausea and vomiting) Qty: 30 1RF aspirin [Adult Aspirin Regimen] 81 mg tablet,delayed release (DR/EC) 81 mg PO DAILY Hold Instructions: Resume on 11/23/21. Glucagon (HCl) Emergency Kit 1 mg recon soln 1 mg SUBCUT Q20M PRN (Reason: hypoglycemia) Qty: 1 3RF Rx Instructions: until target blood sugar attained (DME) Dexcom G6 Sensor Device See Rx Instructions .ROUTE .COMPLEX Qty: 9 1RF Dose Instruction: CHANGE EVERY 10 DAYS Rx Instructions: CHANGE EVERY 10 DAYS (DME) Dexcom G6 Transmitter Device See Rx Instructions .Route Qty: 1 1RF Rx Instructions: Change every 90 days. (DME) Omnipod 5 G6 Pods (Gen 5) Cartridge See Rx Instructions .ROUTE .COMPLEX Qty: 36 1RF Dose Instruction: USE DIRECTED CHANGE EVERY 3 DAYS Rx Instructions: USE DIRECTED CHANGE EVERY 3 DAYS triamterene-hydrochlorothiazid 37.5-25 mg capsule 1 cap PO DAILY (DME) Dexcom G6 Skiver Uppers Or Linings Misc See Rx Instructions .Route Qty: 1 0RF Rx Instructions: Check BS 4 - 6 times a day. (DME) Omnipod 5 G6 Intro Kit (Gen 5) Cartridge See Rx Instructions .Route Qty: 1 0RF Rx Instructions: As directed (DME) diabetic shoes with 3 inserts See Rx Instructions .Route .MEDSUPPLY Qty: 1 0RF Rx Instructions: As directed to UMESH[facility]O levothyroxine 25 mcg tablet 25 mcg PO DAILY Qty: 30 1RF insulin aspart U-100 [Novolog FlexPen U-100 Insulin] 100 unit/mL (3 mL) insulin pen 70 unit SUBCUT DAILY Qty: 63 1RF magnesium 250 mg Tablet 250 mg PO QPM docusate sodium [Colace] 100 mg Capsule 200 mg PO QAM bisacodyl [Dulcolax (bisacodyl)] 5 mg Tablet,Delayed Release (Dr/Ec) 5 mg PO QPM meloxicam 15 mg tablet 15 mg PO DAILY ondansetron 4 mg tablet,disintegrating 4 mg PO TID PRN (Reason: Nausea) meclizine 25 mg tablet 25 mg PO TID PRN (Reason: Dizziness) Discharge Orders: Discharge ED (Routine); Ordered 06/26/23 Ordered By: Yakov Morrison Referrals: Carla Blevins MD [Primary Care Provider] - 4-7 days Discharge Diet: Advance as tolerated Discharge Activity: Resume usual activity Patient Instructions: Diabetic Hyperglycemia (ED) Coding Level of Care Code ED Traffic Court Referee for Mari Sandoval
[2023-06-26 09:38] LABS: Alanine Aminotransferase 39 U/L (0-33); Alkaline Phosphatase 178 U/L (35-105); Anion Gap 18.2 (5-19); Aspartate Amino Transferase 22 U/L (0-32); Blood Urea Nitrogen 22 mg/dL (6-20); Calcium 9.8 mg/dL (8.5-10.5); Carbon Dioxide 26 mmol/L (22-29); Chloride 90 mmol/L (98-107); Globulin 4.1 g/dL (1.3-4.6); Glomerular Filtration Rate 51.4 mL/min (90-130); Osmolality Calculated 298 mOsm/kg (285-295); Potassium 4.2 mmol/L (3.5-5.1); Sodium 130 mmol/L (136-145); Total Bilirubin 0.7 mg/dL (0.15-1.2); Total Protein 8.1 g/dL (6.6-8.7)
[2023-06-26 09:41] LABS: ABG PCO2 45.7 mmHg (35-45); Arterial Blood Gas Hematocrit 37.6 % (37-47); Base Excess ABG 2.5 mmol/L (-2.0-2.0); Blood Gas Allen Test Pos; Blood Gas Operator Identificat CAK; Blood Gas Sample Site Brachial, left; Blood Gas Sample Type Arterial; Oxygen Device ROOM AIR; PO2 ABG 63.8 mmHg (80.0-100.0); PO2 FiO2 Ratio Arterial Blood 0
[2023-06-26 09:46] LABS: Glucose 551 mg/dL (65-115)
[2023-06-26 10:21] LABS: Glucose Point of Care 464 mg/dL (70-110)
[2023-06-26] MEDS: sodium chloride 0.9% 1,000 ML 999 ML IV ×2 (10:53→11:34)
[2023-06-26] MEDS: ondansetron 2 mg/ML SDV 2 mL 4 MG IVP (10:53)
[2023-06-26] MEDS: insulin regular-human 100 units/1 mL 6 UNIT IVP (10:53)
[2023-06-26 11:11] LABS: Glucose Point of Care 423 mg/dL (70-110)
[2023-06-26] MEDS: insulin regular-human 100 units/1 mL 5 UNIT IVP (11:35)
[2023-06-26 12:08] LABS: Glucose Point of Care 397 mg/dL (70-110)
[2023-06-26] MEDS: insulin nph human 100 units/1 mL 6 UNIT SUBCUT (12:28)
== END 2023-06-26 12:43 | disposition home or self-care (01) ==
PROVIDERS: Emergency Provider Emergency Medicine; PCP Family Medicine
DX: E13.65 Other specified diabetes mellitus with hyperglycemia (principal); Z79.82 Long term (current) use of aspirin; Z79.4 Long term (current) use of insulin; F17.210 Nicotine dependence, cigarettes, uncomplicated
CPT/HCPCS: 36416; 36600; 80053; 82803; 82962; 85025; 96361; 96372; 96374; 96375; 96376; 99284; J1815; J2405; J7030

== ENCOUNTER 2023-07-08 14:30 | Outpatient (CLI) | payer MEDICAID, SELFPAY | END 2023-07-08 14:31 | disposition home or self-care (01) | LOC: SLEEP 07-09 16:06 | PROVIDERS: PCP Family Medicine; Visit Provider Family Medicine | DX: G47.10 Hypersomnia, unspecified (principal) | CPT/HCPCS: G0399 ==

== ENCOUNTER → 2023-07-17 08:11 | Outpatient (BNVA) | payer MEDICAID, SELFPAY | PROVIDERS: PCP Family Medicine; Visit Provider Specialist | DX: M25.512 Pain in left shoulder (principal); M12.812 Other specific arthropathies, not elsewhere classified, left shoulder; Z71.89 Other specified counseling | CPT/HCPCS: 73030 ==

== ENCOUNTER 2023-08-03 16:47 | Observation (INO) | payer BC, MEDICAID, SELFPAY ==
--- NOTE | 2023-08-03 16:47 | ECG_ITS ---
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 Measurements Intervals [place] Rate: 56 P: 25 [place]: 127 QRS: 9 QRSD: 124 T: -3 QT: 437 QTc: 423 Interpretive Statements SINUS BRADYCARDIA RIGHT BUNDLE BRANCH BLOCK [120+ ms QRS DURATION, UPRIGHT V1, 40+ ms S IN I/aVL/V4/V5/V6] POSSIBLE ANTERIOR MYOCARDIAL INFARCTION , OF INDETERMINATE AGE [30 ms Q WAVE IN V3/V4, OR R < 0.2 mV IN V4] Compared to ECG 04/13/2023 15:36:57 Right bundle-branch block now present Myocardial infarct finding now present Sinus rhythm no longer present Electronically Signed On 08-07-2023 13:18:55 CDT by Herminio Ornelas M.D. [id number] f
--- NOTE | 2023-08-03 17:01 | XRR_ITS ---
PROCEDURE INFORMATION: Exam: XR Chest Exam date and time: 08/03/2023 5:10 PM Age: 58 years old Clinical indication: Pain; Chest pressure; Additional info: Cp TECHNIQUE: Imaging protocol: Radiologic exam of the chest. Views: 1 view. COMPARISON: CR XR chest 1V portable [id number] 04/13/2023 4:11 PM FINDINGS: Lungs: Unremarkable. No consolidation. Pleural spaces: Unremarkable. No pleural effusion. No pneumothorax. Heart/Mediastinum: Unremarkable. No cardiomegaly. Bones/joints: Unremarkable. XR/XR chest 1V portable [id number] IMPRESSION: No acute findings.
--- NOTE | 2023-08-03 17:02 | ECG_ITS ---
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 Measurements Intervals [place] Rate: 56 P: 25 [place]: 127 QRS: 9 QRSD: 124 T: -3 QT: 437 QTc: 423 Interpretive Statements SINUS BRADYCARDIA RIGHT BUNDLE BRANCH BLOCK [120+ ms QRS DURATION, UPRIGHT V1, 40+ ms S IN I/aVL/V4/V5/V6] POSSIBLE ANTERIOR MYOCARDIAL INFARCTION , OF INDETERMINATE AGE [30 ms Q WAVE IN V3/V4, OR R < 0.2 mV IN V4] Compared to ECG 04/13/2023 15:36:57 Right bundle-branch block now present Myocardial infarct finding now present Sinus rhythm no longer present Electronically Signed On 08-07-2023 13:18:50 CDT by Herminio Ornelas M.D. [email or web address]/[id number] f
[2023-08-03 17:06] VITALS: BP 156/78; PULSE 58; RESP 16; TEMP 36.6; O2SAT 97
--- NOTE | 2023-08-03 19:33 | W.ED.CHESTPA ---
HPI - Chest Pain General: Chief Complaint: Chest Pain Stated Complaint: CP PCP sent due to EKG Time Seen by Provider: 08/03/23 18:53 History of Present Illness: Patient presents to the ER with complaints of bilateral lower extremity swelling for about the last 2 weeks, patient is on triamterene hydrochlorothiazide for many years and has been taking it. Swelling is actually better today than it has been. Patient also complains of chest heaviness over the last 3 days. Also notes some increasing shortness of breath. This is worse when she is lying down. The patient has been to her family practice doctor and has sees Dr. Burns cardiology and have an echo pending. Patient is also a insulin requiring diabetic. Patient's chest pressure does not radiate it stays in her chest. Has been going off and on for about the last 3 days. Patient has had this before as well as had her swelling in her bilateral lower extremities before. Review of Systems General: Reports: 10 or more systems reviewed and unremarkable except in HPI and below PFSH ED PFSH: Medical History Diabetic gastroparalysis Scalp mass Celiac disease Diabetes Gastroparesis Constipation [employer] spotted fever 2016 DKA (diabetic ketoacidosis) Surgical History Hx of colonoscopy History of laparoscopic appendectomy History of tonsillectomy History of 3 sections Family History Sister Clotting disorder Other Cancer Diabetes Hypertension Denies family history of Bleeding disorder Thyroid disease Stroke Social History Smoking and tobacco/nicotine status: never used tobacco/nicotine Physical Exam Const: COMMON NORMALS: no acute distress, average body habitus, patient oriented x3, no limitations, healthy appearing, alert and well nourished HENMT: COMMON NORMALS: normocephalic, atraumatic, hearing grossly normal bilaterally, external ears normal, Normal external nose present and moist oral mucous membranes HEAD & SCALP: normocephalic and atraumatic NOSE: Normal external nose present EXTERNAL EAR: Yes external ears normal Neck/C-Spine: COMMON NORMALS: no JVD Chest: COMMONS NORMALS: normal inspection of the chest and normal palpation of entire chest wall Resp: COMMON NORMALS: normal respiratory effort, No retractions, No use of accessory muscles and clear to auscultation bilaterally AUSCULTATION: clear to auscultation bilaterally Cardio: COMMON NORMALS: no JVD, regular rate, regular rhythm, S1 normal heart sound present, S2 normal heart sound present, No gallops present (Cardio), No clicks present (Cardio) and No murmurs present (Cardio) RATE: regular rate RHYTHM: regular rhythm HEART SOUNDS: S1 normal heart sound present and S2 normal heart sound present GI: COMMON NORMALS: Normal to inspection, nondistended, normoactive bowel sounds present, Soft to palpation, non-tender, No hepatosplenomegaly present and no masses PALPATION: Yes Soft to palpation and Yes No hepatosplenomegaly present Extremity: NARRATIVE EXTREMITY EXAM: 2+ pitting bilateral lower extremity edema up to the knees, Neuro: COMMON NORMALS: patient oriented x3 SENSORIUM/ORIENTATION: Yes alert Course Vital Signs: Vital signs: Vital Signs Temperature 97.8 F 08/03/23 17:06 Pulse Rate 60 08/03/23 22:56 Respiratory Rate 16 08/03/23 22:56 Blood Pressure 151/77 08/03/23 22:56 Pulse Oximetry 92 08/03/23 22:56 MDM - Chest Pain Medical Decision Making Patient was worked up in a standard chest pain fashion, serial lab work serial EKGs, EKGs have all been stable the day but when looking at them in the past we did notice some inverted T waves present today in V1 V2 and V3, patient has is a diabetic and requires insulin. I discussed these results with the patient and and suggest that she allow us to put her in the hospital for observation for further EKGs troponins and possible cardiology consult in the morning. She is agreeable. Dr. Fregoso was consulted who agreed to place patient observation for chest pain workup. Differential Diagnosis Unlikely acute massive pulmonary embolism, acute respiratory failure, acute myocardial infarction, cardiac arrest or sudden cardiac Medical Records I reviewed the patient's medical records. Lab Data I reviewed the patient's lab results. 08/03/23 19:45 08/03/23 19:45 Radiology Impressions Chest X-Ray 08/03/23 17:01 IMPRESSION: No acute findings. Laboratory Results WBC 8.63 10^3/uL (3.29-11.43) 08/03/23 19:45 RBC 3.66 10^6/uL (3.85-5.65) L 08/03/23 19:45 Hgb 11.50 g/dL (11.27-16.99) 08/03/23 19:45 Hct 36.3 % (36-47) 08/03/23 19:45 MCV 99.2 fl (85-98) H 08/03/23 19:45 MCH 31.4 pg (27-33) 08/03/23 19:45 MCHC 31.7 g/dL (30-55) 08/03/23 19:45 RDW 12.4 % (12.1-15.1) 08/03/23 19:45 Plt Count 191 10^3/cmm (157-399) 08/03/23 19:45 MPV 10.2 fL (7.4-10.4) 08/03/23 19:45 Neut % (Auto) 60.9 % 08/03/23 19:45 Lymph % (Auto) 27.9 % 08/03/23 19:45 [place] % (Auto) 6.3 % 08/03/23 19:45 Eos % (Auto) 3.9 % 08/03/23 19:45 Baso % (Auto) 0.8 % 08/03/23 19:45 Neut # (Auto) 5.25 10^3/uL (1.8-7.7) 08/03/23 19:45 Lymph # (Auto) 2.4 10^3/uL (0.8-4.8) 08/03/23 19:45 [place] # (Auto) 0.5 10^3/uL (0.2-0.9) 08/03/23 19:45 Eos # (Auto) 0.3 10^3/uL (0.0-0.8) 08/03/23 19:45 Baso # (Auto) 0.1 10^3/uL (0.0-0.1) 08/03/23 19:45 Nucleated RBC % (auto) 0 % 08/03/23 19:45 Nucleated RBCs # 0.0 /100WBC 08/03/23 19:45 Sodium 139 mmol/L (136-145) 08/03/23 19:45 Potassium 4.4 mmol/L (3.5-5.1) 08/03/23 19:45 Chloride 105 mmol/L (98-107) 08/03/23 19:45 Carbon Dioxide 27 mmol/L (22-29) 08/03/23 19:45 Anion Gap 11.4 (5-19) 08/03/23 19:45 BUN 15 mg/dL (6-20) 08/03/23 19:45 Creatinine 0.7 mg/dL (0.5-0.9) 08/03/23 19:45 GFR Calculation 86.6 mL/min (90-130) L 08/03/23 19:45 Glucose 144 mg/dL (65-115) H 08/03/23 19:45 Calculated Osmolality 291 mOsm/kg (285-295) 08/03/23 19:45 Calcium 9.0 mg/dL (8.5-10.5) 08/03/23 19:45 Magnesium 1.7 mg/dL (1.7-2.3) 08/03/23 19:45 Total Bilirubin 0.2 mg/dL (0.15-1.2) 08/03/23 19:45 AST 39 U/L (0-32) H 08/03/23 19:45 ALT 116 U/L (0-33) H 08/03/23 19:45 Alkaline Phosphatase 161 U/L (35-105) H 08/03/23 19:45 Troponin T Baseline 14 ng/L (0-10) H 08/03/23 19:45 Troponin T 120 Minute 13.63 ng/L (0-10) H 08/03/23 21:45 Delta Troponin T -0.37 ABS# (0-10) L 08/03/23 21:45 NT-Pro-B Natriuret Pep 489 pg/mL (0-125) H 08/03/23 19:45 Total Protein 6.3 g/dL (6.6-8.7) L 08/03/23 19:45 Albumin 3.7 g/dL (3.5-5.2) 08/03/23 19:45 Globulin 2.6 g/dL (1.3-4.6) 08/03/23 19:45 Lipase 20 U/L (13-60) 08/03/23 19:45 Urine Color Yellow (Yellow) 08/03/23 20:32 Urine Appearance Clear (CLEAR) 08/03/23 20:32 Urine pH 8 (5-7) H 08/03/23 20:32 Ur Specific [place] 1.010 (1.005-1.030) 08/03/23 20:32 Urine Protein Neg (Negative) 08/03/23 20:32 Urine Glucose (UA) Norm (Normal) 08/03/23 20:32 Urine Ketones Negative (Negative) 08/03/23 20:32 Urine Blood Neg (Negative) 08/03/23 20:32 Urine Nitrate Negative (Negative) 08/03/23 20:32 Urine Bilirubin Neg (Negative) 08/03/23 20:32 Prot Sulfosalicylic Acd Negative (Negative) 08/03/23 20:32 Urine Urobilinogen Norm mg/dL (Negative) 08/03/23 20:32 Ur Leukocyte Esterase Negative (Negative) 08/03/23 20:32 All radiology interpretation(s) finalized by discharge Discharge Plan Discharge Patient Disposition: Placed in Observation Clinical Impression: Abnormal ECG Chest pain Qualifiers: Chest pain type: unspecified Qualified Code(s): R07.9 - Chest pain, unspecified Edema Qualifiers: Edema type: localized Qualified Code(s): R60.0 - Localized edema Diabetes Qualifiers: Diabetes mellitus type: type 2 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
[2023-08-03 19:53] VITALS: BP 159/84; PULSE 51; RESP 16; O2SAT 100
[2023-08-03 19:53] LABS: Basophils # 0.1 10^3/uL (0.0-0.1); Basophils % 0.8 %; Eosinophils # 0.3 10^3/uL (0.0-0.8); Eosinophils % 3.9 %; Hematocrit 36.3 % (36-47); Lymphocytes # 2.4 10^3/uL (0.8-4.8); Lymphocytes % 27.9 %; Mean Corpuscular HGB Conc 31.7 g/dL (30-55); Mean Corpuscular Hemoglobin 31.4 pg (27-33); Mean Corpuscular Volume 99.2 fl (85-98); Mean Platelet Volume 10.2 fL (7.4-10.4); Monocytes # 0.5 10^3/uL (0.2-0.9); Monocytes % 6.3 %; Neutrophils # 5.25 10^3/uL (1.8-7.7); Neutrophils % 60.9 %; Nucleated Red Blood Cells % 0 %; Platelet Count 191 10^3/cmm (157-399); Red Blood Count 3.66 10^6/uL (3.85-5.65); Red Cell Distribution Width 12.4 % (12.1-15.1); White Blood Count 8.63 10^3/uL (3.29-11.43)
--- NOTE | 2023-08-03 19:53 | ECG_ITS ---
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 Measurements Intervals [place] Rate: 49 P: 29 [place]: 165 QRS: 14 QRSD: 137 T: 11 QT: 466 QTc: 423 Interpretive Statements SINUS BRADYCARDIA RIGHT BUNDLE BRANCH BLOCK [120+ ms QRS DURATION, UPRIGHT V1, 40+ ms S IN I/aVL/V4/V5/V6] POSSIBLE ANTERIOR MYOCARDIAL INFARCTION , OF INDETERMINATE AGE [30 ms Q WAVE IN V3/V4, OR R < 0.2 mV IN V4] Compared to ECG 08/03/2023 16:47:26 No significant changes Electronically Signed On 08-07-2023 13:46:45 CDT by Herminio Ornelas M.D. [email or web address] st[facility].[employer]/store/OM/[id number]
[2023-08-03 20:10] LABS: Alanine Aminotransferase 116 U/L (0-33); Albumin Level 3.7 g/dL (3.5-5.2); Alkaline Phosphatase 161 U/L (35-105); Aspartate Amino Transferase 39 U/L (0-32); Blood Urea Nitrogen 15 mg/dL (6-20); Carbon Dioxide 27 mmol/L (22-29); Chloride 105 mmol/L (98-107); Creatinine Clr Calc Pharmacy 90.1912; Globulin 2.6 g/dL (1.3-4.6); Glomerular Filtration Rate 86.6 mL/min (90-130); Glucose 144 mg/dL (65-115); Lipase 20 U/L (13-60); Osmolality Calculated 291 mOsm/kg (285-295); Sodium 139 mmol/L (136-145); Total Bilirubin 0.2 mg/dL (0.15-1.2); Total Protein 6.3 g/dL (6.6-8.7)
[2023-08-03 20:11] LABS: Troponin(5th) Baseline 14 ng/L (0-10)
[2023-08-03 20:14] LABS: Anion Gap 11.4 (5-19); Potassium 4.4 mmol/L (3.5-5.1)
[2023-08-03 20:21] LABS: Magnesium 1.7 mg/dL (1.7-2.3); NT Pro B Type Natriuretic Pept 489 pg/mL (0-125)
[2023-08-03 20:40] LABS: Add Urine Microscopic? NO; Charge for UA Resulting for Rev
[2023-08-03 20:42] LABS: Bilirubin Urine Neg (Negative); Blood Urine Neg (Negative); Glucose Urine UA Norm (Normal); Ketones Urine Negative (Negative); Leukocyte Esterase Urine Negative (Negative); Nitrate Urine Negative (Negative); Protein Urine Neg (Negative); Sulfosalicylic Acid Urine Negative (Negative); Urine Appearance Clear (CLEAR); Urine Color Yellow (Yellow); Urobilinogen Urine Norm (Negative); pH Urine 8 (5-7)
[2023-08-03 22:07] LABS: Troponin 5 2HR 13.63 ng/L (0-10)
[2023-08-03 22:11] LABS: Troponin 5 2HR Delta -0.37 ABS# (0-10)
[2023-08-03 22:56] VITALS: BP 151/77; PULSE 60; RESP 16; O2SAT 92
--- NOTE | 2023-08-03 23:02 | ECG_ITS ---
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 Measurements Intervals [place] Rate: 59 P: 31 [place]: 172 QRS: 3 QRSD: 129 T: 6 QT: 451 QTc: 450 Interpretive Statements SINUS BRADYCARDIA RIGHT BUNDLE BRANCH BLOCK [120+ ms QRS DURATION, UPRIGHT V1, 40+ ms S IN I/aVL/V4/V5/V6] POSSIBLE ANTERIOR MYOCARDIAL INFARCTION , OF INDETERMINATE AGE [30 ms Q WAVE IN V3/V4, OR R < 0.2 mV IN V4] Compared to ECG 08/03/2023 19:53:38 No significant changes Electronically Signed On 08-07-2023 13:47:18 CDT by Herminio Ornelas M.D. [email or web address] clinic [facility].[employer]/store/OM/[id number]
[2023-08-03 23:08] VITALS: BP 124/68; PULSE 64; RESP 16; O2SAT 98
--- NOTE | 2023-08-03 23:39 | USCV_ITS ---
Katy Hagen Age: 58 Gender: F : 1965 Exam Date: 08/03/2023 23:52 Ordering Phys: Rey Mcgovern DO Technologist: LUPE Exam Location: [facility] [place] Indication: chest heaviness, lower extremity edema, IDDM x 15 years. BP: 124 / 64 HR: 52 Rhythm: Sinus Technical Quality: Adequate MEASUREMENTS (Male / Female) Normal Values 2D ECHO LV Diastolic Diameter PLAX 3.9 cm 4.2 - 5.9 / 3.9 - 5.3 cm IVS Diastolic Thickness 1.1 cm 0.6 - 1.0 / 0.6 - 0.9 cm IVS Systolic Thickness 1.7 cm LVPW Diastolic Thickness 1.4 cm 0.6 - 1.0 / 0.6 - 0.9 cm LVPW Systolic Thickness 1.7 cm LVOT Diameter 1.8 cm LV Ejection Fraction 2D Teich 68.4 % LV Ejection Fraction MOD 2C 58.9 % LV Ejection Fraction 2C AL 59.7 % LA Diameter 2.8 cm LA Sys Volume AL 47.4 cm cubed LA Sys Volume Index AL 25.1 cm cubed/m squared Aorta at Sinotubular Diameter 2.8 cm IVC Diameter 2.2 cm M-MODE LA Ao Ratio MM 1.5 AV Cusp Separation MM 1.8 cm DOPPLER AV Peak Velocity 133.0 cm/s LVOT Peak Velocity 96.0 cm/s AV Area Cont Eq vti 1.8 cm squared AV Area Cont Eq pk 1.8 cm squared MV Area PHT 4.1 cm squared Mitral E to A Ratio 1.3 TV Peak E Velocity 54.0 cm/s PV Peak Velocity 80.0 cm/s FINDINGS Left Ventricle Normal left ventricular size, systolic function and wall thickness, with no regional wall motion abnormalities.left ventricular ejection fraction is estimated at 60 %. Normal diastolic filling pattern. Right Ventricle The right ventricle is normal in size and function. Right Atrium The right atrium is normal in size. Left Atrium The left atrium is normal in size. Mitral Valve Structurally normal mitral valve without significant stenosis or prolapse. There is no mitral regurgitation. Aortic Valve Structurally normal aortic valve without significant sclerosis or stenosis. There is no aortic regurgitation. Tricuspid Valve Structurally normal tricuspid valve without significant stenosis, trace regurgitation. Pulmonary artery systolic pressure is normal. Pulmonic Valve Structurally normal pulmonic valve without significant stenosis. There is no pulmonic regurgitation. Pericardium Normal pericardium without effusion. Aorta Normal ascending aorta dimension. IVC The inferior vena cava appears normal. CONCLUSIONS 1-Normal left ventricular size, systolic function and wall thickness, with no regional wall motion abnormalities.left ventricular ejection fraction is estimated at 60 %. Normal diastolic filling pattern. 2-No significant valve abnormalities. 3-There is no pericardial effusion. 4-Right atrial pressure is around 5 mm of mercury. 5-There are no prior echocardiogram studies to compare. Fany Villeda MD (Electronically Signed) Final Date: 04 August 2023 20:48 S
--- NOTE | 2023-08-03 23:44 | P.HP_ITS ---
Providers/Chief Complaint 2 Admitting Physician: Rey Mcgovern DO Primary Care Provider: Carla Blevins MD Chief Complaint: CP PCP sent due to EKG History of Present Illness Katy Hagen is a 58 year old female with diabetes, celiac disease, hyperlipidemia, gastroparesis, bradycardia and dizziness found to be orthostatic and 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 Patient was started on pyridostigmine bromide by Dr. Gee and an echo was ordered but not done yet. Patient was experiencing chest heaviness for the last 2 days. She thought she had bronchitis and went to her primary care provider. She had an abnormal EKG and was sent to the emergency room. She also complains of severe lower extremity swelling and the only reason why it is less if she laid in bed all day today. The heaviness is still present she denies nausea or vomiting associated. She denies any radiation of this discomfort anywhere else. Review of Systems 2 Const: Denies: fever(s) or chills Eyes: Denies: change in vision ENMT: Denies: throat pain or nasal congestion Card: Reports: chest pain, swelling of feet/ankles, lightheadedness and dyspnea on exertion; Denies: palpitations Resp: Reports: dyspnea; Denies: productive cough GI: Denies: abdominal pain, nausea, vomiting or change in stool character : Denies: dysuria Musc: Denies: back pain or extremity pain Skin/Breast: Denies: rash or lesions Neuro: Reports: headache(s); Denies: dizziness Psych: Denies: anxiety or depression Stewart/Lymph: Denies: easy bruising or easy bleeding Medications/Allergies Home Medications Medication Instructions Recorded Confirmed Last Taken Type aspirin 81 mg tablet,delayed 81 mg PO DAILY 07/17/21 08/03/23 06/25/23 History release (Adult Aspirin Regimen) glucagon HCl 1 mg solution for 1 mg SUBCUT Q20M PRN hypoglycemia 08/29/21 08/03/23 Unknown Rx injection (Glucagon (HCl) #1 ea Emergency Kit) blood-glucose meter,continuous #1 ea 10/14/21 08/03/23 Unknown Rx (Dexcom G6 Housekeeping Lead) insulin pump cartridge,automated #1 ea 10/14/21 08/03/23 Unknown Rx dose,BT with controller subcutaneous (Omnipod 5 G6 Intro Kit (Gen 5) subcutaneous cartridge with controller) diabetic shoes with 3 inserts #1 ea 07/08/22 08/03/23 Unknown Rx albuterol sulfate 90 mcg/actuation 2 puff inhalation QID PRN 01/29/23 08/03/23 Unknown Rx aerosol inhaler (ProAir HFA) shortness of breath or wheezing 30 days #18 grams atorvastatin 20 mg tablet 20 mg PO DAILY 90 days #90 tabs 01/29/23 08/03/23 06/25/23 Rx pantoprazole 40 mg tablet,delayed 40 mg PO DAILY 30 days #30 tabs 01/29/23 08/03/23 06/25/23 Rx release promethazine 25 mg tablet 25 mg PO BID PRN nausea and 01/29/23 08/03/23 Unknown Rx vomiting #30 tabs magnesium 250 mg tablet 250 mg PO QPM 04/12/23 08/03/23 06/25/23 History bisacodyl 5 mg tablet,delayed 5 mg PO QPM 04/13/23 08/03/23 06/25/23 History release (Dulcolax (bisacodyl)) docusate sodium 100 mg capsule 200 mg PO QAM 04/13/23 08/03/23 06/25/23 History (Colace) triamterene 37.5 1 cap PO DAILY 06/15/23 08/03/23 06/25/23 History mg-hydrochlorothiazide 25 mg capsule blood-glucose sensor (Dexcom G6 #9 ea 06/17/23 08/03/23 Unknown Rx Sensor device) blood-glucose transmitter (Dexcom #1 ea 06/17/23 08/03/23 Unknown Rx G6 Transmitter device) insulin pump cart,automated,BT #36 ea 06/17/23 08/03/23 Unknown Rx (Omnipod 5 G6 Pods (Gen 5) subcutaneous cartridge) insulin aspart U-100 100 unit/mL 70 unit (0.7 mL) SUBCUT DAILY #63 06/22/23 08/03/23 Unknown Rx (3 mL) subcutaneous pen (Novolog mL FlexPen U-100 Insulin aspart) meclizine 25 mg tablet 25 mg PO TID PRN Dizziness 06/26/23 08/03/23 Unknown History meloxicam 15 mg tablet 15 mg PO DAILY PAIN 06/26/23 08/03/23 06/25/23 History insulin glargine 100 unit/mL (3 15 unit (0.15 mL) SUBCUT QAM #15 mL 06/29/23 08/03/23 Unknown Rx mL) subcutaneous pen (Lantus Solostar U-100 Insulin) pyridostigmine bromide 60 mg tablet 60 mg PO TID #90 tabs 07/07/23 08/03/23 Unknown Rx levothyroxine 25 mcg tablet See Rx Instructions .Route 07/08/23 08/03/23 Unknown Rx .COMPLEX #30 tabs ondansetron HCl 4 mg tablet 4 mg PO Q8H PRN nausea and 08/03/23 08/03/23 Unknown Rx vomiting #90 tabs oxybutynin chloride 10 mg 10 mg PO DAILY 90 days #90 tabs 08/03/23 08/03/23 Unknown Rx tablet,extended release 24 hr Allergies Allergy/AdvReac Type Severity Reaction Status Date / Time adhesive tape Allergy blisters Verified 08/03/23 17:09 codeine Allergy hives Verified 08/03/23 17:09 PFSH Acute 2 PFSH: Medical History Diabetic gastroparalysis Scalp mass Celiac disease Diabetes Gastroparesis Constipation [place] spotted fever 2016 DKA (diabetic ketoacidosis) Surgical History Hx of colonoscopy History of laparoscopic appendectomy History of tonsillectomy History of 3 sections Family History Sister Clotting disorder Other Cancer Diabetes Hypertension Denies family history of Bleeding disorder Thyroid disease Stroke Social History Smoking and tobacco/nicotine status: never used tobacco/nicotine Vitals/I&O/Wt Last Vital Signs Temp 97.8 F 08/03/23 17:06 Pulse 64 08/03/23 23:08 Resp 16 08/03/23 23:08 BP 124/68 08/03/23 23:08 Pulse Ox 98 08/03/23 23:08 Weight last 48 hrs Weight 77.111 kg Physical Exam 2 Narrative: Alert and oriented to person place time and situation no acute distress at time of exam patient appears older than her stated age of 58 HEENT: Head is normal phallic atraumatic pupils equal and reactive to light and accommodation extraocular muscles are intact there is no scleral icterus nasal mucous and pharyngeal mucosa moist and pink. Patient with poor dentition and missing teeth. Neck is supple no JVD carotid bruits or lymphadenopathy Heart is regular rate bradycardic. No loud murmur Lungs severely diminished breath sounds throughout rhonchi heard bilateral lower lobes. No significant wheezing auscultated poor expiratory phase Abdomen soft nontender nondistended positive bowel sounds no hepatosplenomegaly Extremities. +2-3 pitting edema to the bilateral knees with rushing to her skin Back no CVA tenderness no spinal tenderness Psych mood and affect are appropriate for current condition Skin no lesions or rashes noted multiple tattoos noted Data 08/03/23 19:45 08/03/23 19:45 CXR: My impression: Blunting of the right costophrenic angle Otherwise no acute disease Radiologist's impression: IMPRESSION: No acute findings. EKG x 4: My Interpretation: Sinus bradycardia with a rate just less than 60 right bundle branch block QRS of point 129 Inverted T waves V1 through 4, not present in March 2023 A&P Assessment and plan (1) Abnormal ECG: New T wave inversion in the 1 through 4. Troponins are negative thus far. Will complete the series Place on telemetry Obtain echocardiogram; concern for silent KS in the last few months. (2) Chest pressure: As above. (3) Bilateral lower extremity edema: Evaluate for congestive heart failure as etiology. (4) Diabetes type 1, uncontrolled: Order home dose Lantus her insulin pump Qualifiers: Glycemic state: with hyperglycemia Qualified Code(s): E10.65 - Type 1 diabetes mellitus with hyperglycemia (5) Bradycardia: (6) Orthostatic hypotension: Plan Reviewed medications for culprit of lower extremity edema. At this time nothing stands out to me. I think pyridostigmine should be looked into. Patient's dose of Lipitor was increased and changed to nightly as per indicated. Will treat with 1 dose IV Lasix and reassess for leg edema while we wait on echocardiogram Attestations 2 Medical Necessity Statement*: Patient will be placed in observation for workup. Patient could likely be discharged home after 1 midnight Coding Level of Care Code Acute Code for Chg Fwd Diagnoses Abnormal ECG R94.31 Chest pressure R07.89 Bilateral lower extremity edema R60.0 Uncontrolled type 1 diabetes mellitus with hyperglycemia E10.65 Glycemic state: with hyperglycemia Bradycardia R00.1 Orthostatic hypotension I95.1
[2023-08-04] VITALS (13 sets, daily range): BP systolic 117–168; BP diastolic 62–80; PULSE 47–65; RESP 16–18; TEMP 36.6–37.1; O2SAT 96–98
[2023-08-04] MEDS: enoxaparin 40 mg/0.4 mL Syringe SUBCUT ×2 (01:03→21:50)
[2023-08-04] MEDS: FUROsemide 10 mg/mL SDV 4mL 40 MG IVP (01:03)
[2023-08-04] MEDS: pyridostigmine 60 mg Tablet PO ×2 (01:42→08:10)
[2023-08-04] MEDS: acetaminophen 325 mg Tablet 650 MG PO (01:42)
[2023-08-04] MEDS: docusate sodium 100 mg Capsule 200 MG PO ×2 (01:43→21:49)
[2023-08-04] MEDS: bisacodyl 5 mg Tablet PO ×2 (01:43→21:50)
[2023-08-04] MEDS: magnesium oxide 400 mg tablet PO ×2 (01:43→21:49)
--- NOTE | 2023-08-04 02:02 | PC.NURSE ---
Patient does not know the names of many of her medications. Patient states that should all be in your system. Patient educated that we have to make sure they are up to date. Many of the medications in the med rec still need to be verified. Patient had some medication bottles with her, but the majority of her medications were unlabeled in a pill organizer. All of her medications have been locked in the Pyxis. Patient asking for nighttime medications: Dulcolax, Colace, Magnesium, and Mestinon. Dr. Wood ordered okay to give these. Patient is unsure if she takes Magnesium Citrate or Magnesium Oxide, she says it is over the counter. Dr. Wood notified and ordered to give Magnesium Oxide.
[2023-08-04 02:20] LABS: Troponin 5 6HR 13.59 ng/L (0-10)
[2023-08-04 02:21] LABS: Troponin 5 6HR Delta -0.41 ng/L (0-12)
--- NOTE | 2023-08-04 03:35 | PC.NURSE ---
Patient states that she has Dexcom and insulin pump.
--- NOTE | 2023-08-04 06:20 | PC.NURSE ---
pt blood sugar is 193 @0620 per pt dexcom
--- NOTE | 2023-08-04 06:22 | PC.NURSE ---
Addendum entered by Mary Cantu RN 08/04/23 06:42: Dr. Mcgovern ordered okay to use Dexcom readings for insulin administration. Original Note: Patient refusing to have accucheck completed at this time. Patient's Dexcom currently reads 193. Dr. Mcgovern notified that patient is refusing to have fingerstick accuchecks done due to having a Dexcom.
[2023-08-04] MEDS: ipratropium-albuterol 3 mL Neb INHALATION ×3 (07:57→19:49)
--- NOTE | 2023-08-04 08:09 | PC.NURSE ---
Pt refused lantus as she has an insulin pump and does not usually take lantus at home.
[2023-08-04] MEDS: meloxicam 7.5 mg tablet 15 MG PO (08:10)
[2023-08-04] MEDS: pantoprazole DR 40 mg Tablet PO (08:10)
[2023-08-04] MEDS: aspirin 81 mg EC Tablet PO (08:10)
[2023-08-04] MEDS: levothyroxine 50 mcg Tablet 25 MCG PO (08:10)
--- NOTE | 2023-08-04 09:44 | PC.CHAP ---
Pastoral Care Encounter/Spiritual Assessment Type of Contact [] Declined mobile equipment servicer visit [] Patient/Family/Request visit [] Outpatient visit [] Follow-up visit [] Physician referral [] Code/Alert [x] Routine visit [] Staff referral [] Actively dying [] Patient sleeping [] Family support [] [] Out of room [] Palliative care [] [] Receiving care in room [] Pre-surgical visit [] Trauma [] Long length of stay [] ICU visit [] Other: Relational/Emotional Strength [x] Patient feels connected with others/family/visitors/staff [] Distress [] Loneliness/isolation [] Abandonment Spirituality of Patient [x] Person of Celia [] Attends Cheondoism of their Celia [x] Believes in Prayer [] Reads Bible or Sikhism materials [] There are Spiritual issues to be addressed Pipe Coremaker Interventions [x] Prayer [x Active listening [] Non-anxious presence [x] Spiritual/emotional support [] Crisis/trauma care [] Spiritual counseling [] Bereavement support [] Provided bereavement packet [] Provided Bible/devotional materials [] Provided toy/stuffed animal, coloring book to patient or family member [] Provided Communion [] Anointing/[place] [] Salvation [x] Completed spiritual assessment [] Other: Impact on Illness or Injury [] Angry [] Fearful [] Anxious [] Often cries [] Exhaustion [] Unable to work [] Unable to attend yazidi [] Unable to walk/stand [] Unable to read [] Unable to drive [] Unable to eat/drink [] Unable to sleep [] Unable to be with family [] Patient intubated [] Other: Summary Time spent with patient 5 min
--- NOTE | 2023-08-04 11:10 | US_ITS ---
WS: [id number] RIGHT UPPER QUADRANT ULTRASOUND HISTORY: Pain. COMPARISON: None available. Liver: 15.4 cm in length. Normal size liver and echogenicity. No bile duct dilatation or mass. Portal Vein: Normal hepatopetal flow with monophasic waveform. Gallbladder: Normally distended gallbladder with no stones or wall thickening. CBD: 0.4 cm Pancreas: Head is not visualized. Body is normal. Distal pancreatic tail is not visualized. Right kidney: 9.9 cm in length. Central cyst in the renal pelvis measures 1.7 x 1.5 x 1.5 cm. Aorta and IVC: Unremarkable abdominal aorta and IVC. Small RIGHT pleural effusion. No ascites. US/US abdomen limited [id number] IMPRESSION: 1. Negative gallbladder. 2. Small RIGHT pleural effusion. 3. Negative liver.
--- NOTE | 2023-08-04 11:11 | ECG_ITS ---
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 The perfusion scan will be documented separately. DATA: Baseline heart rate was 52 beats per minute. Baseline blood pressure was 151/75 millimeters of mercury. Target heart rate was 164. Maximum heart rate achieved was 81. which was 49 % of the predicted target heart rate. Maximum blood pressure was millimeters of mercury. The reason for ending the test was completion of the protocol. The patient did not experience any symptoms. ELECTROCARDIOGRAM: BASELINE: Sinus bradycardia. Normal axis. Right bundle branch block EXERCISE: After Lexiscan injection, no ST-T changes suggestive of ischemic noted. No arrhythmia noted. CONCLUSION: Please note due to baseline abnormality of the EKG specificity and sensitivity of the EKG portion of LexiScan MIBI stress test will be low 1. EKG not suggestive of ischemia 2. Lexiscan injection unremarkable. 3. Perfusion scan will be documented separately. Electronically Signed On 08-05-2023 21:20:00 CDT by CHRISTINE JOVEL [id number]
--- NOTE | 2023-08-04 11:12 | ECG_ITS ---
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 Measurements Intervals [place] Rate: 58 P: 19 VA: 115 QRS: 27 QRSD: 141 T: 18 QT: 473 QTc: 467 Interpretive Statements SINUS BRADYCARDIA WITH SHORT VA INTERVAL RIGHT BUNDLE BRANCH BLOCK [120+ ms QRS DURATION, UPRIGHT V1, 40+ ms S IN I/aVL/V4/V5/V6] Compared to ECG 08/03/2023 23:10:56 Short VA interval now present Myocardial infarct finding no longer present Electronically Signed On 08-07-2023 13:22:18 CDT by Herminio Ornelas M.D. [id number]
[2023-08-04 12:33] LABS: Estmated Average Glucose 174; Hemoglobin A1C 7.7 % (4.0-6.0)
[2023-08-04 12:37] LABS: Troponin(5th) Baseline 13 ng/L (0-10)
[2023-08-04 12:59] LABS: Alanine Aminotransferase 96 U/L (0-33); Albumin Level 3.5 g/dL (3.5-5.2); Alkaline Phosphatase 146 U/L (35-105); Anion Gap 12.1 (5-19); Aspartate Amino Transferase 33 U/L (0-32); Blood Urea Nitrogen 19 mg/dL (6-20); C Reactive Protein 3.6 mg/L (0.0-4.9); Carbon Dioxide 28 mmol/L (22-29); Chloride 99 mmol/L (98-107); Chol HDL Ratio 2.54 mg/dL (0.0-4.40); Cholesterol 122 mg/dL (0-200); Creatinine Clr Calc Pharmacy 79.8168; Gamma Glutamyl Transferase 58 U/L (5-36); Globulin 2.9 g/dL (1.3-4.6); Glomerular Filtration Rate 74.2 mL/min (90-130); Glucose 241 mg/dL (65-115); HDL Cholesterol 48 mg/dL (60-100); LDL Cholesterol Calculated 56 mg/dL (50-129); LDL HDL Ratio 1.17 RATIO (0.00-3.22); Lipase 32 U/L (13-60); Osmolality Calculated 290 mOsm/kg (285-295); Potassium 4.1 mmol/L (3.5-5.1); Sodium 135 mmol/L (136-145); Total Bilirubin 0.2 mg/dL (0.15-1.2); Total Protein 6.4 g/dL (6.6-8.7); Triglycerides 92 mg/dL (0-150)
--- NOTE | 2023-08-04 13:12 | ECG_ITS ---
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 Measurements Intervals [place] Rate: 54 P: 21 IN: 172 QRS: 2 QRSD: 133 T: 3 QT: 472 QTc: 448 Interpretive Statements SINUS BRADYCARDIA RIGHT BUNDLE BRANCH BLOCK [120+ ms QRS DURATION, UPRIGHT V1, 40+ ms S IN I/aVL/V4/V5/V6] Compared to ECG 08/04/2023 11:27:36 Short IN interval no longer present Electronically Signed On 08-07-2023 13:49:31 CDT by Herminio Ornelas M.D. [id number]
--- NOTE | 2023-08-04 13:22 | P.PN_ITS ---
Vitals/I&O/Wt Last Vital Signs Temp 97.8 F 08/04/23 11:39 Pulse 54 L 08/04/23 11:39 Resp 18 08/04/23 11:39 BP 131/73 08/04/23 11:39 Pulse Ox 97 08/04/23 11:39 O2 Del Method Room Air 08/04/23 11:39 08/03/23 08/04/23 08/04/23 22:59 06:59 14:59 Intake Total 240 / 240 Output Total 1500 / 1500 900 / 900 Balance -1260 / -1260 -900 / -900 Weight last 48 hrs Weight 78.925 kg Weight 78.925 kg Weight 77.111 kg Physical Exam 2 Const: COMMON NORMALS: no acute distress and patient oriented x3 Resp: COMMON NORMALS: normal respiratory effort, No retractions, No use of accessory muscles and clear to auscultation bilaterally AUSCULTATION: clear to auscultation bilaterally Cardio: COMMON NORMALS: regular rate, regular rhythm, S1 normal heart sound present and S2 normal heart sound present RATE: regular rate RHYTHM: r egular rhythm HEART SOUNDS: S1 normal heart sound present and S2 normal heart sound present GI: COMMON NORMALS: Normal to inspection, nondistended, normoactive bowel sounds present and non-tender Extremity: COMMON NORMALS: no pedal edema Neuro: COMMON NORMALS: patient oriented x3 Psych: COMMON NORMALS: mental status grossly normal Data 08/03/23 19:45 08/04/23 11:58 A&P Assessment and plan (1) Abnormal ECG: . (2) Chest pressure: As above. (3) Bilateral lower extremity edema: Evaluate for congestive heart failure as etiology. (4) Diabetes type 1, uncontrolled: Order home dose Lantus her insulin pump Qualifiers: Glycemic state: with hyperglycemia Qualified Code(s): E10.65 - Type 1 diabetes mellitus with hyperglycemia (5) Bradycardia: (6) Orthostatic hypotension: (7) Chest pain: Qualifiers: Chest pain type: unspecified Qualified Code(s): R07.9 - Chest pain, unspecified (8) GERD (gastroesophageal reflux disease): Qualifiers: Esophagitis presence: without esophagitis Qualified Code(s): K21.9 - Gastro-esophageal reflux disease without esophagitis (9) Transaminitis: Plan Chest pain ? Plan -Aspirin, statin ? Serial EKGs, serial troponins, Telemetry monitoring ? Cardiac echo - n.p.o. midnight - cardiac stress test tomorrow Transaminitis ? Right upper quadrant ultrasound Type 2 diabetes mellitus, -Continue Lantus ? Continue low-dose sliding scale Bilateral lower extremity edema, 1+ pitting edema status post Lasix, monitor Full code Lovenox for DVT prophylaxis Attestations 2 Medical Necessity Statement*: Patient requires hospitalization for chest pain, inpatient, greater than 2 midnights Diagnoses Abnormal ECG R94.31 Chest pressure R07.89 Bilateral lower extremity edema R60.0 Uncontrolled type 1 diabetes mellitus with hyperglycemia E10.65 Glycemic state: with hyperglycemia Bradycardia R00.1 Orthostatic hypotension I95.1 Chest pain R07.9 Chest pain type: unspecified Gastroesophageal reflux disease without esophagitis K21.9 Esophagitis presence: without esophagitis Transaminitis R74.01
[2023-08-04 15:06] LABS: Troponin 5 2HR 13.82 ng/L (0-10); Troponin 5 2HR Delta 0.82 ABS# (0-10)
--- NOTE | 2023-08-04 17:12 | ECG_ITS ---
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 Measurements Intervals [place] Rate: 59 P: 49 WA: 172 QRS: 2 QRSD: 135 T: -8 QT: 451 QTc: 450 Interpretive Statements SINUS BRADYCARDIA RIGHT BUNDLE BRANCH BLOCK [120+ ms QRS DURATION, UPRIGHT V1, 40+ ms S IN I/aVL/V4/V5/V6] POSSIBLE ANTERIOR MYOCARDIAL INFARCTION , OF INDETERMINATE AGE [30 ms Q WAVE IN V3/V4, OR R < 0.2 mV IN V4] Compared to ECG 08/04/2023 13:57:08 Myocardial infarct finding now present Electronically Signed On 08-07-2023 13:52:49 CDT by Herminio Ornelas M.D. [id number]
--- NOTE | 2023-08-04 20:55 | PC.NURSE ---
pts blood sugar was 284 from pt dexcom
--- NOTE | 2023-08-04 21:47 | PC.NURSE ---
Patient states her last caffeine intake was one hour ago. Patient educated that she cannot have caffeine due to having a stress test tomorrow. She states no one told me I wasn't supposed to have caffeine.
[2023-08-04] MEDS: atorvastatin 40 mg Tablet 20 MG PO (21:49)
[2023-08-05] VITALS (15 sets, daily range): BP systolic 100–170; BP diastolic 58–87; PULSE 50–83; RESP 16–18; TEMP 36.2–37.1; O2SAT 93–100
--- NOTE | 2023-08-05 07:48 | PC.NURSE ---
Patients dexcom is 142
[2023-08-05] MEDS: regadenoson 0.4 Mg/5 ml Syringe 0.400000000000000022 MG IVP (09:22)
[2023-08-05] MEDS: aspirin 81 mg EC Tablet PO (11:01)
[2023-08-05] MEDS: pantoprazole DR 40 mg Tablet PO (11:01)
[2023-08-05] MEDS: levothyroxine 50 mcg Tablet 25 MCG PO (11:01)
[2023-08-05] MEDS: insulin glargine 100 units/1 mL 15 UNIT SUBCUT (11:02)
--- NOTE | 2023-08-05 11:11 | NMCV_ITS ---
NM ivette perf SPECT r/s* [id number] Katy Hagen Age: 58 Gender: F : 1965 Exam Date: 08/05/2023 08:41 Ordering Phys: Venancio Sousa MD Technologist: SRINI Evans Exam Location: [facility] Indications: Chest pressure STRESS TEST Please see separate stress test report in [facility] for full findings IMAGE PROTOCOL Rest/Stress 1 Lexiscan Day Radiopharmaceutical Dose (mCi) Administration Site Administered by Rest: Tc-99m 10.5 IV SRINI Evans Sestamibi Stress:Tc-99m 32.8 IV SRINI Evans Sestamibi Rest: 05-Aug-2023 60 Discovery 630 Stress: 05-Aug-2023 30 Discovery 630 0.4mg Lexiscan. Images obtained in supine and prone position. SPECT RESULTS Technical Quality: Good Raw Data Analysis: Normal Image Corrections: No attenuation or motion correction applied Summed Stress Score: 0 Summed Rest Score: 0 Summed Difference Score: 0 PERFUSION FINDINGS SPECT images demonstrate homogeneous tracer distribution throughout the myocardium. FUNCTIONAL RESULTS (calculated via Gated SPECT) Stress Image LV EF (%): 68 Stress EDV (mL):91 TID: 1.27 Stress ESV (mL):29 FUNCTIONAL FINDINGS: There is normal left ventricular systolic function. IMPRESSIONS Myocardial perfusion imaging is normal. Increase in TID ratio in the presence of good left ventricle function may represent left ventricular hypertrophy. Fany Villeda MD (Electronically Signed) Final Date: 05 August 2023 11:32 S
[2023-08-05] MEDS: ipratropium-albuterol 3 mL Neb INHALATION ×3 (11:42→21:47)
--- NOTE | 2023-08-05 11:58 | P.CONIM_ITS ---
Providers/Reason For Consult 2 Consulting Physician/Specialty*: Dr. Hayes Reason for Consult*: Chest pain/abnormal stress test Attending Physician: Venancio Sousa MD Primary Care Provider: Carla Blevins MD History of Present Illness History of Present Illness aKty Hagen is a 58 year old female past medical history significant for hypertension continuous tobacco abuse presented with shortness of breath and chest pressure. She was ruled out for acute coronary syndrome, she underwent stress testNuclear portion of the stress test was not suggestive of ischemia however there appeared to be increased transient ischemic dilatation ratio which could be secondary to left ventricle hypertrophy however in the face of chest pressure cannot rule out multivessel coronary artery disease. Patient continues to have off-and-on chest pressure which happened during the stress test as well and continues to happen this afternoon, it is the reason we have been asked to assess the patient. According to the patient she is having symptoms for last few week which includes exertional shortness of breath on moderate exertion relieves at rest however happens occasionally at rest as well. Echocardiogram showed normal ejection fraction no wall motion abnormality at rest. Review of Systems 2 General: Reports: 10 or more systems reviewed and unremarkable except in HPI and below Const: Denies: fever(s) or chills Eyes: Denies: change in vision ENMT: Denies: throat pain or nasal congestion Card: Reports: chest pain, swelling of feet/ankles, lightheadedness and dyspnea on exertion; Denies: palpitations Resp: Reports: dyspnea; Denies: productive cough GI: Denies: abdominal pain, nausea, vomiting or change in stool character : Denies: dysuria Musc: Denies: back pain or extremity pain Skin/Breast: Denies: rash or lesions Neuro: Reports: headache(s); Denies: dizziness Psych: Denies: anxiety or depression Stewart/Lymph: Denies: easy bruising or easy bleeding Medications/Allergies Home Medications Medication Instructions Recorded Confirmed Last Taken Type aspirin 81 mg tablet,delayed 81 mg PO DAILY 07/17/21 08/04/23 1 Day Ago History release (Adult Aspirin Regimen) ~08/03/23 glucagon HCl 1 mg solution for 1 mg SUBCUT Q20M PRN hypoglycemia 08/29/21 08/04/23 Unknown Rx injection (Glucagon (HCl) #1 ea Emergency Kit) blood-glucose meter,continuous #1 ea 10/14/21 08/04/23 Unknown Rx (Dexcom G6 Care Transition Mgr) insulin pump cartridge,automated #1 ea 10/14/21 08/04/23 Unknown Rx dose,BT with controller subcutaneous (Omnipod 5 G6 Intro Kit (Gen 5) subcutaneous cartridge with controller) diabetic shoes with 3 inserts #1 ea 07/08/22 08/04/23 Unknown Rx albuterol sulfate 90 mcg/actuation 2 puff inhalation QID PRN 01/29/23 08/04/23 Unknown Rx aerosol inhaler (ProAir HFA) shortness of breath or wheezing 30 days #18 grams atorvastatin 20 mg tablet 20 mg PO DAILY 90 days #90 tabs 01/29/23 08/04/23 08/02/23 Rx pantoprazole 40 mg tablet,delayed 40 mg PO DAILY 30 days #30 tabs 01/29/23 08/04/23 08/02/23 Rx release magnesium 250 mg tablet 500 mg PO QPM 04/12/23 08/04/23 2 Days Ago History ~08/02/23 bisacodyl 5 mg tablet,delayed 5 mg PO QPM 04/13/23 08/04/23 2 Days Ago History release (Dulcolax (bisacodyl)) ~08/02/23 docusate sodium 100 mg capsule 200 mg PO QPM 04/13/23 08/04/23 2 Days Ago History (Colace) ~08/02/23 triamterene 37.5 1 cap PO DAILY 06/15/23 08/04/23 08/02/23 History mg-hydrochlorothiazide 25 mg capsule blood-glucose sensor (Dexcom G6 #9 ea 06/17/23 08/04/23 Unknown Rx Sensor device) blood-glucose transmitter (Dexcom #1 ea 06/17/23 08/04/23 Unknown Rx G6 Transmitter device) insulin pump cart,automated,BT #36 ea 06/17/23 08/04/23 Unknown Rx (Omnipod 5 G6 Pods (Gen 5) subcutaneous cartridge) insulin aspart U-100 100 unit/mL 70 unit (0.7 mL) SUBCUT DAILY #63 06/22/23 08/04/23 Unknown Rx (3 mL) subcutaneous pen (Novolog mL FlexPen U-100 Insulin aspart) meclizine 25 mg tablet 25 mg PO TID PRN Dizziness 06/26/23 08/04/23 Unknown History meloxicam 15 mg tablet 15 mg PO DAILY PAIN 06/26/23 08/04/23 1 Day Ago History ~08/03/23 insulin glargine 100 unit/mL (3 15 unit (0.15 mL) SUBCUT QAM #15 mL 06/29/23 08/04/23 08/02/23 Rx mL) subcutaneous pen (Lantus Solostar U-100 Insulin) pyridostigmine bromide 60 mg tablet 60 mg PO TID #90 tabs 07/07/23 08/04/23 1 Day Ago Rx ~08/03/23 levothyroxine 25 mcg tablet See Rx Instructions .Route 07/08/23 08/04/23 08/02/23 Rx .COMPLEX #30 tabs ondansetron HCl 4 mg tablet 4 mg PO Q8H PRN nausea and 08/03/23 08/04/23 Unknown Rx vomiting #90 tabs oxybutynin chloride 10 mg 10 mg PO DAILY 90 days #90 tabs 08/03/23 08/04/23 08/02/23 Rx tablet,extended release 24 hr Allergies Allergy/AdvReac Type Severity Reaction Status Date / Time adhesive tape Allergy blisters Verified 08/03/23 17:09 codeine Allergy hives Verified 08/03/23 17:09 Current Medications Generic Name Dose Route Start Last Admin Trade Name Freq PRN Reason Stop Dose Admin Acetaminophen 650 mg 08/03/23 23:56 08/04/23 01:42 Acetaminophen 325 Mg Tablet PO 650 mg Q6H PRN Administration Mild/Mod Pain Or Temp >/= 101 Albuterol/Ipratropium 3 ml 08/04/23 08:00 08/05/23 11:42 Ipratropium-Albuterol 3 Ml Neb INHALATION 3 ml QID.RESPIRATORY BRUCE Administration Aspirin 81 mg 08/04/23 09:00 08/05/23 11:01 Aspirin 81 Mg Ec Tablet PO 81 mg DAILY BRUCE Administration Atorvastatin Calcium 20 mg 08/04/23 21:00 08/04/23 21:49 Atorvastatin 40 Mg Tablet PO 20 mg BEDTIME BRUCE Administration Bisacodyl 5 mg 08/04/23 01:13 08/04/23 21:50 Bisacodyl 5 Mg Tablet PO 5 mg BEDTIME BRUCE Administration Docusate Sodium 200 mg 08/04/23 01:00 08/04/23 21:49 Docusate Sodium 100 Mg Capsule PO 200 mg BEDTIME BRUCE Administration Enoxaparin Sodium 40 mg 08/03/23 23:56 08/04/23 21:50 Enoxaparin 40 Mg/0.4 Ml Syringe SUBCUT 40 mg Q24H BRUCE Administration Insulin Glargine 15 unit 08/04/23 09:00 08/05/23 11:02 Insulin Glargine 100 Units/1 Ml SUBCUT 15 unit DAILY BRUCE Administration Levothyroxine Sodium 25 mcg 08/04/23 09:00 08/05/23 11:01 Levothyroxine 50 Mcg Tablet PO 25 mcg DAILY BRUCE Administration Magnesium Oxide 400 mg 08/04/23 01:24 08/04/23 21:49 Magnesium Oxide 400 Mg Tablet PO 400 mg BEDTIME BRUCE Administration Pantoprazole Sodium 40 mg 08/04/23 09:00 08/05/23 11:[address] 40 Mg Tablet PO 40 mg DAILY BRUCE Administration Pyridostigmine Hatch 60 mg 08/04/23 01:00 08/04/23 08:10 Pyridostigmine 60 Mg Tablet PO 60 mg TID BRUCE Administration PFSH Acute 2 PFSH: Medical History Diabetic gastroparalysis Scalp mass Celiac disease Diabetes Gastroparesis Constipation [place] spotted fever 2016 DKA (diabetic ketoacidosis) Surgical History Hx of colonoscopy History of laparoscopic appendectomy History of tonsillectomy History of 3 sections Family History Sister Clotting disorder Other Cancer Diabetes Hypertension Denies family history of Bleeding disorder Thyroid disease Stroke Social History Smoking and tobacco/nicotine status: never used tobacco/nicotine Dietary Habits: Current diet type/program: regular Caffeine: Yes Exercise: What type of physical activity do you participate in?: none P hysical activity functional status: independent ambulation and normal ROM and activity Safety: Seatbelt use: always Home Safety: Working smoke detector in home: Yes Personal Safety: Do you feel safe at home: Yes Vitals/I&O/Wt Last Vital Signs Temp 97.2 F L 08/05/23 11:47 Pulse 53 L 08/05/23 11:47 Resp 17 08/05/23 11:47 BP 165/69 08/05/23 11:47 Pulse Ox 100 08/05/23 11:47 O2 Del Method Room Air 08/05/23 11:47 08/04/23 08/05/23 08/05/23 22:59 06:59 14:59 Intake Total 960 / 960 Output Total 600 / 1500 1000 / 2500 Balance 360 / -540 -1000 / -1540 Weight last 48 hrs Weight 172 lb 5 oz Weight 174 lb Weight 174 lb Weight 170 lb Physical Exam 2 Narrative: GENERAL: Patient is alert, awake and oriented x3. NECK: No jugular vein distension. HEENT: No cyanosis. No icterus. No pallor. HEART: Regular S1 and S2. No murmur, rub or gallop. LUNGS: Clear to auscultate bilaterally. CENTRAL NERVOUS SYSTEM: Grossly nonfocal. EXTREMITIES: Lower extremities without edema bilaterally. Data 08/03/23 19:45 08/05/23 11:24 A&P Assessment and plan (1) Chest pain: Rule out for acute coronary syndrome, stress test shows increased transient ischemic dilatation in the face of risk factors such as diabetes mellitus continues tobacco abuse and worsening of shortness of breath along with chest pressure could represent multivessel coronary artery disease since patient continues to have chest pressure we will therefore proceed with left heart catheterization in the morning, patient will be n.p.o. tonight. Twelve-lead EKG showed sinus rhythm right bundle branch block otherwise no significant ST ST changes. Qualifiers: Chest pain type: unspecified Qualified Code(s): R07.9 - Chest pain, unspecified (2) RIGGINS (dyspnea on exertion): Worsening of shortness of breath along with chest pressure could be angina: Will proceed with left heart catheterization in the morning. Coding Level of Care Code Acute Code for [facility] Diagnoses Chest pain R07.9 Chest pain type: unspecified RIGGINS (dyspnea on exertion) R06.09
[2023-08-05 12:09] LABS: Alanine Aminotransferase 80 U/L (0-33); Albumin Level 3.7 g/dL (3.5-5.2); Alkaline Phosphatase 150 U/L (35-105); Anion Gap 14.7 (5-19); Aspartate Amino Transferase 36 U/L (0-32); Blood Urea Nitrogen 15 mg/dL (6-20); Calcium 8.9 mg/dL (8.5-10.5); Carbon Dioxide 29 mmol/L (22-29); Chloride 102 mmol/L (98-107); Creatinine Clr Calc Pharmacy 90.7857; Globulin 3.1 g/dL (1.3-4.6); Glomerular Filtration Rate 86.6 mL/min (90-130); Glucose 239 mg/dL (65-115); Lipase 19 U/L (13-60); Osmolality Calculated 301 mOsm/kg (285-295); Potassium 4.7 mmol/L (3.5-5.1); Sodium 141 mmol/L (136-145); Total Bilirubin 0.3 mg/dL (0.15-1.2); Total Protein 6.8 g/dL (6.6-8.7)
[2023-08-05 14:17] LABS: Gamma Glutamyl Transferase 61 U/L (5-36)
--- NOTE | 2023-08-05 15:42 | PC.NURSE ---
Patients Dexacom at lunch was 202
--- NOTE | 2023-08-05 17:22 | P.PN_ITS ---
Subjective 2 Subjective: Patient was seen this morning, currently in stress lab, she continues to have substernal chest pain like something sitting on her chest, she tells me, no fevers, no chills, no cough, reviewed stress test, discussed stress test results with patient, stress test has no acute findings, echocardiogram within normal limits however she continues to complain of substernal chest pain, we discussed cardiology consultation, spoke to Dr. Mcnulty, will consult due to persistent chest pain, patient denies any abdominal pain she does have transaminitis elevated alk phos denies any right upper quadrant pain right upper quadrant ultrasound within normal limits Vitals/I&O/Wt Last Vital Signs Temp 98.7 F 08/05/23 15:57 Pulse 65 08/05/23 15:57 Resp 18 08/05/23 15:57 BP 152/67 08/05/23 15:57 Pulse Ox 98 08/05/23 15:57 O2 Del Method Room Air 08/05/23 15:57 08/05/23 08/05/23 08/05/23 06:59 14:59 22:59 Output Total 1000 / 2500 400 / 400 Balance -1000 / -1540 -400 / -400 Weight last 48 hrs Weight 78.16 kg Weight 78.925 kg Weight 78.925 kg Physical Exam 2 Const: COMMON NORMALS: no acute distress and patient oriented x3 Resp: COMMON NORMALS: normal respiratory effort, No retractions, No use of accessory muscles and clear to auscultation bilaterally AUSCULTATION: clear to auscultation bilaterally Cardio: COMMON NORMALS: regular rate, regular rhythm, S1 normal heart sound present and S2 normal heart sound present RATE: regular rate RHYTHM: r egular rhythm HEART SOUNDS: S1 normal heart sound present and S2 normal heart sound present GI: COMMON NORMALS: Normal to inspection, nondistended, normoactive bowel sounds present and non-tender Extremity: COMMON NORMALS: no pedal edema Neuro: COMMON NORMALS: patient oriented x3 Psych: COMMON NORMALS: mental status grossly normal Data 08/03/23 19:45 08/05/23 11:24 A&P Assessment and plan (1) Abnormal ECG: . (2) Chest pressure: As above. (3) Bilateral lower extremity edema: Evaluate for congestive heart failure as etiology. (4) Diabetes type 1, uncontrolled: Order home dose Lantus her insulin pump Qualifiers: Glycemic state: with hyperglycemia Qualified Code(s): E10.65 - Type 1 diabetes mellitus with hyperglycemia (5) Bradycardia: (6) Orthostatic hypotension: (7) Chest pain: Qualifiers: Chest pain type: unspecified Qualified Code(s): R07.9 - Chest pain, unspecified (8) GERD (gastroesophageal reflux disease): Qualifiers: Esophagitis presence: without esophagitis Qualified Code(s): K21.9 - Gastro-esophageal reflux disease without esophagitis (9) Transaminitis: Plan Chest pain ? Plan -Aspirin, statin ? Serial EKGs, serial troponins, Telemetry monitoring ? Cardiac echo CONCLUSIONS 1-Normal left ventricular size, systolic function and wall thickness, with no regional wall motion abnormalities.left ventricular ejection fraction is estimated at 60 %. Normal diastolic filling pattern. 2-No significant valve abnormalities. 3-There is no pericardial effusion. 4-Right atrial pressure is around 5 mm of mercury. 5-There are no prior echocardiogram studies to compare. - n.p.o. midnight - cardiac stress test IMPRESSIONS Myocardial perfusion imaging is normal. Increase in TID ratio in the presence of good left ventricle function may represent left ventricular hypertrophy. -Patient has persistent chest pain, cardiology consulted, plan for possible coronary angiography tomorrow Transaminitis ? Right upper quadrant ultrasound, within normal limits Type 2 diabetes mellitus, -Continue Lantus ? Continue low-dose sliding scale Bilateral lower extremity edema, 1+ pitting edema status post Lasix, monitor Full code Lovenox for DVT prophylaxis Attestations 2 Medical Necessity Statement*: Patient requires hospitalization for persistent chest pain, cardiology consulted, plans on coronary angiography Diagnoses Abnormal ECG R94.31 Chest pressure R07.89 Bilateral lower extremity edema R60.0 Uncontrolled type 1 diabetes mellitus with hyperglycemia E10.65 Glycemic state: with hyperglycemia Bradycardia R00.1 Orthostatic hypotension I95.1 Chest pain R07.9 Chest pain type: unspecified Gastroesophageal reflux disease without esophagitis K21.9 Esophagitis presence: without esophagitis Transaminitis R74.01
--- NOTE | 2023-08-05 17:26 | PC.NURSE ---
Blood sugar from dexcom was 142 at 0730 this am
--- NOTE | 2023-08-05 17:26 | PC.NURSE ---
Blood sugar was 190 from dexcom this evening
--- NOTE | 2023-08-05 17:27 | PC.NURSE ---
Dr. Sousa notified due to patients insulin in pump will at [address] Sousa ordered sliding scale for patient
[2023-08-05] MEDS: bisacodyl 5 mg Tablet PO (20:59)
[2023-08-05] MEDS: magnesium oxide 400 mg tablet PO (20:59)
[2023-08-05] MEDS: atorvastatin 40 mg Tablet 20 MG PO (20:59)
[2023-08-05] MEDS: docusate sodium 100 mg Capsule 200 MG PO (20:59)
--- NOTE | 2023-08-05 22:35 | PC.NURSE ---
2100 blood glucose check with dexcom 329, patient has insulin pump.
[2023-08-06] VITALS (28 sets, daily range): BP systolic 100–170; BP diastolic 60–87; PULSE 51–76; RESP 12–28; TEMP 36.6–36.7; O2SAT 92–99; BMI 29.5
[2023-08-06] MEDS: enoxaparin 40 mg/0.4 mL Syringe SUBCUT (00:20)
[2023-08-06] MEDS: sodium chloride 0.9% 1,000 ML 50 ML IV (05:28)
--- NOTE | 2023-08-06 06:31 | XACV_ITS ---
Exam Room: [facility] Ht: 163 cm Wt: 78 kg BSA: 1.90 m2 Gender: Female : 1965 Any Known Allergies: Codeine Exam Priority: Routine Procedure(s): Procedure Description: Diagnostic procedure Procedure Description: Coronary Angiography CARLO, Ronal; Diagnostic Cath Status: Urgent Diagnostic Findings * Left main has luminal irregularities without significant stenosis LAD has luminal irregularities without significant stenosis Left circumflex had luminal irregularities without significant stenosis RCA has luminal irregularities without significant stenosis. Recommendations * Usual post cath care. * Isosorbide mononitrate for possible coronary spasm. * Aspirin and statin. Diagnostic RX Recommendation: medical therapy and/or counseling Pressures Phase:Rest AO : 149 / 73 ( 104 ) @ 8:53:00 AM 174 / 82 ( 118 ) @ 8:55:00 AM Clinical Evaluation EBL: 5mL-10mL Procedural Details Procedure Consent Obtained. Pre-Procedure Time Out. Identified patient by full name and date of as verbalized by the patient/guarantor. Does the consent match the physician's order: Yes. Accurate & Complete Informed Consent: Yes. Inpatient/Outpatient History & Physical on Chart: Yes. If H&P is completed, is and addenduem needed: No; If yes, is the addendum complete: N/A. Visualize and Verify Site with Patient/Guarantor: N/A. Relevant Radiology Images available: N/A. Pre-op teaching completed and patient verbalized understanding. The risks, benefits, and alternatives of sedation and/or procedure were discussed by physician. The patient agrees to continue. Procedure started. [facility] Clinical Fraility Score: 2: Well. Informatics Specialist Indications: Worsening Angina, suspected CAD. Chest Pain Symptom Assessment: Typical Angina Symptoms. Cardiovascular Instability: No. Correct patient, site and procedure confirmed by cath team. PERRLA. Strong, equal hand telephone services sales representative bilaterally. Lungs clear x 5 lobes. Physician notified. Baseline sample Acquired. HR: 55 BPM. IV Site on Arrival: 20 gauge in the left forearm. IV Fluids: 0.9% NaCl at KVO. 0 mL infused prior to cytology laboratory manager. Oxygen started at 2liters/min via nasal canula. Physician arrived. right radial was prepped with chloroprep then draped in the usual sterile fashion. right groin was prepped with chloroprep then draped in the usual sterile fashion. Pre Procedural Pulses: right radial was 1+. Equipment: 6F - Radial. Cardiac Cath Pack. ACIST Manifold Kit Model BT 2000. Heparinized Saline (2 units/mL), 1000 mL bag. Physician scrubbed in. Immediate Pre-Procedure Time Out. Correct Patient: Yes; Correct Procedure: Yes; Correct Site: Yes; Correct Patient Position: Yes; Correct Supplies: Yes; Dried Flammable Prep: Yes; Blood Products Available: N/A;. Lidocaine 1% infiltrated to the right radial. Arterial access obtained. A 5 burkinan Rosalino catheter in over wire. Exchange wire out. Glidewire inserted. Glidewire out. Glidewire inserted. Unable to advance catheter using radial approach due to arterial spasm. Wire and catheter removed. Physician moving to femoral approach. A TR Band was successful obtaining hemostatsis at the Right Radial artery insertion site. TR band placed. Hemostasis obtained. Lidocaine 1% infiltrated to the right groin. Arterial access obtained with micropuncture set. A 5 burkinan JR4 catheter in over wire. Multiple views taken of right coronary artery. Catheter removed over the standard wire. A 5 burkinan JL4 catheter in over wire. Multiple views taken of left coronary artery. A Right femoral angiogram was performed to determine safe placement of closure device. Catheter removed over the standard wire. A Angio-Seal VIP ([place]) was successful obtaining hemostatsis at the Right Femoral artery insertion site. Angioseal placed without complications. No signs or symptoms of hematoma noted. Sterile dressing applied per usual sterile fashion. Post Procedure: Pulses reassessed and unchanged. PERRLA. Strong, equal hand telephone services sales representative bilaterally. No VTE prophylaxis required. Contrast type used: Omnipaque 300 mgI/mL, 500 mL bottle. Complications: none. Estimated blood loss: 5mL-10mL. Post-op diagnosis: normal coronaries. Responsiveness - Normal response to verbal stimuli; alert and oriented, PERRLA. Airway - Unaffected, no intervention required; spontaneous ventilation. Circulation: W/N/L, pulses unchanged. Medication's Wasted: Lidocaine 1% = 3 mL. Medication's Wasted: Nitro = 49.6 mg. Medication's Wasted: Heparin = 1000 units. Nausea/Vomiting: No. Procedure completed. Patient transferred by bed to 1st floor. Vital chart was stopped. Access Site Site: Right Radial artery Sheath Size: 6 Fr Hemostasis Method: TR Band Hemostasis Success: Successful Site: Right Femoral artery Sheath Size: 6 Fr Hemostasis Method: Angio-Seal VIP ([employer]) Hemostasis Success: Successful Procedure Medications Start: 7:17 AM Stop: 7:17 AM Medication: Versed Amount: 1 mg Route: I.V. Start: 7:18 AM Stop: 7:18 AM Medication: Fentanyl Amount: 25 mcg Route: I.V. Start: 7:24 AM Stop: 7:24 AM Medication: Fentanyl Amount: 25 mcg Route: I.V. Start: 7:32 AM Stop: 7:32 AM Medication: Nitrogylcerin Amount: 200 mcg Route: I.A. Start: 7:32 AM Stop: 7:32 AM Medication: Versed Amount: 1 mg Route: I.V. Start: 7:36 AM Stop: 7:36 AM Medication: Nitrogylcerin Amount: 200 mcg Route: I.A. Start: 7:39 AM Stop: 7:39 AM Medication: Verapamil Amount: 5 mg Route: I.A. Start: 7:39 AM Stop: 7:39 AM Medication: Fentanyl Amount: 25 mcg Route: I.V. Start: 7:42 AM Stop: 7:42 AM Medication: Fentanyl Amount: 25 mcg Route: I.V. Start: 7:58 AM Stop: 7:58 AM Medication: Zofran (ondansetron) Amount: 4 mg Route: I.V. I, the attending physician, have reviewed and verified all procedure medications. Yes, all medications given per verbal order History/Risk Factors Hypertension: No Dyslipidemia: Yes Peripheral Arterial Disease (PAD): No Myocardial Infarction (MS): No Obesity: No Renal Disease: No Tobacco Use: Never Prior Interventions PCI: No CABG: No Valve Surgery: No Report Signatures Finalized by Fany Villeda MD on 08/06/2023 09:38 PM
[2023-08-06] MEDS: diphenhydrAMINE 50 mg Capsule PO (06:35)
[2023-08-06] MEDS: aspirin 325 mg Tablet PO (06:35)
[2023-08-06 06:36] LABS: Basophils # 0.1 10^3/uL (0.0-0.1); Basophils % 0.8 %; Eosinophils # 0.3 10^3/uL (0.0-0.8); Eosinophils % 3.7 %; Lymphocytes # 1.8 10^3/uL (0.8-4.8); Lymphocytes % 24.6 %; Mean Corpuscular HGB Conc 31.9 g/dL (30-55); Mean Platelet Volume 9.9 fL (7.4-10.4); Monocytes # 0.6 10^3/uL (0.2-0.9); Monocytes % 7.9 %; Neutrophils # 4.63 10^3/uL (1.8-7.7); Neutrophils % 62.7 %; Nucleated Red Blood Cells % 0 %; Platelet Count 190 10^3/cmm (157-399); Red Blood Count 3.71 10^6/uL (3.85-5.65); Red Cell Distribution Width 12.6 % (12.1-15.1); White Blood Count 7.37 10^3/uL (3.29-11.43)
[2023-08-06 07:04] LABS: Blood Urea Nitrogen 16 mg/dL (6-20); Calcium 8.8 mg/dL (8.5-10.5); Carbon Dioxide 27 mmol/L (22-29); Chloride 105 mmol/L (98-107); Creatinine Clr Calc Pharmacy 90.7857; Glomerular Filtration Rate 86.6 mL/min (90-130); Glucose 186 mg/dL (65-115); NT Pro B Type Natriuretic Pept 146 pg/mL (0-125); Osmolality Calculated 300 mOsm/kg (285-295); Sodium 142 mmol/L (136-145)
--- NOTE | 2023-08-06 07:19 | P.HPUD_ITS ---
Surgery/Procedure H&P Update DATE OF PROCEDURE: August 06, 2023 DATE H&P PERFORMED: 08/06/23 H&P UPDATE INFORMATION: I have reviewed H&P completed within last 30 days, I have examined patient prior to procedure and No changes to prior documentation PRIMARY INDICATION FOR PROCEDURE: Patient has been explained all risk benefits and alternative for the procedure. Patient understand risk for stroke vascular injury nerve damage major mi nor bleed contrast induced nephropathy bruising and hematoma. She understood and would like to proceed with it. She is a candidate for DAPT PLANNED PROCEDURE: Left heart cath/PCI if indicated AIRWAY EVAL/ANESTHESIA PLAN: normal airway, ASA III, Risks, benefits & alternatives of sedation and/or procedure discussed and Patient agrees to continue as planned ADDITIONAL INFORMATION: Patient has been explained all risk benefits and alternative for the procedure she understands risk for stroke major minor bleed infection hematoma vascular nerve injury and contrast induced nephropathy.
--- NOTE | 2023-08-06 08:20 | PM.PN ---
Subjective Subjective: Status post left heart catheterization, severe right radial spasm noted therefore we have to switch to the groin. No significant obstructive coronary artery disease noted. Vitals/I&O/Wt Last Vital Signs Temp 98.6 F 08/05/23 20:00 Pulse 67 08/06/23 05:09 Resp 18 08/06/23 05:07 BP 117/69 08/06/23 05:07 Pulse Ox 96 08/06/23 05:07 O2 Del Method Room Air 08/05/23 20:00 08/05/23 08/06/23 08/06/23 22:59 06:59 14:59 Intake Total 360 / 360 Output Total 600 / 1000 Balance -240 / -640 Weight last 48 hrs Weight 172 lb 5 oz Weight 172 lb 5 oz Physical Exam Const: OTHER: GENERAL: Patient is alert, awake and oriented x3. NECK: No jugular vein distension. HEENT: No cyanosis. No icterus. No pallor. HEART: Regular S1 and S2. No murmur, rub or gallop. LUNGS: Clear to auscultate bilaterally. CENTRAL NERVOUS SYSTEM: Grossly nonfocal. EXTREMITIES: Lower extremities without edema Data 08/06/23 05:26 08/06/23 05:26 A&P Assessment and plan (1) Chest pain: Patient underwent left heart catheterization today for continuous off-and-on chest pressure, she was noted to have no significant obstructive coronary artery disease, she had severe radial artery spasm therefore we have to switch to the groin. Most likely explanation for her chest pressure is endothelial dysfunction due to smoking and coronary spasm. Recommend adding aspirin and statin and isosorbide mononitrate 30 mg once a day. After completing bedrest patient can be discharged in 4 to 5 hours. Qualifiers: Chest pain type: unspecified Qualified Code(s): R07.9 - Chest pain, unspecified Attestations Medical Necessity Statement*: Patient can be discharged as above Coding Level of Care Code Acute Code for [facility] Diagnoses Chest pain R07.9 Chest pain type: unspecified
[2023-08-06] MEDS: levothyroxine 50 mcg Tablet 25 MCG PO (09:03)
[2023-08-06] MEDS: pantoprazole DR 40 mg Tablet PO (09:04)
[2023-08-06] MEDS: aspirin 81 mg EC Tablet PO (09:04)
--- NOTE | 2023-08-06 11:56 | P.CONIM_ITS ---
Providers/Reason For Consult 2 Attending Physician: Venancio Sousa MD Primary Care Provider: Carla Blevins MD History of Present Illness History of Present Illness Katy Hagen is a 58 year old female Medications/Allergies Home Medications Medication Instructions Recorded Confirmed Last Taken Type aspirin 81 mg tablet,delayed 81 mg PO DAILY 07/17/21 08/04/23 1 Day Ago History release (Adult Aspirin Regimen) ~08/03/23 glucagon HCl 1 mg solution for 1 mg SUBCUT Q20M PRN hypoglycemia 08/29/21 08/04/23 Unknown Rx injection (Glucagon (HCl) #1 ea Emergency Kit) blood-glucose meter,continuous #1 ea 10/14/21 08/04/23 Unknown Rx (Dexcom G6 Electronics Manufacturer) insulin pump cartridge,automated #1 ea 10/14/21 08/04/23 Unknown Rx dose,BT with controller subcutaneous (Omnipod 5 G6 Intro Kit (Gen 5) subcutaneous cartridge with controller) diabetic shoes with 3 inserts #1 ea 07/08/22 08/04/23 Unknown Rx albuterol sulfate 90 mcg/actuation 2 puff inhalation QID PRN 01/29/23 08/04/23 Unknown Rx aerosol inhaler (ProAir HFA) shortness of breath or wheezing 30 days #18 grams atorvastatin 20 mg tablet 20 mg PO DAILY 90 days #90 tabs 01/29/23 08/04/23 08/02/23 Rx pantoprazole 40 mg tablet,delayed 40 mg PO DAILY 30 days #30 tabs 01/29/23 08/04/23 08/02/23 Rx release magnesium 250 mg tablet 500 mg PO QPM 04/12/23 08/04/23 2 Days Ago History ~08/02/23 bisacodyl 5 mg tablet,delayed 5 mg PO QPM 04/13/23 08/04/23 2 Days Ago History release (Dulcolax (bisacodyl)) ~08/02/23 docusate sodium 100 mg capsule 200 mg PO QPM 04/13/23 08/04/23 2 Days Ago History (Colace) ~08/02/23 triamterene 37.5 1 cap PO DAILY 06/15/23 08/04/23 08/02/23 History mg-hydrochlorothiazide 25 mg capsule blood-glucose sensor (Dexcom G6 #9 ea 06/17/23 08/04/23 Unknown Rx Sensor device) blood-glucose transmitter (Dexcom #1 ea 06/17/23 08/04/23 Unknown Rx G6 Transmitter device) insulin pump cart,automated,BT #36 ea 06/17/23 08/04/23 Unknown Rx (Omnipod 5 G6 Pods (Gen 5) subcutaneous cartridge) insulin aspart U-100 100 unit/mL 70 unit (0.7 mL) SUBCUT DAILY #63 06/22/23 08/04/23 Unknown Rx (3 mL) subcutaneous pen (Novolog mL FlexPen U-100 Insulin aspart) meclizine 25 mg tablet 25 mg PO TID PRN Dizziness 06/26/23 08/04/23 Unknown History meloxicam 15 mg tablet 15 mg PO DAILY PAIN 06/26/23 08/04/23 1 Day Ago History ~08/03/23 insulin glargine 100 unit/mL (3 15 unit (0.15 mL) SUBCUT QAM #15 mL 06/29/23 08/04/23 08/02/23 Rx mL) subcutaneous pen (Lantus Solostar U-100 Insulin) pyridostigmine bromide 60 mg tablet 60 mg PO TID #90 tabs 07/07/23 08/04/23 1 Day Ago Rx ~08/03/23 levothyroxine 25 mcg tablet See Rx Instructions .Route 07/08/23 08/04/23 08/02/23 Rx .COMPLEX #30 tabs ondansetron HCl 4 mg tablet 4 mg PO Q8H PRN nausea and 08/03/23 08/04/23 Unknown Rx vomiting #90 tabs oxybutynin chloride 10 mg 10 mg PO DAILY 90 days #90 tabs 08/03/23 08/04/23 08/02/23 Rx tablet,extended release 24 hr Allergies Allergy/AdvReac Type Severity Reaction Status Date / Time adhesive tape Allergy blisters Verified 08/03/23 17:09 codeine Allergy hives Verified 08/03/23 17:09 Current Medications Generic Name Dose Route Start Last Admin Trade Name Freq PRN Reason Stop Dose Admin Acetaminophen 650 mg 08/03/23 23:56 08/04/23 01:42 Acetaminophen 325 Mg Tablet PO 650 mg Q6H PRN Administration Mild/Mod Pain Or Temp >/= 101 Albuterol/Ipratropium 3 ml 08/04/23 08:00 08/06/23 11:33 Ipratropium-Albuterol 3 Ml Neb INHALATION Not Given QID.RESPIRATORY BRUCE Aspirin 81 mg 08/04/23 09:00 08/06/23 09:04 Aspirin 81 Mg Ec Tablet PO 81 mg DAILY BRUCE Administration Atorvastatin Calcium 20 mg 08/04/23 21:00 08/05/23 20:59 Atorvastatin 40 Mg Tablet PO 20 mg BEDTIME BRUCE Administration Bisacodyl 5 mg 08/04/23 01:13 08/05/23 20:59 Bisacodyl 5 Mg Tablet PO 5 mg BEDTIME BRUCE Administration Docusate Sodium 200 mg 08/04/23 01:00 08/05/23 20:59 Docusate Sodium 100 Mg Capsule PO 200 mg BEDTIME BRUCE Administration Enoxaparin Sodium 40 mg 08/03/23 23:56 08/06/23 00:20 Enoxaparin 40 Mg/0.4 Ml Syringe SUBCUT 40 mg Q24H BRUCE Administration Sodium Chloride 1,000 mls @ 50 mls/hr 08/05/23 21:02 08/06/23 09:08 Sodium Chloride 0.9% IV 08/06/23 17:01 100 mls/hr .Q20H ONE Infusion Sodium Chloride 1,000 mls @ 100 mls/hr 08/06/23 08:15 08/06/23 09:08 Sodium Chloride 0.9% IV Not Given .Q10H BRUCE Insulin Glargine 15 unit 08/04/23 09:00 08/06/23 09:01 Insulin Glargine 100 Units/1 Ml SUBCUT Not Given DAILY BRUCE Levothyroxine Sodium 25 mcg 08/04/23 09:00 08/06/23 09:03 Levothyroxine 50 Mcg Tablet PO 25 mcg DAILY BRUCE Administration Magnesium Oxide 400 mg 08/04/23 01:24 08/05/23 20:59 Magnesium Oxide 400 Mg Tablet PO 400 mg BEDTIME BRUCE Administration Pantoprazole Sodium 40 mg 08/04/23 09:00 08/06/23 09:[address] 40 Mg Tablet PO 40 mg DAILY BRUCE Administration Pyridostigmine [place] 60 mg 08/04/23 01:00 08/04/23 08:10 Pyridostigmine 60 Mg Tablet PO 60 mg TID BRUCE Administration PFSH Acute 2 PFSH: Medical History Diabetic gastroparalysis Scalp mass Celiac disease Diabetes Gastroparesis Constipation [place] spotted fever 2016 DKA (diabetic ketoacidosis) Surgical History Hx of colonoscopy History of laparoscopic appendectomy History of tonsillectomy History of 3 sections Family History Sister Clotting disorder Other Cancer Diabetes Hypertension Denies family history of Bleeding disorder Thyroid disease Stroke Social History Smoking and tobacco/nicotine status: never used tobacco/nicotine Vitals/I&O/Wt Last Vital Signs Temp 97.9 F 08/06/23 11:46 Pulse 65 08/06/23 11:46 Resp 16 08/06/23 11:46 BP 140/73 08/06/23 11:46 Pulse Ox 98 08/06/23 11:46 O2 Del Method Room Air 08/06/23 11:46 08/05/23 08/06/23 08/06/23 22:59 06:59 14:59 Intake Total 360 / 360 423.333 / 423.333 Output Total 600 / 1000 Balance -240 / -640 423.333 / 423.333 Weight last 48 hrs Weight 172 lb 5 oz Weight 172 lb 5 oz Data 08/06/23 05:26 08/06/23 05:26 Coding Level of Care Code Acute Code for Chg Fwd
--- NOTE | 2023-08-06 12:32 | PM.DCS ---
Discharge Providers Date of Admission: 08/03/23 23:40 Date of Discharge: August 06, 2023 Attending Provider at Admission: Rey Mcgovern DO Attending Provider at Discharge: Venancio Sousa MD Primary Care Provider: Carla Blevins MD Diagnoses at Discharge Discharge Diagnosis (1) Chest pain: Status: Acute Qualifiers: Chest pain type: unspecified Qualified Code(s): R07.9 - Chest pain, unspecified Reason for Visit Reason for Visit: CP PCP sent due to EKG Hospital Course Hospital Course Katy Hagen is a 58 year old female with diabetes, celiac disease, hyperlipidemia, gastroparesis, bradycardia and dizziness found to be orthostatic and 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 Patient was started on pyridostigmine bromide by Dr. Gee and an echo was ordered but not done yet. Patient was experiencing chest heaviness for the last 2 days. She thought she had bronchitis and went to her primary care provider. She had an abnormal EKG and was sent to the emergency room. She also complains of severe lower extremity swelling and the only reason why it is less if she laid in bed all day today. The heaviness is still present she denies nausea or vomiting associated. She denies any radiation of this discomfort anywhere else. Patient presented to [facility] chest pain, manage on aspirin, statin, no significant delta troponin, no acute ST-T wave changes, echocardiogram showed an EF of 60%, no significant wall motion abnormalities, stress test low probability, due to persistent chest pain cardiology was consulted, underwent coronary angiography, no obstructive CAD For transaminitis, right upper quadrant ultrasound within normal limits, will have her follow-up with general surgery as outpatient due to persistent transaminitis, elevated alk phos for consideration of further testing Physical Exam Const: COMMON NORMALS: no acute distress and patient oriented x3 Resp: COMMON NORMALS: normal respiratory effort, No retractions, No use of accessory muscles and clear to auscultation bilaterally AUSCULTATION: clear to auscultation bilaterally Cardio: COMMON NORMALS: regular rate, regular rhythm, S1 normal heart sound present and S2 normal heart sound present RATE: regular rate RHYTHM: regular rhythm HEART SOUNDS: S1 normal heart sound present and S2 normal heart sound present GI: COMMON NORMALS: Normal to inspection, nondistended, normoactive bowel sounds present and non-tender Extremity: COMMON NORMALS: no pedal edema Neuro: COMMON NORMALS: patient oriented x3 Psych: COMMON NORMALS: mental status grossly normal Discharge Data Studies Completed and Pending Completed Studies During Hospitalization Category Date Time Status Sestamibi Stress Test Request Routine Exams 08/04/23 11:11 Completed XR chest 1V portable [id number] Stat Exams 08/03/23 17:01 Completed NM ivette perf SPECT r/s* [id number] Routine Nuc Med 08/05/23 11:11 Completed CV. echo complete* [id number] Routine Ultrasound 08/03/23 23:39 Completed US abdomen limited [id number] Routine Ultrasound 08/04/23 11:10 Completed Pending at discharge Category Date Time Status [employer] request for service Routine Exams 08/06/23 06:31 Ordered Basic Metabolic Panel AM LABS Lab 08/07/23 04:00 Ordered Basic Metabolic Panel AM LABS Lab 08/08/23 04:00 Ordered Complete Blood Count w/Auto AM LABS Lab 08/07/23 04:00 Ordered Complete Blood Count w/Auto AM LABS Lab 08/08/23 04:00 Ordered NT Pro B Type Natriuretic Pept QAM Lab 08/07/23 06:00 Ordered NT Pro B Type Natriuretic Pept QAM Lab 08/08/23 06:00 Ordered Radiology Impressions Chest X-Ray 08/03/23 17:01 IMPRESSION: No acute findings. Abdomen Ultrasound 08/04/23 11:10 IMPRESSION: 1. Negative gallbladder. 2. Small RIGHT pleural effusion. 3. Negative liver. Laboratory Results WBC 7.37 10^3/uL (3.29-11.43) 08/06/23 05:26 RBC 3.71 10^6/uL (3.85-5.65) L 08/06/23 05:26 Hgb 11.50 g/dL (11.27-16.99) 08/06/23 05:26 Hct 36.0 % (36-47) 08/06/23 05:26 MCV 97.0 fl (85-98) 08/06/23 05:26 MCH 31.0 pg (27-33) 08/06/23 05:26 MCHC 31.9 g/dL (30-55) 08/06/23 05:26 RDW 12.6 % (12.1-15.1) 08/06/23 05:26 Plt Count 190 10^3/cmm (157-399) 08/06/23 05:26 MPV 9.9 fL (7.4-10.4) 08/06/23 05:26 Neut % (Auto) 62.7 % 08/06/23 05:26 Lymph % (Auto) 24.6 % 08/06/23 05:26 [place] % (Auto) 7.9 % 08/06/23 05:26 Eos % (Auto) 3.7 % 08/06/23 05:26 Baso % (Auto) 0.8 % 08/06/23 05:26 Neut # (Auto) 4.63 10^3/uL (1.8-7.7) 08/06/23 05:26 Lymph # (Auto) 1.8 10^3/uL (0.8-4.8) 08/06/23 05:26 [place] # (Auto) 0.6 10^3/uL (0.2-0.9) 08/06/23 05:26 Eos # (Auto) 0.3 10^3/uL (0.0-0.8) 08/06/23 05:26 Baso # (Auto) 0.1 10^3/uL (0.0-0.1) 08/06/23 05:26 Nucleated RBC % (auto) 0 % 08/06/23 05:26 Nucleated RBCs # 0.0 /100WBC 08/06/23 05:26 Sodium 142 mmol/L (136-145) 08/06/23 05:26 Potassium 4.0 mmol/L (3.5-5.1) 08/06/23 05:26 Chloride 105 mmol/L (98-107) 08/06/23 05:26 Carbon Dioxide 27 mmol/L (22-29) 08/06/23 05:26 Anion Gap 14.0 (5-19) 08/06/23 05:26 BUN 16 mg/dL (6-20) 08/06/23 05:26 Creatinine 0.7 mg/dL (0.5-0.9) 08/06/23 05:26 GFR Calculation 86.6 mL/min (90-130) L 08/06/23 05:26 Glucose 186 mg/dL (65-115) H 08/06/23 05:26 Estimat Average Glucose 174 08/04/23 11:58 Hemoglobin A1c 7.7 % (4.0-6.0) H 08/04/23 11:58 Calculated Osmolality 300 mOsm/kg (285-295) H 08/06/23 05:26 Calcium 8.8 mg/dL (8.5-10.5) 08/06/23 05:26 Magnesium 1.7 mg/dL (1.7-2.3) 08/03/23 19:45 Total Bilirubin 0.3 mg/dL (0.15-1.2) 08/05/23 11:24 GGT 61 U/L (5-36) H 08/05/23 11:24 AST 36 U/L (0-32) H 08/05/23 11:24 ALT 80 U/L (0-33) H 08/05/23 11:24 Alkaline Phosphatase 150 U/L (35-105) H 08/05/23 11:24 Troponin T Baseline 13 ng/L (0-10) H 08/04/23 11:58 Troponin T 120 Minute 13.82 ng/L (0-10) H 08/04/23 14:17 Delta Troponin T 0.82 ABS# (0-10) 08/04/23 14:17 Troponin T Hi Sens 6Hr 11.50 ng/L (0-10) H 08/04/23 17:57 Troponin T Hi Sens 6Hr Delta -1.50 ng/L (0-12) L 08/04/23 17:57 C-Reactive Protein 3.6 mg/L (0.0-4.9) 08/04/23 11:58 NT-Pro-B Natriuret Pep 146 pg/mL (0-125) H 08/06/23 05:26 Total Protein 6.8 g/dL (6.6-8.7) 08/05/23 11:24 Albumin 3.7 g/dL (3.5-5.2) 08/05/23 11:24 Globulin 3.1 g/dL (1.3-4.6) 08/05/23 11:24 Triglycerides 92 mg/dL (0-150) 08/04/23 11:58 Cholesterol 122 mg/dL (0-200) 08/04/23 11:58 LDL Cholesterol, Calc 56 mg/dL (50-129) 08/04/23 11:58 HDL Cholesterol 48 mg/dL (60-100) L 08/04/23 11:58 LDL/HDL Ratio 1.17 RATIO (0.00-3.22) 08/04/23 11:58 Cholesterol/HDL Ratio 2.54 mg/dL (0.0-4.40) 08/04/23 11:58 Lipase 19 U/L (13-60) 08/05/23 11:24 Urine Color Yellow (Yellow) 08/03/23 20:32 Urine Appearance Clear (CLEAR) 08/03/23 20:32 Urine pH 8 (5-7) H 08/03/23 20:32 Ur Specific [place] 1.010 (1.005-1.030) 08/03/23 20:32 Urine Protein Neg (Negative) 08/03/23 20:32 Urine Glucose (UA) Norm (Normal) 08/03/23 20:32 Urine Ketones Negative (Negative) 08/03/23 20:32 Urine Blood Neg (Negative) 08/03/23 20:32 Urine Nitrate Negative (Negative) 08/03/23 20:32 Urine Bilirubin Neg (Negative) 08/03/23 20:32 Prot Sulfosalicylic Acd Negative (Negative) 08/03/23 20:32 Urine Urobilinogen Norm mg/dL (Negative) 08/03/23 20:32 Ur Leukocyte Esterase Negative (Negative) 08/03/23 20:32 Vitals Last Vital Signs Temp 97.9 F 08/06/23 11:46 Pulse 65 08/06/23 11:46 Resp 16 08/06/23 11:46 BP 140/73 08/06/23 11:46 Pulse Ox 98 08/06/23 11:46 O2 Del Method Room Air 08/06/23 11:46 Discharge Plan Discharge Patient Disposition: Home Condition: Stable Prescriptions: Continued atorvastatin 20 mg tablet 20 mg PO DAILY 90 Days Qty: 90 3RF albuterol sulfate [ProAir HFA] 90 mcg/actuation HFA aerosol inhaler 2 puff inhalation QID PRN (Reason: shortness of breath or wheezing) 30 Days Qty: 18 5RF pantoprazole 40 mg tablet,delayed release (DR/EC) 40 mg PO DAILY 30 Days Qty: 30 5RF insulin glargine [Lantus Solostar U-100 Insulin] 100 unit/mL (3 mL) insulin pen 15 unit SUBCUT QAM Qty: 15 1RF aspirin [Adult Aspirin Regimen] 81 mg tablet,delayed release (DR/EC) 81 mg PO DAILY Hold Instructions: Resume on 11/23/21. Glucagon (HCl) Emergency Kit 1 mg recon soln 1 mg SUBCUT Q20M PRN (Reason: hypoglycemia) Qty: 1 3RF Rx Instructions: until target blood sugar attained (DME) Dexcom G6 Sensor Device See Rx Instructions .ROUTE .COMPLEX Qty: 9 1RF Dose Instruction: CHANGE EVERY 10 DAYS Rx Instructions: CHANGE EVERY 10 DAYS (DME) Dexcom G6 Transmitter Device See Rx Instructions .Route Qty: 1 1RF Rx Instructions: Change every 90 days. (DME) Omnipod 5 G6 Pods (Gen 5) Cartridge See Rx Instructions .ROUTE .COMPLEX Qty: 36 1RF Dose Instruction: USE DIRECTED CHANGE EVERY 3 DAYS Rx Instructions: USE DIRECTED CHANGE EVERY 3 DAYS triamterene-hydrochlorothiazid 37.5-25 mg capsule 1 cap PO DAILY oxybutynin chloride 10 mg tablet extended release 24hr 10 mg PO DAILY 90 Days Qty: 90 2RF ondansetron HCl 4 mg tablet 4 mg PO Q8H PRN (Reason: nausea and vomiting) Qty: 90 0RF (DME) Dexcom G6 Fruit Checker Misc See Rx Instructions .Route Qty: 1 0RF Rx Instructions: Check BS 4 - 6 times a day. (DME) Omnipod 5 G6 Intro Kit (Gen 5) Cartridge See Rx Instructions .Route Qty: 1 0RF Rx Instructions: As directed (DME) diabetic shoes with 3 inserts See Rx Instructions .Route .MEDSUPPLY Qty: 1 0RF Rx Instructions: As directed to UMESH&O levothyroxine 25 mcg tablet See Rx Instructions .ROUTE .COMPLEX Qty: 30 0RF Dose Instruction: Take 1 tablet by mouth once daily Rx Instructions: Take 1 tablet by mouth once daily magnesium 250 mg Tablet 500 mg PO QPM docusate sodium [Colace] 100 mg Capsule 200 mg PO QPM bisacodyl [Dulcolax (bisacodyl)] 5 mg Tablet,Delayed Release (Dr/Ec) 5 mg PO QPM meclizine 25 mg tablet 25 mg PO TID PRN (Reason: Dizziness) Changed Novolog FlexPen U-100 Insulin 100 unit/mL (3 mL) insulin pen See Rx Instructions .ROUTE .COMPLEX Qty: 63 1RF Rx Instructions: as per insulin drip Held pyridostigmine bromide 60 mg tablet 60 mg PO TID Qty: 90 5RF Hold Instructions: Resume on 08/18/23. Hold until you see cardiology Discontinued meloxicam 15 mg tablet 15 mg PO DAILY Discharge Orders: Discharge Order (Routine); Ordered 08/06/23 Ordered By: Venancio Sousa Referrals: Marvin Craig MD [Physician] - 2 weeks (Transaminitis,) Jodi Briggs FNP [Nurse Practitioner] - 08/11/23 3:00 pm Carla Blevins MD [Primary Care Provider] - 08/11/23 11:15 am Discharge Diet: Cardiac Discharge Activity: Resume usual activity Patient Instructions: Coronary Angioplasty (DC), Opioid Safety, Post Angiogram Home Care Instructions, Pain Management Discharge Attestations Time Spent in Discharge Care*: greater than 30 min Quality Metrics Clinical Quality Measures [ No reported AMI, CVA or VTE this stay] Coding Level of Care Code 04832 Total time (in minutes) for Discharge: 45 Diagnoses Chest pain R07.9 Chest pain type: unspecified
[2023-08-06 12:33] LABS: Glucose Point of Care 287 mg/dL (70-110)
--- NOTE | 2023-08-06 14:51 | PC.NURSE ---
Discharge Note Patient discharged to [home] via [w/c to POV] accompanied by [her son]. Discharge instructions reviewed with patient and/or field representative. Mobile pharmacy medications and/or prescriptions provided. Belongings/home medications returned.
== END 2023-08-06 14:52 | disposition home or self-care (01) ==
LOC: ER 23:13 → MEDSURG 23:40 → CSU 08-05 23:11
PROVIDERS: Emergency Medicine; Internal Medicine Cardiovascular Disease; Admitting Provider Internal Medicine; Emergency Provider Emergency Medicine; PCP Family Medicine; Visit Provider Family Medicine
DX: R07.89 Other chest pain (principal); E11.9 Type 2 diabetes mellitus without complications; K90.0 Celiac disease; E78.5 Hyperlipidemia, unspecified; H81.09 Meniere's disease, unspecified ear; Z79.82 Long term (current) use of aspirin; R60.0 Localized edema; E10.65 Type 1 diabetes mellitus with hyperglycemia; I95.1 Orthostatic hypotension; K21.9 Gastro-esophageal reflux disease without esophagitis; R74.01 Elevation of levels of liver transaminase levels
CPT/HCPCS: 36415; 36416; 71045; 76705; 78452; 80048; 80053; 80061; 81003; 82962; 82977; 83036; 83690; 83735; 83880; 84484; 85025; 86140; 93005; 93017; 93306; 93454; 94640; 96361; 96372; 96374; 96375; 97162; 97165; 99152; 99153; 99285; A9500; C1760; C1769; C1887; C1894; G0269; G0378; J1644; J1650; J1815; J1940; J2250; J2405; J2785; J3010; J3490; J7030; Q0163; Q9967

== ENCOUNTER 2023-09-10 08:00 | Outpatient (CLI) | payer BC, MEDICAID, SELFPAY ==
--- NOTE | 2023-09-10 08:00 | NM_ITS ---
WS: [id number] NUCLEAR MEDICINE HIDA SCAN WITH GALLBLADDER EJECTION FRACTION HISTORY: abdominal pain COMPARISON: 08/04/2023 ultrasound TECHNIQUE: The patient was intravenously injected with 7.6 mCi of TC99m Mebrofenin. Immediate imaging over the right upper quadrant was followed by 5 minute image and additional images for a total of 60 minutes. Normal uptake of radiotracer throughout the liver. Activity identified in the gallbladder at 15 minutes and well distended by 60 minutes. Activity in the proximal small bowel was seen by 20 minutes. Good washout of the radiotracer from the liver by 60 minutes. The patient then drank 8 ounces of Ensure Plus. Ejection fraction at 60 minutes was 92%. Normal GB ej ection fraction is 35-75%. Post fatty meal symptoms: None. NM/NM hepatobiliary w phar* [id number] IMPRESSION: 1. Normal HIDA scan. 2. Normal gallbladder ejection fraction.
== END 2023-09-10 08:01 | disposition home or self-care (01) ==
PROVIDERS: PCP Family Medicine; Visit Provider Surgery
DX: R10.9 Unspecified abdominal pain (principal)
CPT/HCPCS: 78227; A9537

== ENCOUNTER 2023-09-11 15:44 | Outpatient (CLI) | payer BC, MEDICAID, SELFPAY ==
[2023-09-11 16:30] LABS: Basophils # 0.1 10^3/uL (0.0-0.1); Eosinophils # 0.6 10^3/uL (0.0-0.8); Eosinophils % 6.4 %; Hematocrit 37.8 % (36-47); Lymphocytes # 2.2 10^3/uL (0.8-4.8); Lymphocytes % 23.8 %; Mean Corpuscular HGB Conc 34.4 g/dL (30-55); Mean Corpuscular Hemoglobin 31.2 pg (27-33); Mean Corpuscular Volume 90.6 fl (85-98); Monocytes # 0.7 10^3/uL (0.2-0.9); Monocytes % 7.4 %; Neutrophils # 5.78 10^3/uL (1.8-7.7); Neutrophils % 61.2 %; Nucleated Red Blood Cells % 0 %; Platelet Count 219 10^3/cmm (157-399); Red Blood Count 4.17 10^6/uL (3.85-5.65); Red Cell Distribution Width 12.2 % (12.1-15.1); White Blood Count 9.43 10^3/uL (3.29-11.43)
[2023-09-11 16:54] LABS: Alanine Aminotransferase 22 U/L (0-33); Albumin Level 3.5 g/dL (3.5-5.2); Alkaline Phosphatase 126 U/L (35-105); Anion Gap 13.8 (5-19); Aspartate Amino Transferase 20 U/L (0-32); Blood Urea Nitrogen 17 mg/dL (6-20); Calcium 8.9 mg/dL (8.5-10.5); Carbon Dioxide 25 mmol/L (22-29); Chloride 101 mmol/L (98-107); Globulin 3.2 g/dL (1.3-4.6); Glomerular Filtration Rate 74.2 mL/min (90-130); Glucose 229 mg/dL (65-115); Osmolality Calculated 291 mOsm/kg (285-295); Potassium 3.8 mmol/L (3.5-5.1); Sodium 136 mmol/L (136-145); Total Bilirubin 0.2 mg/dL (0.15-1.2); Total Protein 6.7 g/dL (6.6-8.7)
[2023-09-11 17:12] LABS: Estmated Average Glucose 186; Hemoglobin A1C 8.1 % (4.0-6.0)
[2023-09-11 17:19] LABS: Creatinine Urine, Random 199 mg/dL (28-217); Microalbum Creatinine Ratio Ur 10 mg/dL (0-20); Microalbumin Random Urine 2 ug/dL (0-20)
[2023-09-11 20:42] LABS: Chol HDL Ratio 2.24 mg/dL (0.0-4.40); Cholesterol 123 mg/dL (0-200); Free T4 Free Thyroxine 1.22 ng/dL (0.82-1.77); HDL Cholesterol 55 mg/dL (60-100); LDL Cholesterol Calculated 41 mg/dL (50-129); LDL HDL Ratio 0.75 RATIO (0.00-3.22); Thyroid Stimulating Hormone 1.61 uIU/mL (0.27-4.20); Triglycerides 135 mg/dL (0-150)
== END 2023-09-11 15:45 | disposition home or self-care (01) ==
LOC: LAB 15:46
PROVIDERS: Absent Provider Surgery; PCP Family Medicine; Visit Provider Internal Medicine
DX: Z51.81 Encounter for therapeutic drug level monitoring (principal); R10.9 Unspecified abdominal pain; E78.2 Mixed hyperlipidemia; K31.84 Gastroparesis; K90.0 Celiac disease; Z79.1 Long term (current) use of non-steroidal anti-inflammatories (NSAID)
CPT/HCPCS: 36415; 80053; 80061; 82044; 82248; 83036; 84439; 84443; 85025

== ENCOUNTER → 2023-09-16 10:17 | Outpatient (BNVA) | payer BC, MEDICAID, SELFPAY | PROVIDERS: PCP Family Medicine; Visit Provider Family Medicine | DX: Z12.4 Encounter for screening for malignant neoplasm of cervix (principal) | CPT/HCPCS: 87624 ==

== ENCOUNTER 2023-12-24 09:07 | Outpatient (CLI) | payer BC, MEDICAID, SELFPAY ==
--- NOTE | 2023-12-24 09:20 | MM_ITS ---
WS: [id number] BILATERAL SCREENING DIGITAL TOMOSYNTHESIS MAMMOGRAM WITH CAD HISTORY: Z12.39 - Encounter for other screening for malignant neop... COMPARISON: 11/05/2022, 10/12/2019 Bilateral CC and MLO views with tomosynthesis and synthetic mammography submitted. Computer aided det ection analyzed. Breast composition: There are scattered areas of fibroglandular density. No suspicious masses, microc alcifications or architectural distortion. Scattered calcifications in each breast. MM/MM scr BI tomosynthesis [id number] IMPRESSION: BI-RADS: 2 - Benign. FOLLOW UP: 1 Year Follow-up
== END 2023-12-24 09:08 | disposition home or self-care (01) ==
PROVIDERS: PCP Family Medicine; Visit Provider Family Medicine
DX: Z12.31 Encounter for screening mammogram for malignant neoplasm of breast (principal); R92.323 Mammographic fibroglandular density, bilateral breasts; R92.1 Mammographic calcification found on diagnostic imaging of breast
CPT/HCPCS: 77063; 77067

== ENCOUNTER → 2024-01-21 10:30 | Outpatient (BNVA) | payer BC, MEDICAID, SELFPAY | PROVIDERS: PCP Family Medicine; Visit Provider Family Medicine | DX: E03.9 Hypothyroidism, unspecified; J45.990 Exercise induced bronchospasm; E78.2 Mixed hyperlipidemia; H81.01 Meniere's disease, right ear; N32.81 Overactive bladder; K21.9 Gastro-esophageal reflux disease without esophagitis; K31.84 Gastroparesis; E10.65 Type 1 diabetes mellitus with hyperglycemia; J44.9 Chronic obstructive pulmonary disease, unspecified | CPT/HCPCS: 80053; 80061; 82043; 83036; 84439; 84443; 84481; 85025 ==

== ENCOUNTER 2024-03-17 07:36 | Day surgery (SDC) | payer BC, MEDICAID, SELFPAY ==
[2024-03-17 07:45] VITALS: BMI 27.4
[2024-03-17 07:47] VITALS: BP 133/81; PULSE 63; RESP 18; TEMP 36.6; O2SAT 99
[2024-03-17] MEDS: sodium chloride 0.9% 500 ML 15 ML IV (07:50)
[2024-03-17 08:11] LABS: Glucose Point of Care 301 mg/dL (70-110)
--- NOTE | 2024-03-17 08:17 | W.PM.OPSUD ---
Surgery/Procedure H&P Update DATE OF PROCEDURE: March 17, 2024 DATE H&P PERFORMED: 03/02/24 H&P UPDATE INFORMATION: I have reviewed H&P completed within last 30 days, I have examined patient prior to procedure, No changes to prior documentation and H&P is in [facility] on date indicated PLANNED PROCEDURE: Operation Date: 03/17/24 09:00 Proposed Procedures p EGD 34760, K21.9(Not Applicable) - Marvin Craig MD
--- NOTE | 2024-03-17 09:07 | ANES.PREANE2 ---
Pre-Anesthetic Assessment Height/Weight: Height 1.63 m Weight 72.575 kg Temp Pulse Resp BP Pulse Ox O2 Del Method 97.8 F 63 18 133/81 99 Room Air 03/17/24 07:47 03/17/24 07:47 03/17/24 07:47 03/17/24 07:47 03/17/24 07:47 03/17/24 07:47 Operation Date: 03/17/24 09:00 Proposed Procedures p EGD 70107, K21.9(Not Applicable) - Marvin Craig MD Familial anesthetic complications: None Was Beta Beth taken within 24 hours: N/A Was Clonidine taken within 24 hours: N/A Last intake: Intake (patient drank clear citrus drink at 0400) [place] bottle of the juice with her, clear, no pulp. Denies consuming any milk, creamer, or any other liquid with pulp Last Liquid Date 03/17/24 Last Liquid Time 04:00 Last Solid Date 03/16/24 Last Solid Time 21:00 Social Tobacco and No alcohol Exam alert, oriented x 3, clear to auscultation bilaterally and regular rate & rhythm Airway Mallampati: Class II CV/HEM Coronary Artery Disease and Hypertension GI Gastroesophageal Reflux Disease Metabolic Diabetes Mellitus, Hyperlipidemia and Thyroid Disease Anesthetic Plan ASA status: 3 Anesthesia: MAC Risk of > 500 ml blood loss (7ml/kg in children): No Medications/Allergies Home Medications Medication Instructions Recorded Confirmed Last Taken Type aspirin 81 mg tablet,delayed 81 mg PO DAILY 07/17/21 03/16/24 03/16/24 History release (Adult Aspirin Regimen) glucagon HCl 1 mg solution for 1 mg SUBCUT Q20M PRN hypoglycemia 08/29/21 03/16/24 Unknown Rx injection (Glucagon (HCl) #1 ea Emergency Kit) blood-glucose meter,continuous #1 ea 10/14/21 03/16/24 03/16/24 Rx (Dexcom G6 Electrolysis Engineer) insulin pump cartridge,automated #1 ea 10/14/21 03/16/24 03/16/24 Rx dose,BT with controller subcutaneous (Omnipod 5 G6 Intro Kit (Gen 5) subcutaneous cartridge with controller) diabetic shoes with 3 inserts #1 ea 07/08/22 03/16/24 03/16/24 Rx magnesium 250 mg tablet 500 mg PO QPM 04/12/23 03/16/2425 History bisacodyl 5 mg tablet,delayed 5 mg PO QPM 04/13/23 03/16/24 03/16/24 History release (Dulcolax (bisacodyl)) docusate sodium 100 mg capsule 200 mg PO QPM 04/13/23 03/16/24 03/16/24 History (Colace) insulin glargine 100 unit/mL (3 15 unit (0.15 mL) SUBCUT QAM #15 mL 06/29/23 03/16/24 03/16/24 Rx mL) subcutaneous pen (Lantus Solostar U-100 Insulin) triamterene 37.5 0.5 tab PO DAILY 30 days #15 tabs 09/16/23 03/16/24 03/16/24 Rx mg-hydrochlorothiazide 25 mg tablet blood-glucose sensor (Dexcom G6 #9 ea 09/17/23 03/16/24 03/16/24 Rx Sensor device) blood-glucose transmitter (Dexcom #1 ea 09/17/23 03/16/24 03/16/24 Rx G6 Transmitter device) insulin pump cart,automated,BT #36 ea 09/17/23 03/16/24 03/16/24 Rx (Omnipod 5 G6 Pods (Gen 5) subcutaneous cartridge) levothyroxine 25 mcg tablet See Rx Instructions .Route 09/17/23 03/16/24 03/16/24 Rx .COMPLEX #90 tabs pyridostigmine bromide 60 mg tablet See Rx Instructions .Route 12/29/23 03/16/24 03/16/24 Rx .COMPLEX #90 tabs diabetic shoes with 3 inserts #1 ea 01/13/24 03/16/24 03/16/24 Rx albuterol sulfate 90 mcg/actuation 2 puff inhalation QID PRN 01/21/24 03/16/24 03/15/24 Rx aerosol inhaler shortness of breath or wheezing 30 days #18 grams atorvastatin 20 mg tablet 20 mg PO DAILY 90 days #90 tabs 01/21/24 03/16/24 03/16/24 Rx meclizine 25 mg tablet 25 mg PO TID PRN Dizziness 30 days 01/21/24 03/16/24 1 Week Ago Rx #90 tabs ~03/08/24 mirtazapine 15 mg tablet (Remeron) 15 mg PO .at bedtime 30 days #30 01/21/24 03/16/24 03/16/24 Rx tabs ondansetron HCl 4 mg tablet See Rx Instructions .Route 01/21/24 03/16/24 03/16/24 Rx .COMPLEX #90 tabs oxybutynin chloride 10 mg 10 mg PO DAILY 90 days #90 tabs 01/21/24 03/16/24 03/16/24 Rx tablet,extended release 24 hr sucralfate 1 gram tablet (Carafate) 1 g PO QID 30 days #120 tabs 01/21/24 03/16/24 03/16/24 Rx omeprazole 40 mg capsule,delayed 40 mg PO BID 30 days #60 caps 02/01/24 03/16/24 03/16/24 Rx release insulin lispro 100 unit/mL 50 unit (0.5 mL) continuous 02/08/24 03/16/24 03/16/24 Rx subcutaneous solution (Humalog subcutaneous infusion DAILY #50 mL U-100 Insulin) insulin lispro 100 unit/mL 50 unit (0.5 mL) SUBCUT TID #45 mL 03/01/24 03/16/24 03/16/24 Rx subcutaneous pen (Humalog KwikPen (U-100) Insulin) pantoprazole 40 mg tablet,delayed 40 mg PO DAILY 03/15/24 03/16/24 03/16/24 History release Allergies Allergy/AdvReac Type Severity Reaction Status Date / Time adhesive tape Allergy blisters Verified 03/16/24 09:50 codeine Allergy hives Verified 03/16/24 09:50 Current Medications Generic Name Dose Route Start Last Admin Trade Name Freq PRN Reason Stop Dose Admin Sodium Chloride 500 mls @ 15 mls/hr 03/17/24 07:47 03/17/24 07:50 Sodium Chloride 0.9% IV 03/18/24 07:46 15 mls/hr .Q24H PRN Administration COLONOSCOPY FLUIDS PFSH Anesthesia Medical History Diabetic gastroparalysis Scalp mass Celiac disease Diabetes Gastroparesis Constipation Power spotted fever 2015 DKA (diabetic ketoacidosis) Surgical History Hx of colonoscopy History of laparoscopic appendectomy History of tonsillectomy History of 3 sections Family History Sister Clotting disorder Other Cancer Diabetes Hypertension Denies family history of Bleeding disorder Thyroid disease Stroke Social History Smoking and tobacco/nicotine status: current every day tobacco/nicotine user Data Anesthesia Cardiac Studies: Echocardiogram 08/03/23 Sestamibi Stress Test (Cardiology) 08/04/23 Holter Monitor 05/04/23
[2024-03-17 09:30] VITALS: BP 115/66; PULSE 51; RESP 20; TEMP 36.3; O2SAT 98
[2024-03-17 09:50] VITALS: BP 118/71; PULSE 55; RESP 16; O2SAT 98
--- NOTE | 2024-03-17 14:03 | ANE.PACU2 ---
Inpatient post-anesthesia follow up: Airway intact: Yes Vital signs: Temperature 97.4 F Pulse Rate 55 Respiratory Rate 16 Blood Pressure 118/71 Pulse Oximetry 98 Oxygen Delivery Me thod Room Air Oxygen Flow Rate Fraction of Inspir ed Oxygen Hydration adequate: Yes Nausea and vomiting: No Pain level: 1 Mental status: Baseline
== END 2024-03-17 10:05 | disposition home or self-care (01) ==
PROVIDERS: PCP Family Medicine; Visit Provider Surgery
PROC: 0DJ08ZZ Inspection of Upper Intestinal Tract, Via Natural or Artificial Opening Endoscopic (ICD-10-PCS; principal; 2024-03-17 09:00)
DX: K29.50 Unspecified chronic gastritis without bleeding (principal); K29.80 Duodenitis without bleeding; K31.A0 Gastric intestinal metaplasia, unspecified; Z79.82 Long term (current) use of aspirin; Z79.899 Other long term (current) drug therapy; Z79.4 Long term (current) use of insulin; Z96.41 Presence of insulin pump (external) (internal); Z79.890 Hormone replacement therapy; Z91.048 Other nonmedicinal substance allergy status; Z88.5 Allergy status to narcotic agent; E11.43 Type 2 diabetes mellitus with diabetic autonomic (poly)neuropathy; K31.84 Gastroparesis; F17.200 Nicotine dependence, unspecified, uncomplicated; K21.9 Gastro-esophageal reflux disease without esophagitis
CPT/HCPCS: 36416; 43239; 82962; 88305; J2704; J7040

== ENCOUNTER 2024-05-30 10:39 | Outpatient (CLI) | payer BC, MEDICAID, SELFPAY ==
[2024-05-30 11:30] LABS: Estmated Average Glucose 232; Hemoglobin A1C 9.7 % (4.0-6.0)
[2024-05-30 11:39] LABS: Creatinine Urine, Random 202 mg/dL (28-217); Microalbum Creatinine Ratio Ur 10 mg/dL (0-20); Microalbumin Random Urine 2 ug/dL (0-20)
[2024-05-30 11:49] LABS: Alanine Aminotransferase 22 U/L (0-33); Albumin Level 4.1 g/dL (3.5-5.2); Alkaline Phosphatase 137 U/L (35-105); Anion Gap 16.9 (5-19); Aspartate Amino Transferase 25 U/L (0-32); Blood Urea Nitrogen 18 mg/dL (6-20); Calcium 9.8 mg/dL (8.5-10.5); Carbon Dioxide 27 mmol/L (22-29); Chloride 100 mmol/L (98-107); Chol HDL Ratio 2.56 mg/dL (0.0-4.40); Cholesterol 179 mg/dL (0-200); Free T4 Free Thyroxine 1.28 ng/dL (0.82-1.77); Globulin 3.9 g/dL (1.3-4.6); Glomerular Filtration Rate 86.2 mL/min (90-130); Glucose 130 mg/dL (65-115); HDL Cholesterol 70 mg/dL (60-100); LDL Cholesterol Calculated 91 mg/dL (50-129); Osmolality Calculated 294 mOsm/kg (285-295); Potassium 3.9 mmol/L (3.5-5.1); Sodium 140 mmol/L (136-145); Thyroid Stimulating Hormone 2.78 uIU/mL (0.27-4.20); Total Bilirubin 0.3 mg/dL (0.15-1.2); Triglycerides 88 mg/dL (0-150)
== END 2024-05-30 10:40 | disposition home or self-care (01) ==
LOC: LAB 10:41
PROVIDERS: PCP Family Medicine; Visit Provider Internal Medicine
DX: E10.65 Type 1 diabetes mellitus with hyperglycemia (principal); E78.2 Mixed hyperlipidemia
CPT/HCPCS: 36415; 80053; 80061; 82044; 83036; 84439; 84443

== ENCOUNTER 2024-06-27 07:52 | Outpatient (CLI) | payer BC, MEDICAID, SELFPAY ==
--- NOTE | 2024-06-27 08:00 | NM_ITS ---
WS: [id number] NUCLEAR MEDICINE GASTRIC STUDY CLINICAL INFORMATION: gastroparesis TECHNIQUE: Following oral ingestion of cooked egg mixed with 1.01 mCi technetium 99m sulfur colloid, anterior images of the stomach were obtained over the course of 90 minutes. Activity curve was performed over the course of 90 minutes with linear regression analysis. COMPARISON: None. FINDINGS: Oral ingestion of cooked egg mixture Delayed T1 half emptying = 228 minutes Only 3% emptying at 60 minutes Only 21% emptying at 117 minutes NM/[place] gastric [place] [address] IMPRESSION: 1. Markedly delayed T1 half emptying 228 minutes *Normal median T1 half 90 minutes for solid egg meal (45-110 minutes). Delayed gastric retention is defined as 90% retained at 1 hour, 60% at 2 hour s, 30% at 3 hours, and 10% at 4 hours (normal percent gastric retention is 37-9 0% at 1 hour, 30-60% at 2 hours, and 0-10% at 4 hours).
== END 2024-06-27 07:53 | disposition home or self-care (01) ==
LOC: RAD 07:53
PROVIDERS: PCP Family Medicine; Visit Provider Surgery
DX: K31.84 Gastroparesis (principal); R93.89 Abnormal findings on diagnostic imaging of other specified body structures
CPT/HCPCS: 78264; A9541

== ENCOUNTER 2024-09-19 09:30 | Outpatient (CLI) | payer BC, MEDICAID, SELFPAY ==
[2024-09-19 11:55] LABS: Creatinine Urine, Random 195 mg/dL (28-217); Microalbum Creatinine Ratio Ur 21 mg/dL (0-20)
[2024-09-19 12:16] LABS: Estmated Average Glucose 174; Hemoglobin A1C 7.7 % (4.0-6.0)
[2024-09-19 14:58] LABS: Alanine Aminotransferase 49 U/L (0-33); Albumin Level 4.0 g/dL (3.5-5.2); Alkaline Phosphatase 211 U/L (35-105); Anion Gap 16.2 (5-19); Aspartate Amino Transferase 34 U/L (0-32); Blood Urea Nitrogen 15 mg/dL (6-20); Calcium 9.3 mg/dL (8.5-10.5); Carbon Dioxide 27 mmol/L (22-29); Chloride 103 mmol/L (98-107); Cholesterol 170 mg/dL (0-200); Globulin 3.5 g/dL (1.3-4.6); Glucose 144 mg/dL (65-115); HDL Cholesterol 54 mg/dL (60-100); Osmolality Calculated 297 mOsm/kg (285-295); Potassium 4.2 mmol/L (3.5-5.1); Sodium 142 mmol/L (136-145); Total Protein 7.5 g/dL (6.6-8.7); Triglycerides 151 mg/dL (0-150)
== END 2024-09-19 09:31 | disposition home or self-care (01) ==
LOC: LAB 09:34
PROVIDERS: PCP Family Medicine; Visit Provider Internal Medicine
DX: R68.2 Dry mouth, unspecified (principal); E10.65 Type 1 diabetes mellitus with hyperglycemia
CPT/HCPCS: 36415; 80053; 80061; 82044; 83036

== ENCOUNTER 2024-09-27 08:41 | Outpatient (CLI) | payer BC, MEDICAID, SELFPAY ==
--- NOTE | 2024-09-27 09:00 | CT_ITS ---
WS: [email or web address] LDCT LUNG CANCER SCREENING TECHNIQUE: Noncontrast CT of the chest with coronal and sagittal reformatted images. CLINICAL INFORMATION: Z12.2 - Encounter for screening for malignant neoplasm of... COMPARISON: None. DLP: 91.91 mGy.cm DIvol: Mean CTDIvol: 2.20 (mGy) All CT scans at [facility] use at least one of these dose optimization techniques: automated exposure control; mA and/or kV adjustment per patient size (includes targeted exams where dose is matched to clinical indication); or iterative reconstruction. FINDINGS: Normal caliber thoracic aorta. No mediastinal or hilar lymphadenopathy. No axillary lymphadenopathy. Several tiny noncalcified scattered nodules in both lungs. No suspicious pulmonary parenchymal abnormalities. Adrenal glands are normal. Tiny esophageal hiatal hernia. Mild thoracic curve. CT/CT lung screening [id number] IMPRESSION: LUNG-RADS: 2-Benign Appearance or Behavior FOLLOW UP: 12 Month: Continue annual screening with LDCT
== END 2024-09-27 08:42 | disposition home or self-care (01) ==
LOC: RAD 08:43
PROVIDERS: PCP Family Medicine; Visit Provider Family Medicine
DX: Z12.2 Encounter for screening for malignant neoplasm of respiratory organs (principal); F17.210 Nicotine dependence, cigarettes, uncomplicated; R91.8 Other nonspecific abnormal finding of lung field
CPT/HCPCS: 71271

== ENCOUNTER 2024-10-03 12:48 | Outpatient (CLI) | payer BC, MEDICAID, SELFPAY ==
--- NOTE | 2024-10-03 13:00 | XR_ITS ---
WS: [email or web address] SCREENING DEXA SCAN [place] CLINICAL INFORMATION: Z13.820 - Encounter for screening for osteoporosis COMPARISON: None. FINDINGS: The L1-L4 bone mineral density measures 1.308 g/cm2. This corresponds to a T score score of 1.1 and Z score of 1.5. Left femoral neck bone mineral density measures 0.920 g/cm2. This corresponds to a T score of -0.7 and Z score of -0.3. Right femoral neck bone mineral density measures 0.984 g/cm2. This corresponds to a T score -0.2of and Z score of 0.2. Mean femoral neck bone mineral density measures 0.952 g/cm2. This corresponds to a T score of -0.4 and Z score of -0.1. XR/XR DEXA axial skeleton* [id number] IMPRESSION: Normal bone mineralization. Patient's FRAX calculated 10 year probability for major osteoporotic fracture i s 8.1% and osteoporotic hip fracture is 1.4%.
== END 2024-10-03 12:49 | disposition home or self-care (01) ==
LOC: RAD 12:48
PROVIDERS: PCP Family Medicine; Visit Provider Family Medicine
DX: Z13.820 Encounter for screening for osteoporosis (principal); Z78.0 Asymptomatic menopausal state
CPT/HCPCS: 77080